=== PATIENT | male | born 1935 | race Caucasian/White ===

== ENCOUNTER 2019-01-10 08:32 | Inpatient (IN) ==
--- NOTE | 2019-01-10 08:51 | Emergency Department Note ---
Disposition Clinical Impression: Chest pain due to CAD, Elevated troponin I level Disposition: Admitted As Inpatient Condition: Fair [facility]errals: [facility] [Primary Care Provider[facility] - Forms: ED Satisfaction Letter General Adult HPI - General Chief complaint: ED Shortness of Breath/Dyspnea Stated complaint: cp, sob Time Seen by Provider: 01/10/19 08:38 Source: patient Limitations: no limitations Nursing Notes Reviewed: Yes Vital Signs Reviewed: Yes - History of Present Illness HPI Narrative: 83-year-old male with history of VA with stents, congestive heart failure, chronic renal failure presents with shortness breath and chest pain. Patient stated he has shortness of breath for a week. He started chest pain 2 hours ago. He visited [facility]. He was given aspirin, nitroglycerin, and Lasix. Patient reported pain-free when arriving at ER. Patient is on 4 L oxygen. Patient had heart attack in 2015. Onset (ago): hour(s) (2) Location: chest Pain Scale: 0 - Related Data Home Medications Medication Instructions Recorded Confirmed Acetaminophen [Tylenol] 325 mg PO QID PRN 11/24/18 01/10/19 Allopurinol [Zyloprim 100 MG] 200 mg PO DAILY 11/24/18 01/10/19 Aspirin [Lo-Dose Aspirin EC] 81 mg PO DAILY 11/24/18 01/10/19 Cholecalciferol (D-3) [Vitamin D] 4,000 unit PO DAILY 11/24/18 01/10/19 Clobetasol Propionate 0.05% 1 appl TP BID PRN 11/24/18 01/10/19 [Temovate] Clopidogrel [Plavix] 75 mg PO DAILY 11/24/18 01/10/19 Docusate Sodium [Dulcolax Stool 100 mg PO BID 11/24/18 01/10/19 Softener] Furosemide [Lasix] 10 mg PO DAILY 11/24/18 01/10/19 Insulin Glargine,Hum.rec.anlog 42 unit SQ HS 11/24/18 01/10/19 [Lantus Solostar] Isosorbide MONOnitrate (24 HR) 30 mg PO DAILY 11/24/18 01/10/19 [Imdur] Loratadine [Allergy Relief] 10 mg PO DAILY PRN 11/24/18 01/10/19 Nitroglycerin [Nitrostat] 0.4 mg SL Q5MIN PRN 11/24/18 01/10/19 Omeprazole [PriLOSEC] 20 mg PO DAILY 11/24/18 01/10/19 Pregabalin [Lyrica] 75 mg PO BID 11/24/18 01/10/19 Wheat Dextrin [Benefiber] 1 each PO DAILY PRN 11/24/18 01/10/19 amLODIPine [Norvasc] 10 mg PO DAILY 11/24/18 01/10/19 Imatinib Mesylate [Gleevec] 200 mg PO DAILY 01/10/19 01/10/19 Topiramate [Topamax] 25 mg PO DAILY 01/10/19 01/10/19 Previous Rx's Medication Instructions Recorded Metoprolol [Lopressor] 12.5 mg PO BID #28 tablet 11/28/18 Allergies Allergy/AdvReac Type Severity Reaction Status Date / Time pollen extracts Allergy Mild Congested Verified 11/24/18 14:10 tramadol Allergy See Verified 11/25/18 15:23 Comments alirocumab AdvReac See Verified 11/25/18 15:23 Comments ezetimibe [From Zetia] AdvReac See Verified 11/25/18 15:23 Comments fluvastatin AdvReac See Verified 11/25/18 15:23 Comments hydrochlorothiazide AdvReac See Verified 11/25/18 15:23 Comments isosorbide AdvReac See Verified 11/25/18 15:23 Comments lisinopril AdvReac See Verified 11/25/18 15:23 Comments pravastatin AdvReac See Verified 11/25/18 15:23 Comments propranolol AdvReac See Verified 11/25/18 15:23 Comments simvastatin AdvReac See Verified 11/25/18 15:23 Comments Constitutional: Denies: fever, chills Eyes: Denies: eye pain ENT ED: Denies: ear pain Cardiovascular: Reports: chest pain Respiratory: Reports: dyspnea. Denies: cough Gastrointestinal: Denies: abdominal pain Genitourinary: Denies: urgency Musculoskeletal: Denies: back pain Integumentary: Denies: rash Neurological: Denies: headache Psychiatric: Denies: anxiety Endocrine: Denies: fatigue Hematological/Lymphatic: Denies: easy bleeding Allergic/Immunologic: Denies: facial swelling Past Medical History - Past Medical History Medical history: Reports: cancer, CHF, COPD, diabetes, hyperlipidemia, hypertension Psychiatric history: Reports: no psych history - Social History Smoking Status: Former smoker Smokeless Tobacco Status: No Alcohol use: Reports: none Drug use: Reports: none Physical Exam - General Limitations: no limitations General appearance: alert - Head Head exam: atraumatic - Eye Eye exam: Present: normal appearance - ENT ENT exam: normal exam - Neck Neck exam: Present: normal inspection - Chest Chest inspection: Present: normal inspection, symmetric chest wall rise. Absent: tenderness - Respiratory Respiratory exam: Present: normal lung sounds bilaterally. Absent: respiratory distress, wheezes - Cardiovascular Cardiovascular exam: Present: tachycardia - Abdominal Exam Abdominal exam: Present: soft, Non-Tender - Extremities Exam Extremities exam: Present: normal inspection, full ROM. Absent: tenderness - Expanded Lower Extremity Exam Lower leg exam: Present: swelling (bilateral ankles edema) - Back Exam Back exam: Present: normal inspection, full ROM. Absent: tenderness - Neurological Exam Neurological exam: Present: alert, oriented X3 - Psychiatric Psychiatric exam: Present: normal affect, normal mood - Skin Skin exam: Present: warm, intact Course Vital Signs Temperature 97.7 F 01/10/19 08:37 Pulse Rate 105 01/10/19 08:37 Respiratory Rate 24 01/10/19 08:37 Blood Pressure 155/85 01/10/19 08:37 O2 Sat by Pulse Oximetry 97 01/10/19 08:37 Temperature 97.7 F 01/10/19 08:37 Pulse Rate 94 01/10/19 12:14 Respiratory Rate 18 01/10/19 12:14 Blood Pressure 133/61 01/10/19 12:14 O2 Sat by Pulse Oximetry 96 01/10/19 12:14 Oxygen Delivery Oxygen Delivery Nasal Cannula Medical Decision Making - [facility] Narrative Medical decision making narrative: 83 year old male with history of VA, congestive heart failure, kidney failure presents with shortness of breath and chest pain. Pt reported shortness of breath for a week. Started chest pressure this morning. [facility] and [facility] one dose of ASA, nitroglycerin and Lasix 40 mg IV. Patient reported resolved pain in ED. Physical exam: Patient is on 4 L oxygen, no breath distress, bilateral lungs are clear, mild edema in bilateral ankles. EKG: no ST elevation. Chest xray indicated pleural effusion Labs: troponin 0.25 elevated, cr. 2.05 elevated at his baseline. Spoke with oncall resource development director Dr. Segovia. He suggested to start Heparin drip. He will see the patient in floor. Impression: chest pain, elevated troponin. Pt will be admitted to hospital for Heparin drip. Dr. John has seen the patient and agrees the above plan. Dr. John: I discussed the case with the ABC and reviewed the care and agree with her findings assessment plan. The patient presented with chest pain, has a known history of CAD, troponin notably elevated, cardiology and hospitalist consult. Heparin initiated. The patient has already taken aspirin. He appears to be stable and will be admitted for further evaluation. - Lab Data Lab results reviewed: Yes I reviewed the patient's lab results. Result diagrams: 01/10/19 09:42 01/10/19 09:42 Lab Results 01/10/19 01/10/19 01/10/19 Range/Units 09:42 09:42 09:42 WBC 4.0 L (4.3-11.1) K/mcL RBC 2.98 L (4.19-5.50) M/mcL Hgb 9.4 L (12.9-16.9) g/dL Hct 29.5 L (37.5-50.1) % MCV 99.0 (83.0-100.0) fL MCH 31.5 (28.0-33.3) pg MCHC 31.9 (31.6-35.5) g/dL RDW 18.1 H (11.5-14.5) % Plt Count 118 L (140-400) K/mcL MPV 11.5 (9.4-12.4) fL Immature Gran % 0.5 (0-4) % Seg Neutrophils % 93.2 % Lymphocytes % 4.8 % Monocytes % 1.5 % Eosinophils % 0.0 % Basophils % 0.0 % Neutrophils # 3.7 (1.6-8.9) K/mcL Lymphocytes # 0.2 L (0.6-4.6) K/mcL Monocytes # 0.1 (0.0-1.3) K/mcL Eosinophils # 0.0 (0.0-0.6) K/mcL Basophils # 0.0 (0.0-0.2) K/mcL Platelet Estimate Slight Decrease L (Normal) PT 12.9 H (9.4-12.1) Seconds INR 1.1 Heparin Anti-Xa, Unfract (0.30-0.70) IU/mL Sodium 138 (136-145) mEq/L Potassium 4.1 (3.5-5.1) mEq/L Chloride 110 H (98-107) mEq/L Carbon Dioxide 19 L (23-29) mEq/L BUN 33 H (8-23) mg/dL Creatinine 2.05 H (0.70-1.30) mg/dL Est GFR ( Amer) 38 L (> 60) Est GFR (Non-Af Amer) 31 L (> 60) BUN/Creatinine Ratio 16 (6-26) Glucose 217 H (70-105) mg/dL POC Glucose (70-99) mg/dL Est Mean Plasma Glucose mg/dl Hemoglobin A1c ( - 5.6) % Calculated Osmolality 300 (280-300) Lactic Acid (0.5-2.2) mmol/L Calcium 8.1 L (8.6-10.3) mg/dL Total Bilirubin 0.3 (0.3-1.0) mg/dL AST 17 (13-39) Units/L ALT 14 (7-52) Units/L Alkaline Phosphatase 119 H (34-104) Units/L Troponin I 0.25 H* (< 0.04) ng/mL C-Reactive Protein (Less than 10) mg/L Serum Total Protein 6.8 (6.4-8.9) g/dL Albumin 3.8 (3.5-5.7) g/dL Globulin 3.0 (2.4-3.5) g/dL Albumin/Globulin Ratio 1.3 (1.1-2.2) 01/10/19 01/10/19 01/10/19 Range/Units 09:42 09:42 09:42 WBC (4.3-11.1) K/mcL RBC (4.19-5.50) M/mcL Hgb (12.9-16.9) g/dL Hct (37.5-50.1) % MCV (83.0-100.0) fL MCH (28.0-33.3) pg MCHC (31.6-35.5) g/dL RDW (11.5-14.5) % Plt Count (140-400) K/mcL MPV (9.4-12.4) fL Immature Gran % (0-4) % Seg Neutrophils % % Lymphocytes % % Monocytes % % Eosinophils % % Basophils % % Neutrophils # (1.6-8.9) K/mcL Lymphocytes # (0.6-4.6) K/mcL Monocytes # (0.0-1.3) K/mcL Eosinophils # (0.0-0.6) K/mcL Basophils # (0.0-0.2) K/mcL Platelet Estimate (Normal) PT (9.4-12.1) Seconds INR Heparin Anti-Xa, Unfract (0.30-0.70) IU/mL Sodium (136-145) mEq/L Potassium (3.5-5.1) mEq/L Chloride (98-107) mEq/L Carbon Dioxide (23-29) mEq/L BUN (8-23) mg/dL Creatinine (0.70-1.30) mg/dL Est GFR ( Amer) (> 60) Est GFR (Non-Af Amer) (> 60) BUN/Creatinine Ratio (6-26) Glucose (70-105) mg/dL POC Glucose (70-99) mg/dL Est Mean Plasma Glucose 148 mg/dl Hemoglobin A1c 6.8 H ( - 5.6) % Calculated Osmolality (280-300) Lactic Acid 1.3 (0.5-2.2) mmol/L Calcium (8.6-10.3) mg/dL Total Bilirubin (0.3-1.0) mg/dL AST (13-39) Units/L ALT (7-52) Units/L Alkaline Phosphatase (34-104) Units/L Troponin I (< 0.04) ng/mL C-Reactive Protein 16 H (Less than 10) mg/L Serum Total Protein (6.4-8.9) g/dL Albumin (3.5-5.7) g/dL Globulin (2.4-3.5) g/dL Albumin/Globulin Ratio (1.1-2.2) 01/10/19 01/10/19 01/10/19 Range/Units 12:14 12:14 14:05 WBC (4.3-11.1) K/mcL RBC (4.19-5.50) M/mcL Hgb (12.9-16.9) g/dL Hct (37.5-50.1) % MCV (83.0-100.0) fL MCH (28.0-33.3) pg MCHC (31.6-35.5) g/dL RDW (11.5-14.5) % Plt Count (140-400) K/mcL MPV (9.4-12.4) fL Immature Gran % (0-4) % Seg Neutrophils % % Lymphocytes % % Monocytes % % Eosinophils % % Basophils % % Neutrophils # (1.6-8.9) K/mcL Lymphocytes # (0.6-4.6) K/mcL Monocytes # (0.0-1.3) K/mcL Eosinophils # (0.0-0.6) K/mcL Basophils # (0.0-0.2) K/mcL Platelet Estimate (Normal) PT 13.0 H (9.4-12.1) Seconds INR 1.2 Heparin Anti-Xa, Unfract 0.04 L (0.30-0.70) IU/mL Sodium (136-145) mEq/L Potassium (3.5-5.1) mEq/L Chloride (98-107) mEq/L Carbon Dioxide (23-29) mEq/L BUN (8-23) mg/dL Creatinine (0.70-1.30) mg/dL Est GFR ( Amer) (> 60) Est GFR (Non-Af Amer) (> 60) BUN/Creatinine Ratio (6-26) Glucose (70-105) mg/dL POC Glucose 287 H (70-99) mg/dL Est Mean Plasma Glucose mg/dl Hemoglobin A1c ( - 5.6) % Calculated Osmolality (280-300) Lactic Acid (0.5-2.2) mmol/L Calcium (8.6-10.3) mg/dL Total Bilirubin (0.3-1.0) mg/dL AST (13-39) Units/L ALT (7-52) Units/L Alkaline Phosphatase (34-104) Units/L Troponin I 0.24 H* (< 0.04) ng/mL C-Reactive Protein (Less than 10) mg/L Serum Total Protein (6.4-8.9) g/dL Albumin (3.5-5.7) g/dL Globulin (2.4-3.5) g/dL Albumin/Globulin Ratio (1.1-2.2) - Radiology Data Radiology results reviewed: Yes I reviewed the patient's radiology results. EXAMINATION: TWO XRAY VIEWS OF THE CHEST 01/10/2019 8:57 am COMPARISON: 11/24/2018. HISTORY: Chest pain with shortness of breath. FINDINGS: The heart size is enlarged. The pulmonary vasculature is mildly congested. There is increased density involving the right lower chest. There has been removal of the right central venous line. No pneumothorax is seen. There is also increased density involving the left lower lung zone. XR/XR chest 2V IMPRESSION: 1. Cardiomegaly with vascular congestion. 2. Right pleural effusion with associated atelectasis and/or infiltrate. 3. Left lower lobe atelectasis. D/ / Ricki Damon MD / Ricki Damon MD Interpreting Provider: Ricki Damon MD
[2019-01-10 10:09] LABS: Hematocrit 29.5 % (37.5-50.1); Hemoglobin 9.4 g/dL (12.9-16.9); Immature Granulocytes % 0.5 % (0-4); Lymphocytes # 0.2 K/mcL (0.6-4.6); Lymphocytes % 4.8 %; Mean Corpuscular HGB Conc 31.9 g/dL (31.6-35.5); Mean Corpuscular Hemoglobin 31.5 pg (28.0-33.3); Mean Platelet Volume 11.5 fL (9.4-12.4); Monocytes # 0.1 K/mcL (0.0-1.3); Monocytes % 1.5 %; Neutrophils # 3.7 K/mcL (1.6-8.9); Platelet Count 118 K/mcL (140-400); Red Blood Count 2.98 M/mcL (4.19-5.50); Red Cell Distribution Width 18.1 % (11.5-14.5); Segmented Neutrophils % 93.2 %
[2019-01-10 10:12] LABS: Platelet Estimate Slight Decrease (Normal)
[2019-01-10 10:17] LABS: INR 1.1; Prothrombin Time 12.9 Seconds (9.4-12.1)
[2019-01-10 10:35] LABS: Albumin 3.8 g/dL (3.5-5.7); Albumin/Globulin Ratio 1.3 (1.1-2.2); Bilirubin,Total 0.3 mg/dL (0.3-1.0); Calcium 8.1 mg/dL (8.6-10.3); Potassium 4.1 mEq/L (3.5-5.1); Total Protein 6.8 g/dL (6.4-8.9); Troponin I 0.25 ng/mL (< 0.04)
[2019-01-10] MEDS ORDERED: *HR* Heparin 5,000 UNIT/ML VIAL IVP ONE (11:08)
[2019-01-10] MEDS ORDERED: *HR* Heparin 5,000 UNIT/ML VIAL IVP PRN ×2 (11:08)
[2019-01-10] MEDS ORDERED: Naloxone 0.4 MG/ML INJ IVP PRN (12:04)
[2019-01-10] MEDS ORDERED: Ondansetron 4 MG/2 ML VIAL IVP PRN (12:04)
[2019-01-10] MEDS ORDERED: Nitroglycerin 0.4 MG TAB.SUBL SL PRN (12:07)
--- NOTE | 2019-01-10 12:11 | Internal Med History&Physical ---
Date of Encounter: 01/10/19 Time of Encounter: 12:09 Internal Medicine - H&P: HPI Chief complaint: CHEST PAIN Admitted From: Emergency Dept Plans for Post Hospital Care: Home History of present illness: Mr. Aguilar is a 83 year old male with history of CAD status post 3 stent and last 1 2015 CHF, CK D, diabetes mellitus, CML following oncologists at [facility] and currently on treatment, COPD, hyperlipidemia, hypertension was transferred to [facility] from the [facility] with sudden onset of chest pain while resting this morning nonradiating 5 x 6/10,. Patient got admitted for shortness of breath yesterday at [facility]. Patient was recently started 2 L oxygen by nasal cannula 2 weeks ago by home health nurse. Patient was recently discharged from this hospital for renal failure and required 2 times hemodialysis and patient recovered and sent back to the home with home health. Patient denies fever chills nausea vomiting abdominal pain urinary bowel complaint diarrhea. Patient complained of yellowish productive a sputum, fatigue, generalized weakness and tiredness. Denies any recent antibiotic Past Med Surg Social Fam HX - Past Medical History Medical history: cancer, CHF, COPD, diabetes, hyperlipidemia, hypertension Psychiatric history: no psych history - Past Surgical History Additional surgical history: 3 stents placed - Social History Smoking Status: Former smoker Smokeless Tobacco Status: No Alcohol use: none Drug use: none Internal Medicine - H&P: Meds Acetaminophen [Tylenol] 325 mg PO QID PRN 11/24/18 [History] Allopurinol [Zyloprim 100 MG] 200 mg PO DAILY 11/24/18 [History] Aspirin [Lo-Dose Aspirin EC] 81 mg PO DAILY 11/24/18 [History] Cholecalciferol (D-3) [Vitamin D] 4,000 unit PO DAILY 11/24/18 [History] Clobetasol Propionate 0.05% [Temovate] 1 appl TP BID PRN 11/24/18 [History] Clopidogrel [Plavix] 75 mg PO DAILY 11/24/18 [History] Docusate Sodium [Dulcolax Stool Softener] 100 mg PO BID 11/24/18 [History] Furosemide [Lasix] 10 mg PO DAILY 11/24/18 [History] Insulin Glargine,Hum.rec.anlog [Lantus Solostar] 42 unit SQ HS 11/24/18 [History] Isosorbide MONOnitrate (24 HR) [Imdur] 30 mg PO DAILY 11/24/18 [History] Loratadine [Allergy Relief] 10 mg PO DAILY PRN 11/24/18 [History] Nitroglycerin [Nitrostat] 0.4 mg SL Q5MIN PRN 11/24/18 [History] Omeprazole [PriLOSEC] 20 mg PO DAILY 11/24/18 [History] Pregabalin [Lyrica] 75 mg PO BID 11/24/18 [History] Wheat Dextrin [Benefiber] 1 each PO DAILY PRN 11/24/18 [History] amLODIPine [Norvasc] 10 mg PO DAILY 11/24/18 [History] Metoprolol [Lopressor] 12.5 mg PO BID #28 tablet 11/28/18 [Rx] Imatinib Mesylate [Gleevec] 200 mg PO DAILY 01/10/19 [History] Topiramate [Topamax] 25 mg PO DAILY 01/10/19 [History] Allergy/AdvReac Type Severity Reaction Status Date / Time pollen extracts Allergy Mild Congested Verified 11/24/18 14:10 tramadol Allergy See Verified 11/25/18 15:23 Comments alirocumab AdvReac See Verified 11/25/18 15:23 Comments ezetimibe [From Zetia] AdvReac See Verified 11/25/18 15:23 Comments fluvastatin AdvReac See Verified 11/25/18 15:23 Comments hydrochlorothiazide AdvReac See Verified 11/25/18 15:23 Comments isosorbide AdvReac See Verified 11/25/18 15:23 Comments lisinopril AdvReac See Verified 11/25/18 15:23 Comments pravastatin AdvReac See Verified 11/25/18 15:23 Comments propranolol AdvReac See Verified 11/25/18 15:23 Comments simvastatin AdvReac See Verified 11/25/18 15:23 Comments All Systems PM: A 10-system review of systems was performed and is negative for pertinent findings except as documented above in the HPI. - Constitutional Vitals: Temp Pulse Resp BP Pulse Ox 97.7 F 105 24 155/85 97 01/10/19 08:37 01/10/19 08:37 01/10/19 08:37 01/10/19 08:37 01/10/19 08:37 Exam: General appearance: Mild respiratory distress. Get slight out of breath when completing the sentence, A&O X 3 Head exam: Atraumatic Eye exam: EOMI, PERRLA ENT exam: Moist oral mucosa Neck nontender, supple Respiratory exam: Bibasilar crackles Cardiovascular exam: Regular rate and rhythm, no systolic murmur Abdominal exam: Soft, nontender, nondistended, positive bowel sounds Extremities exam: No calf tenderness, +2 pedal edema Present: Skin-no rash, warm, dry, intact Neurological exam: Alert, awake, oriented 3, CN II-XII intact, no focal deficits. No facial droop. Normal speech. Internal Med - H&P Results - Labs CBC & Chem 7: 01/10/19 09:42 01/10/19 09:42 Labs: Short CBC 01/10/19 Range/Units 09:42 WBC 4.0 L (4.3-11.1) K/mcL Hgb 9.4 L (12.9-16.9) g/dL Hct 29.5 L (37.5-50.1) % Plt Count 118 L (140-400) K/mcL Neutrophils # 3.7 (1.6-8.9) K/mcL BMP 01/10/19 09:42 Sodium 138 Potassium 4.1 Chloride 110 H Carbon Dioxide 19 L BUN 33 H Creatinine 2.05 H Glucose 217 H Calcium 8.1 L Cardiac Enzymes 01/10/19 Range/Units 09:42 Troponin I 0.25 H* (< 0.04) ng/mL Liver Function 01/10/19 Range/Units 09:42 Total Bilirubin 0.3 (0.3-1.0) mg/dL AST 17 (13-39) Units/L ALT 14 (7-52) Units/L Alkaline Phosphatase 119 H (34-104) Units/L Albumin 3.8 (3.5-5.7) g/dL - Impressions ITS Impressions Chest X-Ray 01/10/19 08:42 IMPRESSION: 1. Cardiomegaly with vascular congestion. 2. Right pleural effusion with associated atelectasis and/or infiltrate. 3. Left lower lobe atelectasis. D/ / Ricki Damon MD / Ricki Damon MD Interpreting Provider: Ricki Damon MD - Assessment and Plan (1) NSTEMI (non-ST elevated myocardial infarction) Current Visit: Yes Status: Acute Assessment and plan: History of CAD status post stent. Had active chest pain in the morning but chest pain-free now. Raised troponin. ER physician talked to cardiology and he advise to start cardiac heparin drip. Telemetry, serial troponin, aspirin and Plavix statin beta katey nitrate. Echocardiogram recently done. He may need limited echocardiogram if cardiology advice so. Increased troponin can also be due to demand ischemia secondary to infection pneumonia and also volume overloaded due to CHF exacerbation. Echo done on 11/24/18 impressions: LVEF 60-65%. Mild left ventricular diastolic dysfunction. Normal right ventricular structure and function. No significant valvular dysfunction. No pulmonary hypertension. Left Ventricular Wall Motion: Rest Echo Findings All wall segments showed normal motion. (2) Pneumonia Current Visit: Yes Status: Acute Assessment and plan: Possibility of hospital-acquired pneumonia as patient had recent hospitalization last month. Patient had productive shortness of breath, cough, chest x-ray abnormal. Patient also has low white count that could be early sepsis but normal lactic acid-blood culture 2 ordered. Zosyn is started. Continue oxygen supplementation, DuoNeb spirometry (3) CHF (congestive heart failure) Current Visit: No Status: Suspected Assessment and plan: Patient appear in CHF exacerbation and volume overloaded. Will give Lasix 40 mg IV daily with a strict I&O's and daily weight. Further titration of Lasix based on the response. IMPRESSION: 1. Cardiomegaly with vascular congestion. 2. Right pleural effusion with associated atelectasis and/or infiltrate. 3. Left lower lobe atelectasis. Qualifiers: Heart failure type: diastolic Heart failure chronicity: acute Qualified Code(s): I50.31 - Acute diastolic (congestive) heart failure (4) CKD (chronic kidney disease) stage 3, GFR 30-59 ml/min Current Visit: Yes Status: Acute Assessment and plan: Baseline creatinine 2.25. Avoid nephrotoxic drug. BMP monitoring. Will con sult autism motor specialist if needed. Patient required urgent hemo- dialysis twice and last admission (5) Coronary artery disease Current Visit: No Status: Chronic Assessment and plan: Status post stent. Continue above medicine Qualifiers: Coronary Disease-Associated Artery/Lesion type: [place] artery [place] vs. transplanted heart: [place] heart Associated angina: without angina Qualified Code(s): I25.10 - Atherosclerotic heart disease of [place] coronary artery without angina pectoris (6) Hypertension Current Visit: No Status: Chronic Assessment and plan: close monitoring. Home medicine Qualifiers: Hypertension type: essential hypertension Qualified Code(s): I10 - Essential (primary) hypertension (7) CML (chronic myelocytic leukemia) Current Visit: Yes Status: Acute Assessment and plan: Patient is on active treatment. Consulted oncology for further recommendation if needed. Patient follow MANUEL see outpatient at cancer clinic. (8) Diabetes mellitus Current Visit: Yes Status: Acute Assessment and plan: Hemoglobin A1c ordered. Accu-Chek, SSI medium. Diabetic diet. Qualifiers: Diabetes mellitus type: type 2 Diabetes mellitus computer terminal operator insulin use: with computer terminal operator use Diabetes mellitus complication detail: with chronic kidney disease Chronic kidney disease stage: stage 3 (moderate) Qualified Code(s): E11.22 - Type 2 diabetes mellitus with diabetic chronic kidney disease; N18.3 - Chronic kidney disease, stage 3 (moderate); Z79.4 - manager terminal (current) use of insulin (9) Leucopenia Current Visit: Yes Status: Acute Assessment and plan: Could be due to early sepsis as mentioned above or related with underlying cancer. Continue to monitor. (10) DVT prophylaxis Current Visit: No Status: Acute Assessment and plan: Heparin drip at present - Time Spent With Patient Total time spent is greater than 50% in coordination of care (as documented) at patient's floor/unit and/or counseling patient: Greater than 35 minutes
[2019-01-10] MEDS: Heparin 25,000 UNIT/250 ML D5W 25,000 UNIT/250 ML IV.SOLN IVC SCH (12:12)
[2019-01-10] MEDS ORDERED: Ipratropium/Albuterol Neb 3 ML IH PRN (12:17)
[2019-01-10 12:44] LABS: Heparin anti-factor XA UFH 0.04 IU/mL (0.30-0.70); INR 1.2
[2019-01-10] MEDS ORDERED: Dextrose Gel 15 GM/37.5 ML TUBE PO PRN ×2 (12:51)
[2019-01-10] MEDS ORDERED: D5% in Water 1,000 ML IVC PRN (12:51)
[2019-01-10] MEDS ORDERED: *HR* Dextrose 50 % in Water (Syg) 50 ML SYRINGE IVP PRN (12:51)
[2019-01-10] MEDS ORDERED: Acetaminophen 325 MG TABLET PO PRN (12:54)
[2019-01-10] MEDS ORDERED: Loratadine 10 MG TABLET PO PRN (12:54)
[2019-01-10 13:31] LABS: Estimated Average Glucose 148 mg/dl; Hemoglobin A1C 6.8 %
[2019-01-10] MEDS: Insulin LISPRO 300 UNITS/3 ML VIAL SQ SCH ×3 (14:47→21:28)
[2019-01-10] MEDS: Piperacillin/Tazobactam 3.375 GM in 0.9 % Sodium Chloride Mini Bag 100 ML IVPB SCH ×2 (14:48→21:29)
--- NOTE | 2019-01-10 16:27 | Oncology Inp Consult Note ---
<Eben Nava S - Last Filed: 01/10/19 18:59> Date of Encounter: 01/10/19 - Data of Consult Requesting Physician: Jill Loera Primary [facility] Provider: [facility] Medications and Allergies Acetaminophen [Tylenol] 325 mg PO QID PRN 11/24/18 [History] Allopurinol [Zyloprim 100 MG] 200 mg PO DAILY 11/24/18 [History] Aspirin [Lo-Dose Aspirin EC] 81 mg PO DAILY 11/24/18 [History] Cholecalciferol (D-3) [Vitamin D] 4,000 unit PO DAILY 11/24/18 [History] Clobetasol Propionate 0.05% [Temovate] 1 appl TP BID PRN 11/24/18 [History] Clopidogrel [Plavix] 75 mg PO DAILY 11/24/18 [History] Docusate Sodium [Dulcolax Stool Softener] 100 mg PO BID 11/24/18 [History] Furosemide [Lasix] 10 mg PO DAILY 11/24/18 [History] Insulin Glargine,Hum.rec.anlog [Lantus Solostar] 42 unit SQ HS 11/24/18 [History] Isosorbide MONOnitrate (24 HR) [Imdur] 30 mg PO DAILY 11/24/18 [History] Loratadine [Allergy Relief] 10 mg PO DAILY PRN 11/24/18 [History] Nitroglycerin [Nitrostat] 0.4 mg SL Q5MIN PRN 11/24/18 [History] Omeprazole [PriLOSEC] 20 mg PO DAILY 11/24/18 [History] Pregabalin [Lyrica] 75 mg PO BID 11/24/18 [History] Wheat Dextrin [Benefiber] 1 each PO DAILY PRN 11/24/18 [History] amLODIPine [Norvasc] 10 mg PO DAILY 11/24/18 [History] Metoprolol [Lopressor] 12.5 mg PO BID #28 tablet 11/28/18 [Rx] Imatinib Mesylate [Gleevec] 200 mg PO DAILY 01/10/19 [History] Topiramate [Topamax] 25 mg PO DAILY 01/10/19 [History] 3 Allergy/AdvReac Type Severity Reaction Status Date / Time pollen extracts Allergy Mild Congested Verified 11/24/18 14:10 tramadol Allergy See Verified 11/25/18 15:23 Comments alirocumab AdvReac See Verified 11/25/18 15:23 Comments ezetimibe [From Zetia] AdvReac See Verified 11/25/18 15:23 Comments fluvastatin AdvReac See Verified 11/25/18 15:23 Comments hydrochlorothiazide AdvReac See Verified 11/25/18 15:23 Comments isosorbide AdvReac See Verified 11/25/18 15:23 Comments lisinopril AdvReac See Verified 11/25/18 15:23 Comments pravastatin AdvReac See Verified 11/25/18 15:23 Comments propranolol AdvReac See Verified 11/25/18 15:23 Comments simvastatin AdvReac See Verified 11/25/18 15:23 Comments Consult Discharge Plan - Plan Referrals: [facility] [Primary Care Provider] - Inpatient Charges Provider: Dr. Reena Nava Consult - Inpatient: [id number] - Attending Attestation I examined this patient and my medical decision-making was reviewed with the Advanced Practice Nurse. I agree with the documented findings, disposition and treatment plan as described except to the extent set forth below. 1. CML diagnosed in outside hospital at [facility]. Started on imatinib October 2018 and standard dose 400 mg daily. Apparently he was hospitalized with a tumor lysis syndrome. His neutrophils at that time or only 11,000 Since then it has dose reduced 200 mg by mouth twice a day 2. Currently admitted with Sepsis pneumonia treated with IV antibiotics 3. Mildly elevated troponin of 0.24 with CHF symptoms. Imatinib can cause fluid retention as well. Currently CBC Currently neutrophils between [id number]. Platelets have actually improved from before currently 118 and mild anemia hemoglobin between 9-10. We will try to obtain records from [facility] Had a long discussion with the patient. He does have 1+ lower extremity edema. I am not sure if it secondary to imatinib. It should be okay to hold imatinib during the hospitalization and resume on discharge. <Jennifer Haynes - Last Filed: 01/10/19 19:13> Date of Encounter: 01/10/19 Time of Encounter: 17:30 Assessment and Plan (1) CML (chronic myelocytic leukemia) Status: Acute Assessment and plan: Newly diagnosed CML by [facility], started on Imatinib September, He was hospitalized shortly after initiation with tumor lysis syndrome. His neutrophils at that time were around 11,000 Since then it was dose reduced 100 mg by mouth twice a day according to patient We will request records from [facility] Discussed with Dr. Nava-given his good control and presence of BLE edema with CHF exacerbation, he may hold imatinib during his acute admission Imatinib can contribute to fluid retention - Data of Consult Requesting Physician: Jill Loera Primary Care Provider: PCP [place] - Consult Narrative Reason for consult: CML History of present illness: Mr. Aguilar is an 82 year old male with past medical history significant for CML, diabetes on insulin, CKD stage IV, CAD, hypertension He was recently diagnosed with CML around September 2018 and started on imatinib, he sees Dr. Nichols at [facility]. Shortly after imatinib was initiated he was admitted with TLS that was treated and had required urgent hemodialysis. He was transferred to [facility] from the [facility] with sudden onset of chest pain while resting this morning nonradiating 5 x 6/10,. Patient got admitted for shortness of breath yesterday at [facility]. Patient was recently started 2 L oxygen by nasal cannula 2 weeks ago by home health nurse. He has been admitted with pneumonia, chest pain with elevated troponin on heparin gtt and CHF exacerbation. Past Med Surg Social Fam HX - Past Medical History Medical history: cancer, CHF, COPD, diabetes, hyperlipidemia, hypertension Psychiatric history: no psych history - Past Surgical History Additional surgical history: 3 stents placed - Social History Smoking Status: Former smoker Smokeless Tobacco Status: No Alcohol use: none Drug use: none Constitutional: Present: anorexia, fatigue. Absent: chills, fever(s), weight loss Eyes: Absent: change in vision Nose, mouth and throat: Absent: dysphagia, odynophagia Cardiovascular: Present: as per HPI, chest pain, edema Respiratory: Present: cough, dyspnea Gastrointestinal: Absent: abdominal pain, constipation, diarrhea, nausea, vomiting Genitourinary: Absent: dysuria Musculoskeletal: Present: muscle weakness Integumentary: Absent: rash, wounds Neurological: Absent: confusion, dizziness, focal weakness Psychiatric: Present: as per HPI Hematologic/Lymphatic: Present: as per HPI Oncology - Exam - Constitutional General appearance: cooperative, no acute distress, obese, no febrile Exam: appears uncomfortable and short of breath - Head Head exam: Present: atraumatic - ENT ENT exam: Present: mucous membranes moist, normal oropharynx - Respiratory Respiratory exam: Present: decreased breath sounds, CTAB. Absent: respiratory distress - Cardiovascular Cardiovascular exam: Present: RRR - GI/Abdominal GI/Abdominal exam: Present: normal bowel sounds, soft. Absent: tenderness - Additional comments: wright catheter with clear yellow urine - Extremities Exam Extremities exam: Present: pedal edema. Absent: calf tenderness Additional comments: BLE edema - Neurological Exam Neurological exam: Present: alert, oriented X3, no focal deficits, strengths equal and symetr throughout - Psychiatric Psychiatric exam: Present: normal affect, normal mood - Skin Skin exam: Present: dry, intact, normal color, warm
--- NOTE | 2019-01-10 17:34 | Electrocardiograph Report ---
[place] [id number] Test Date: 2019-01-10 Pat Name: Gonzalez Aguilar Department: [id number] Room: 2A22 Gender: M Shuttle Truck Driver: : [id number] Requested By: Samm Olivo Order Number: [id number] Reading MD: Jolly Puga Measurements Intervals [place] Rate: 99 P: -25 GA: 182 QRS: 86 QRSD: 150 T: -8 QT: 366 QTc: 470 Interpretive Statements Sinus rhythm Right bundle branch block Inferior infarct, age indeterminate Electronically Signed On 01-10-2019 17:32:59 EDT by Jolly Puga
--- NOTE | 2019-01-10 17:47 | Electrocardiograph Report ---
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
[2019-01-10] MEDS: Furosemide 40 MG/4 ML VIAL IVP SCH (18:01)
[2019-01-10] MEDS ORDERED: Menthol 9.1 MG LOZENGE PO PRN (21:47)
[2019-01-11 00:50] LABS: Hematocrit 31.7 % (37.5-50.1); Hemoglobin 9.9 g/dL (12.9-16.9); Immature Granulocytes % 0.6 % (0-4); Lymphocytes # 0.3 K/mcL (0.6-4.6); Lymphocytes % 4.6 %; Mean Corpuscular HGB Conc 31.2 g/dL (31.6-35.5); Mean Corpuscular Hemoglobin 31.3 pg (28.0-33.3); Mean Corpuscular Volume 100.3 fL (83.0-100.0); Mean Platelet Volume 11.5 fL (9.4-12.4); Monocytes # 0.4 K/mcL (0.0-1.3); Monocytes % 6.1 %; Platelet Count 143 K/mcL (140-400); Red Blood Count 3.16 M/mcL (4.19-5.50); Red Cell Distribution Width 18.5 % (11.5-14.5); Segmented Neutrophils % 88.7 %
[2019-01-11 00:52] LABS: Neutrophils # 5.9 K/mcL (1.6-8.9)
[2019-01-11 01:10] LABS: Calcium 8.2 mg/dL (8.6-10.3); Chol/HDL Ratio 2.9 (0-4.9); Potassium 4.6 mEq/L (3.5-5.1)
[2019-01-11] MEDS: Piperacillin/Tazobactam 3.375 GM in 0.9 % Sodium Chloride Mini Bag 100 ML IVPB SCH ×3 (06:28→21:03)
[2019-01-11] MEDS: Aspirin Enteric Coated 81 MG Tablet PO SCH (08:33)
[2019-01-11] MEDS: Isosorbide MONOnitrate (24 HR) 30 MG TAB.ER.24H PO SCH (08:34)
[2019-01-11] MEDS: Cholecalciferol (D-3) 1,000 UNIT TABLET PO SCH (08:34)
[2019-01-11] MEDS: Furosemide 40 MG/4 ML VIAL IVP SCH (08:34)
[2019-01-11] MEDS: Insulin LISPRO 300 UNITS/3 ML VIAL SQ SCH ×4 (08:35→21:05)
[2019-01-11] MEDS: IMATINIB MESYLATE 200 MG PO SCH (08:35)
--- NOTE | 2019-01-11 10:59 | Cardiology Consult Note ---
Date of Encounter: 01/11/19 Time of Encounter: 09:00 Assessment and Plan (1) Pneumonia Current Visit: Yes Status: Acute Per cardiology: -Admitted with PNA. -Management per primary service. Qualifiers: Pneumonia type: due to unspecified organism Laterality: unspecified laterality Lung location: unspecified part of lung Qualified Code(s): J18.9 - Pneumonia, unspecified organism (2) CHF (congestive heart failure) Current Visit: No Status: Chronic Per cardiology: -Known diastolic CHF, on diuretics at home. -Chest x-ray with cardiomegaly with vascular congestion and right pleural effusion. -BNP 268. -ON IV lasix, currently net negative 1100ml. -Reports symptom improvement, however still requiring higher O2 than baseline. -TTE 10/2018 with LVEF preserved, no wall motion abnormalities. -Agree with diuresis. Monitor renal function closely. Consider nephrology consult. -Strict i/os, fluid restriction, daily weights. Qualifiers: Heart failure type: diastolic Heart failure chronicity: acute on chronic Qualified Code(s): I50.33 - Acute on chronic diastolic (congestive) heart failure (3) Elevated troponin I level Current Visit: Yes Status: Acute Per cardiology: -Troponins 0.25, 0.24, 0.26 in the setting of PNA, CHF, CKD. -Reports atypical, pleuritic chest pain. -No acute ischemic ECG changes. -TTE 10/2018 with LVEF preserved, no wall motion abnormalities. -On heparin drip, asa, BB. Not on statin due to intolerance. -Do not suspect NSTEMI, suspect demand ischemia. Will repeat limited TTE. No cardiac rehab consult warranted. Discussion w patient/family: The assessment and plan as outlined above was discussed with the patient and/or family members who expressed understanding and agreement. All questions were answered. Thank you for involving us in the care of your patient. Please call with any questions. Discussed and reviewed with History of Present Illness Consult date: 01/10/19 Requesting physician: Emile Olivo Consult reason: elevated troponin Chief complaint: shortness of breath History of present illness: Mr. Aguilar is a 83 year old male with a relevant past medical history of CAD, DM, CKD, CHF, CML, follows at [facility], who presented to [facility] with complaints of shortness of breath. Patient states he had ongoing shortness of breath for 5 days. Patient was noted to have pneumonia and elevated troponin and patient was transferred to [facility]. Cardiology has been consulted for elevated tro ponin. Patient reports yesterday, he had one episode of chest pain while laying in bed coughing. Reports lasted a few minutes and was relieved by one nitro. Denies recurrence of chest pain. Denies exertional symptoms. Reports respiratory status has improved, however still requiring increased doses of O2. Past Med Surg Social Fam HX - Past Medical History Attestation: Yes The following information was validated with the patient. Source: patient, old records reviewed Medical history: cancer, CHF, COPD, diabetes, hyperlipidemia, hypertension Psychiatric history: no psych history - Past Surgical History Additional surgical history: 3 stents placed - Social History Smoking Status: Former smoker Smokeless Tobacco Status: No Alcohol use: none Drug use: none Medications and Allergies Acetaminophen [Tylenol] 325 mg PO QID PRN 11/24/18 [History] Allopurinol [Zyloprim 100 MG] 200 mg PO DAILY 11/24/18 [History] Aspirin [Lo-Dose Aspirin EC] 81 mg PO DAILY 11/24/18 [History] Cholecalciferol (D-3) [Vitamin D] 4,000 unit PO DAILY 11/24/18 [History] Clobetasol Propionate 0.05% [Temovate] 1 appl TP BID PRN 11/24/18 [History] Clopidogrel [Plavix] 75 mg PO DAILY 11/24/18 [History] Docusate Sodium [Dulcolax Stool Softener] 100 mg PO BID 11/24/18 [History] Furosemide [Lasix] 10 mg PO DAILY 11/24/18 [History] Insulin Glargine,Hum.rec.anlog [Lantus Solostar] 42 unit SQ HS 11/24/18 [History] Isosorbide MONOnitrate (24 HR) [Imdur] 30 mg PO DAILY 11/24/18 [History] Loratadine [Allergy Relief] 10 mg PO DAILY PRN 11/24/18 [History] Nitroglycerin [Nitrostat] 0.4 mg SL Q5MIN PRN 11/24/18 [History] Omeprazole [PriLOSEC] 20 mg PO DAILY 11/24/18 [History] Pregabalin [Lyrica] 75 mg PO BID 11/24/18 [History] Wheat Dextrin [Benefiber] 1 each PO DAILY PRN 11/24/18 [History] amLODIPine [Norvasc] 10 mg PO DAILY 11/24/18 [History] Metoprolol [Lopressor] 12.5 mg PO BID #28 tablet 11/28/18 [Rx] Imatinib Mesylate [Gleevec] 200 mg PO DAILY 01/10/19 [History] Topiramate [Topamax] 25 mg PO DAILY 01/10/19 [History] Allergy/AdvReac Type Severity Reaction Status Date / Time pollen extracts Allergy Mild Congested Verified 11/24/18 14:10 tramadol Allergy See Verified 11/25/18 15:23 Comments alirocumab AdvReac See Verified 11/25/18 15:23 Comments ezetimibe [From Zetia] AdvReac See Verified 11/25/18 15:23 Comments fluvastatin AdvReac See Verified 11/25/18 15:23 Comments hydrochlorothiazide AdvReac See Verified 11/25/18 15:23 Comments isosorbide AdvReac See Verified 11/25/18 15:23 Comments lisinopril AdvReac See Verified 11/25/18 15:23 Comments pravastatin AdvReac See Verified 11/25/18 15:23 Comments propranolol AdvReac See Verified 11/25/18 15:23 Comments simvastatin AdvReac See Verified 11/25/18 15:23 Comments All Systems Review: The remainder of the systems were reviewed and are negative - Cardiovascular Cardiovascular: as per HPI, chest pain at rest, dyspnea at rest, dyspnea on exertion Physical Examination Vital Signs, Last 4 Hours Temp Pulse Resp BP Pulse Ox 01/11/19 10:10 17 98 01/11/19 08:25 96 01/11/19 07:08 97.8 F 83 20 144/57 96 General: Conversant, Other (Mild conversational dyspnea noted. ) HEENT: Atraumatic, Normocephaly, Mucus Membranes Moist Neck: No JVD, Normal carotid pulses Cardiac: Reg Rate and Rhythm, Normal S1 and S2, No Murmur Lungs: Other (Inspiratory wheezes noted throughout. ) Neuro: Alert and responsive, No focal deficits noted Abdomen: Soft, Non-Tender Skin: No rashes noted on visualized skin Musculoskeletal: No Chest Wall Tenderness Extremities: No Clubbing, No Cyanosis, No Edema, Normal Pulses Results 01/11/19 00:15 01/11/19 00:15 Lab Results Active Medications Acetaminophen (Tylenol) 325 mg PO QID PRN PRN Reason: Pain Stop: 07/12/19 12:55 Albuterol/Ipratropium (Duoneb) 3 ml IH [id number] PRN PRN Reason: Shortness Of Breath Stop: 07/12/19 12:18 Last Admin: 01/11/19 10:10 Dose: 3 ml Documented by: Allopurinol (Zyloprim) 200 mg PO DAILY [facility] Stop: 07/13/19 09:01 Last Admin: 01/11/19 08:33 Dose: 200 mg Documented by: Aspirin (Aspirin Ec) 81 mg PO DAILY [facility] Stop: 07/13/19 09:01 Last Admin: 01/11/19 08:33 Dose: 81 mg Documented by: Clopidogrel Bisulfate (Plavix) 75 mg PO DAILY [facility] Stop: 07/13/19 09:01 Last Admin: 01/11/19 08:33 Dose: 75 mg Documented by: Dextrose/Water (Dextrose 50% (Syg)) 25 ml IVP AD PRN PRN Reason: Hypoglycemia Stop: 07/12/19 12:52 Docusate Sodium (Colace) 100 mg PO BID [facility]; Protocol Stop: 07/12/19 21:01 Last Admin: 01/11/19 08:33 Dose: 100 mg Documented by: Furosemide (Lasix) 40 mg IVP DAILY [facility] Stop: 07/12/19 13:01 Last Admin: 01/11/19 08:34 Dose: 40 mg Documented by: Glucagon (Glucagen) 1 mg IM ONCE PRN PRN Reason: Hypoglycemia Stop: 07/12/19 12:52 Glucose (Gluctose) 15 gm PO ONCE PRN PRN Reason: Hypoglycemia Stop: 07/12/19 12:52 Glucose (Gluctose) 30 gm PO ONCE PRN PRN Reason: Hypoglycemia Stop: 07/12/19 12:52 Heparin Sodium (Porcine) (Heparin) 4,000 unit IVP Q6HR PRN PRN Reason: SEE COMMENTS Stop: 07/12/19 11:09 Heparin Sodium (Porcine) (Heparin) 2,000 unit IVP Q6H PRN PRN Reason: SEE COMMENTS Stop: 07/12/19 11:09 Last Admin: 01/11/19 02:44 Dose: 2,000 unit Documented by: Heparin Sodium/Dextrose (Heparin 25,000 Unit/250 Ml D5w) 25,000 unit in 250 mls @ 9.968 mls/hr IVC .Q24H [facility]; Protocol Stop: 07/12/19 11:16 Last Titration: 01/11/19 10:24 Dose: 10.7 unit/kg/hr, 12.3 mls/hr Documented by: Dextrose (Dextrose 5%) 1,000 mls @ 100 mls/hr IVC .Q10H PRN PRN Reason: HYPOGLYCEMIA Stop: 07/12/19 12:52 Piperacillin Sod/Tazobactam (Sod 3.375 gm/ Sodium Chloride) 100 mls @ 25 mls/hr IVPB Q8H [facility] Stop: 07/12/19 14:01 Last Admin: 01/11/19 06:28 Dose: 25 mls/hr Documented by: Doxycycline Hyclate 100 mg/ (Sodium Chloride) 100 mls @ 100 mls/hr IVPB Q12HR [facility] Stop: 07/13/19 18:01 Insulin Human Lispro (Humalog) 0 units SQ TIDAC [facility]; Protocol Stop: 07/12/19 14:21 Last Admin: 01/11/19 08:35 Dose: 4 units Documented by: Insulin Human Lispro (Humalog) 0 units SQ [facility]; Protocol Stop: 07/12/19 21:01 Last Admin: 01/10/19 21:28 Dose: 3 units Documented by: Isosorbide Mononitrate (Imdur) 30 mg PO DAILY [facility] Stop: 07/13/19 09:01 Last Admin: 01/11/19 08:34 Dose: 30 mg Documented by: Loratadine (Claritin) 10 mg PO DAILY PRN; Protocol PRN Reason: ALLERGIES Stop: 07/12/19 12:55 Menthol (Cough Drops) 9.1 mg PO Q2H PRN PRN Reason: Cough Stop: 07/12/19 21:48 Last Admin: 01/11/19 09:11 Dose: 9.1 mg Documented by: Metoprolol Tartrate (Lopressor) 12.5 mg PO BID [facility] Stop: 07/12/19 21:01 Last Admin: 01/11/19 08:33 Dose: 12.5 mg Documented by: Naloxone HCl (Narcan) 0.4 mg IVP Q2MPRN PRN PRN Reason: SEE COMMENTS Stop: 07/12/19 12:05 Nitroglycerin (Nitroglycerin) 0.4 mg SL Q5MIN PRN PRN Reason: Chest Pain Stop: 07/12/19 12:08 Omeprazole (Prilosec) 20 mg PO DAILY [facility]; Protocol Stop: 07/13/19 09:01 Last Admin: 01/11/19 08:34 Dose: 20 mg Documented by: Ondansetron HCl (Zofran) 4 mg IVP Q8HR PRN PRN Reason: Nausea And Vomiting Stop: 07/12/19 12:05 Pharmacy Profile Note (Patient Taking Own Medication) 1 each PO DAILY [facility] Stop: 07/13/19 09:01 Last Admin: 01/11/19 08:35 Dose: Not Given Documented by: Pregabalin (Lyrica) 75 mg PO BID [facility] Stop: 07/13/19 21:01 Topiramate (Topamax) 25 mg PO DAILY [facility] Stop: 07/14/19 09:01 Vitamin D (Vitamin D) 4,000 unit PO DAILY [facility] Stop: 07/13/19 09:01 Last Admin: 01/11/19 08:34 Dose: 4,000 unit Documented by: Laboratory Tests 01/10/19 01/10/19 01/10/19 09:42 09:42 12:14 Hgb Creatinine Troponin I 0.25 H* 0.24 H* B-Natriuretic Peptide 268 H 01/10/19 01/11/19 01/11/19 18:19 00:15 00:15 Hgb 9.9 L Creatinine 2.52 H Troponin I 0.26 H* B-Natriuretic Peptide - Imaging and Cardiology Chest Xray: report reviewed Echo: pending, report reviewed - EKG Interpretation EKG results cardiology: personally reviewed (ECG with SR, HR 93. RBBB noted.), other (Telemetry reviewed with average HR previous 12 hours noted to be 88, SR. PVCs, PACs noted.) Consult Discharge Plan - Plan Referrals: [facility],PCP [Primary Care Provider] -
--- NOTE | 2019-01-11 11:50 | Internal Med Progress Note ---
Hospitalist Progress Note - Encounter Date of Encounter: 01/11/19 Time of Encounter: 09:00 - Subjective Interval History: hbarti was seen and examined at bedside. denies hest pain, fever, chills. does report that he is more Out of breath than usual. Reports respiratory status has improved, however still requiring increased doses of O2 tolerating PO diet. all questions answered. - Exam Vitals: Temp Pulse Resp BP Pulse Ox 97.8 F 71 20 139/57 93 01/11/19 11:30 01/11/19 11:30 01/11/19 11:30 01/11/19 11:30 01/11/19 11:30 Exam: General appearance: Mild respiratory distress. speaks in 5 word sentences, does become SOB while completing sentences. A&O X 3, obese Head exam: Atraumatic Eye exam: EOMI, PERRLA ENT exam: Moist oral mucosa Neck nontender, supple Respiratory exam: Bibasilar crackles Cardiovascular exam: Regular rate and rhythm, could not appreciate murmur Abdominal exam: Soft, nontender, nondistended, positive bowel sounds Extremities exam: No calf tenderness, +2 pedal edema Present Skin-no rash, warm, dry, intact Neurological exam: Alert, awake, oriented 3, nofocal deficit - Assessment and Plan (1) CHF (congestive heart failure) Current Visit: No Status: Chronic Assessment and Plan: acute on chronic HFpEF TTE 10/2018 with LVEF preserved, no wall motion abnormalities. started on lasix IV BID Strict I/O watch renal functions closely has required dialysis in the past - will consult nephrology fluid restriction, daily weights IMPRESSION: 1. Cardiomegaly with vascular congestion. 2. Right pleural effusion with associated atelectasis and/or infiltrate. 3. Left lower lobe atelectasis. (2) NSTEMI (non-ST elevated myocardial infarction) Current Visit: Yes Status: Acute Assessment and Plan: elevated troponin secondary to supply vs demand vs NSTEMI History of CAD status post stent. Telemetry serial troponin aspirin and Plavix statin beta katey nitrate. not on statins due to intolerance. was started on heparin drip on 01/10 cardiology on board - management as per cardiology TTE ordered will follow Echo 11/24/18 impressions: LVEF 60-65%. Mild left ventricular diastolic dysfunction. Normal right ventricular structure and function. No significant valvular dysfunction. No pulmonary hypertension. Left Ventricular Wall Motion: Rest Echo Findings All wall segments showed normal motion. (3) Pneumonia Current Visit: Yes Status: Acute Assessment and Plan: Possibility of hospital-acquired pneumonia as patient had recent hospitalization last month. Patient had productive shortness of breath, cough, chest x-ray abnormal. lactic acid negative continue with zosyn and doxycycline urine antigens sputum cx Duo-nebs oxygen via nasal cannula MRSA nasal swab Bipap if he develops respiratory distress. (4) Coronary artery disease Current Visit: No Status: Chronic Assessment and Plan: Status post stent. Troponins 0.25, 0.24, 0.26 in the setting of PNA, CHF, CKD. Reports atypical, pleuritic chest pain. No acute ischemic ECG changes. TTE 10/2018 with LVEF preserved, no wall motion abnormalities. On heparin drip, asa, BB. not on statins due to intolerance. will follow TTE. (5) CKD (chronic kidney disease) stage 3, GFR 30-59 ml/min Current Visit: Yes Status: Acute Assessment and Plan: Baseline creatinine 2.25. Avoid nephrotoxic drug. BMP monitoring while he is being diuresed nephrology consulted as he needed dialysis (6) CML (chronic myelocytic leukemia) Current Visit: Yes Status: Acute Assessment and Plan: Patient is on active treatment. Consulted oncology for further recommendation if needed. Patient follow [facility] see outpatient at cancer clinic. (7) Leucopenia Current Visit: Yes Status: Acute Assessment and Plan: Could be due to early sepsis as mentioned above or related with underlying cancer. currently resolved WBC count now 6.7 oncology recs appreciated continue with IV Abx as above (8) Diabetes mellitus Current Visit: Yes Status: Acute Assessment and Plan: Hemoglobin A1c 6.8 Accu-Chek, SSI medium. Diabetic diet. (9) Hypertension Current Visit: No Status: Chronic Assessment and Plan: continue home medications if not CI (10) DVT prophylaxis Current Visit: No Status: Acute Assessment and Plan: Heparin drip at present - Time Spent with Patient Total time spent is greater than 50% in coordination of care (as documented) at patient's floor/unit and/or counseling patient: Internal Medicine: Result - Labs CBC & Chem 7: 01/11/19 00:15 01/11/19 00:15 Labs: Short CBC 01/11/19 Range/Units 00:15 WBC 6.7 D (4.3-11.1) K/mcL Hgb 9.9 L (12.9-16.9) g/dL Hct 31.7 L (37.5-50.1) % Plt Count 143 (140-400) K/mcL Neutrophils # 5.9 (1.6-8.9) K/mcL BMP 01/11/19 00:15 Sodium 138 Potassium 4.6 Chloride 108 H Carbon Dioxide 19 L BUN 45 H Creatinine 2.52 H Glucose 220 H Calcium 8.2 L Cardiac Enzymes 01/10/19 01/10/19 Range/Units 12:14 18:19 Troponin I 0.24 H* 0.26 H* (< 0.04) ng/mL - ABG Interpretation ABG results: PT/INR, D-dimer PT 13.0 Seconds (9.4-12.1) H 01/10/19 12:14 Consult Discharge Plan - Plan [facility]errals: [facility] [Primary Care Provider] - (1) CHF (congestive heart failure) Qualifiers: Heart failure type: diastolic Heart failure chronicity: acute on chronic Qualified Code(s): I50.33 - Acute on chronic diastolic (congestive) heart failure (4) Coronary artery disease Qualifiers: Coronary Disease-Associated Artery/Lesion type: [place] artery [place] vs. transplanted heart: [place] heart Associated angina: without angina Qualified Code(s): I25.10 - Atherosclerotic heart disease of [place] coronary artery without angina pectoris (7) Leucopenia Qualifiers: Leukopenia type: neutropenia Neutropenia type: unspecified Qualified Code(s): D70.9 - Neutropenia, unspecified (8) Diabetes mellitus Qualifiers: Diabetes mellitus type: type 2 Diabetes mellitus senior living insulin use: with tank terminal gauger use Diabetes mellitus complication detail: with chronic kidney disease Chronic kidney disease stage: stage 3 (moderate) Qualified Code(s): E11.22 - Type 2 diabetes mellitus with diabetic chronic kidney disease; N18.3 - Chronic kidney disease, stage 3 (moderate); Z79.4 - watermaster (current) use of insulin (9) Hypertension Qualifiers: Hypertension type: essential hypertension Qualified Code(s): I10 - Essential (primary) hypertension
[2019-01-11] MEDS: Heparin 25,000 UNIT/250 ML D5W 25,000 UNIT/250 ML IV.SOLN IVC SCH (12:21)
[2019-01-11] MEDS ORDERED: Perflutren Lipid Microsphere 1.3 ML in 0.9 % Sodium Chloride 8.7 ML IVP ONE (18:07)
[2019-01-11] MEDS: Doxycycline 100 MG in 0.9 % Sodium Chloride Mini Bag 100 ML IVPB SCH (18:33)
[2019-01-11] MEDS: Pregabalin 75 MG CAPSULE PO SCH (19:51)
[2019-01-12] MEDS ORDERED: Piperacillin/Tazobactam 3.375 GM VIAL ONE (05:15)
[2019-01-12] MEDS ORDERED: 0.9 % Sodium Chloride Mini Bag 100 ML ONE (05:19)
[2019-01-12] MEDS: Doxycycline 100 MG in 0.9 % Sodium Chloride Mini Bag 100 ML IVPB SCH (05:29)
[2019-01-12] MEDS: Piperacillin/Tazobactam 3.375 GM in 0.9 % Sodium Chloride Mini Bag 100 ML IVPB SCH ×3 (05:33→21:10)
[2019-01-12 06:28] LABS: Hematocrit 29.7 % (37.5-50.1); Hemoglobin 9.5 g/dL (12.9-16.9); Mean Corpuscular Hemoglobin 31.7 pg (28.0-33.3); Mean Platelet Volume 11.8 fL (9.4-12.4); Platelet Count 115 K/mcL (140-400); Red Cell Distribution Width 18.4 % (11.5-14.5)
[2019-01-12 06:52] LABS: Calcium 7.9 mg/dL (8.6-10.3); Potassium 4.3 mEq/L (3.5-5.1)
[2019-01-12] MEDS: IMATINIB MESYLATE 200 MG PO SCH (08:33)
[2019-01-12] MEDS: Insulin LISPRO 300 UNITS/3 ML VIAL SQ SCH ×4 (08:40→21:20)
[2019-01-12] MEDS: Furosemide 40 MG/4 ML VIAL IVP SCH (08:46)
[2019-01-12] MEDS: Pregabalin 75 MG CAPSULE PO SCH ×2 (08:46→21:09)
[2019-01-12] MEDS: Cholecalciferol (D-3) 1,000 UNIT TABLET PO SCH (08:46)
[2019-01-12] MEDS: Aspirin Enteric Coated 81 MG Tablet PO SCH (08:47)
[2019-01-12] MEDS: Isosorbide MONOnitrate (24 HR) 30 MG TAB.ER.24H PO SCH (08:47)
[2019-01-12] MEDS: Topiramate 25 MG TABLET PO SCH (08:47)
[2019-01-12] MEDS: Heparin 25,000 UNIT/250 ML D5W 25,000 UNIT/250 ML IV.SOLN IVC SCH (08:48)
--- NOTE | 2019-01-12 09:35 | Nephrology Consult Note ---
Date of Encounter: 01/12/19 Time of Encounter: 09:33 Assessment and Plan (1) CKD (chronic kidney disease) stage 3, GFR 30-59 ml/min Current Visit: Yes Status: Acute Limited labs available-CKD stage 3-4 Difficult to determine if at/close to baseline due to limited labs available Good UOP 1775ml Continue Lasix with close monitoring of kidney function Avoid nephrotoxins if possible Strict I/Os (2) CML (chronic myelocytic leukemia) Current Visit: Yes Status: Acute per oncology team (3) NSTEMI (non-ST elevated myocardial infarction) Current Visit: Yes Status: Acute per cardiology team History of Present Illness - Reason for Consult Consult date: 01/12/19 - Chief Complaint CKD stage3-4, NSTEMI - History of Present Illness Mr. Aguilar is a 83 year old male with history of CAD status post 3 stent and last 1 2015 CHF, CKD, diabetes mellitus, CML following oncologists at [facility] and currently on treatment, COPD, hyperlipidemia, hypertension admitted from the [facility] with sudden onset of chest pain while resting. Patient was recently discharged from this hospital for renal failure and required 2 hemodialysis treatments and patient recovered. Past Med Surg Social Fam HX - Past Medical History Medical history: cancer, CHF, COPD, diabetes, hyperlipidemia, hypertension Psychiatric history: no psych history - Past Surgical History Additional surgical history: 3 stents placed - Social History Smoking Status: Former smoker Smokeless Tobacco Status: No Alcohol use: none Drug use: none Medications and Allergies Acetaminophen [Tylenol] 325 mg PO QID PRN 11/24/18 [History] Allopurinol [Zyloprim 100 MG] 200 mg PO DAILY 11/24/18 [History] Aspirin [Lo-Dose Aspirin EC] 81 mg PO DAILY 11/24/18 [History] Cholecalciferol (D-3) [Vitamin D] 4,000 unit PO DAILY 11/24/18 [History] Clobetasol Propionate 0.05% [Temovate] 1 appl TP BID PRN 11/24/18 [History] Clopidogrel [Plavix] 75 mg PO DAILY 11/24/18 [History] Docusate Sodium [Dulcolax Stool Softener] 100 mg PO BID 11/24/18 [History] Furosemide [Lasix] 10 mg PO DAILY 11/24/18 [History] Insulin Glargine,Hum.rec.anlog [Lantus Solostar] 42 unit SQ HS 11/24/18 [History] Isosorbide MONOnitrate (24 HR) [Imdur] 30 mg PO DAILY 11/24/18 [History] Loratadine [Allergy Relief] 10 mg PO DAILY PRN 11/24/18 [History] Nitroglycerin [Nitrostat] 0.4 mg SL Q5MIN PRN 11/24/18 [History] Omeprazole [PriLOSEC] 20 mg PO DAILY 11/24/18 [History] Pregabalin [Lyrica] 75 mg PO BID 11/24/18 [History] Wheat Dextrin [Benefiber] 1 each PO DAILY PRN 11/24/18 [History] amLODIPine [Norvasc] 10 mg PO DAILY 11/24/18 [History] Metoprolol [Lopressor] 12.5 mg PO BID #28 tablet 11/28/18 [Rx] Imatinib Mesylate [Gleevec] 200 mg PO DAILY 01/10/19 [History] Topiramate [Topamax] 25 mg PO DAILY 01/10/19 [History] Allergy/AdvReac Type Severity Reaction Status Date / Time pollen extracts Allergy Mild Congested Verified 11/24/18 14:10 tramadol Allergy See Verified 11/25/18 15:23 Comments alirocumab AdvReac See Verified 11/25/18 15:23 Comments ezetimibe [From Zetia] AdvReac See Verified 11/25/18 15:23 Comments fluvastatin AdvReac See Verified 11/25/18 15:23 Comments hydrochlorothiazide AdvReac See Verified 11/25/18 15:23 Comments isosorbide AdvReac See Verified 11/25/18 15:23 Comments lisinopril AdvReac See Verified 11/25/18 15:23 Comments pravastatin AdvReac See Verified 11/25/18 15:23 Comments propranolol AdvReac See Verified 11/25/18 15:23 Comments simvastatin AdvReac See Verified 11/25/18 15:23 Comments Review of Systems All Systems: reviewed and no additional remarkable complaints except as stated Constitutional: no fever(s) Cardiovascular: chest pain, chest pain at rest, dyspnea Respiratory: dyspnea on exertion Gastrointestinal: no vomiting Exam - Vital Signs Vital signs: Initial Vital Signs Temp Pulse Resp BP Pulse Ox 97.7 F 105 24 155/85 97 01/10/19 08:37 01/10/19 08:37 01/10/19 08:37 01/10/19 08:37 01/10/19 08:37 Vital Signs - Last 8 Hours Temp Pulse Resp BP Pulse Ox 01/12/19 07:28 97.6 F 81 24 159/73 95 01/12/19 04:06 97.6 F 79 18 158/68 95 Intake and Output 01/11/19 01/12/19 01/12/19 23:59 07:59 15:59 Intake Total 370 / 1670 100 / 340 240 / 340 Output Total 1175 / 1775 975 / 975 Balance -805 / -105 -875 / -635 240 / -635 Intake: IV Fluids 210 / 660 100 / 340 240 / 340 Heparin 25,000 UNIT/250 ML D5W 10 / 260 240 / 240 25,000 unit In 250 ml @ 8.7 UNIT/KG/HR 9.968 mls/hr IVC . Q24H MARII Rx#:[id number] Doxycycline 100 MG In 0.9 % 100 / 100 Sodium Chloride (Mini-Bag +) 100 ML @ 100 mls/hr IVPB Q12HR MARII Rx#:[id number] Zosyn 3.375 GM In 0.9 % Sodium 100 / 300 100 / 100 Chloride (Mini-Bag +) 100 ML @ 25 mls/hr IVPB Q8H MARII Rx#: [id number] Oral 160 / 1010 Output: Catheter 1175 / 1775 975 / 975 Other: Meal Dinner Percent of Meal Consumed 100% Weight 112.2 kg Blood Glucose* 147 103 Patient Weight 01/12/19 23:59 Weight 112.2 kg - General Appearance General appearance: well-developed, well-nourished EENT: ATNC, mucous membranes moist, hearing intact, vision intact Neck: supple Respiratory: clear Cardiology: no edema, normal S1, normal S2 Gastrointestinal: no tenderness, no guarding Integumentary: warm and dry Neurologic: alert and oriented x3 Psychiatric: mood/affect appropriate Results - Lab Results 01/12/19 06:05 01/12/19 06:05 Most recent lab results 01/12/19 06:05 Calcium 7.9 L Consult Discharge Plan - Plan [facility]errals: [facility] [Primary Care Provider] -
--- NOTE | 2019-01-12 12:38 | Event Note ---
Date of Encounter: 01/12/19 Time of Encounter: 12:36 - Cardiology Event Note Cardiology consulted for elevated troponins. Troponins mildly elevated, flat in the setting of pneumonia. Reported atypical, pleuritic chest pain. TTE with LVEF preserved, no wall motion abnormalities. Was being diuresed also. Currently net negative ~2L. Nephrology consulted for CKD IV. Appreciate nephrology recs regarding volume status. Cardiology will sign off. Will arrange outpatient follow up.
--- NOTE | 2019-01-12 13:53 | Internal Med Progress Note ---
Hospitalist Progress Note - Encounter Date of Encounter: 01/12/19 Time of Encounter: 09:00 - Subjective Interval History: patient was seen and examined at bedside. reports improvement in his SOB, denies fever or chills. has had no chest pain or cough. plan of care discussed with him and he is in agreement. tolerating PO diet - Exam Vitals: Temp Pulse Resp BP Pulse Ox 97.4 F L 74 22 151/67 96 01/12/19 11:03 01/12/19 11:03 01/12/19 11:03 01/12/19 11:03 01/12/19 11:03 Exam: General appearance: Mild respiratory distress. speaks in 5 word sentences, does become SOB while completing sentences. A&O X 3, obese Head exam: Atraumatic Eye exam: EOMI, PERRLA ENT exam: Moist oral mucosa Neck nontender, supple Respiratory exam: Bibasilar crackles, no wheezing Cardiovascular exam: Regular rate and rhythm, could not appreciate murmur Abdominal exam: Soft, nontender, nondistended, positive bowel sounds Extremities exam: No calf tenderness, +2 pedal edema Present Skin-no rash, warm, dry, intact Neurological exam: Alert, awake, oriented 3, nofocal deficit - Assessment and Plan (1) CHF (congestive heart failure) Current Visit: No Status: Chronic Assessment and Plan: acute on chronic HFpEF TTE 10/2018 with LVEF preserved, no wall motion abnormalities. started on lasix IV BID- currently negative 2L - will consider switching him to Po lasix in AM Strict I/O watch renal functions closely has required dialysis in the past - nephrology recs appreciated fluid restriction, daily weights IMPRESSION: 1. Cardiomegaly with vascular congestion. 2. Right pleural effusion with associated atelectasis and/or infiltrate. 3. Left lower lobe atelectasis. (2) Pneumonia Current Visit: Yes Status: Acute Assessment and Plan: Possibility of hospital-acquired pneumonia as patient had recent hospitalization last month. Patient had productive shortness of breath, cough, chest x-ray abnormal. lactic acid negative continue with zosyn urine antigens negative sputum cx pending- nursing staff aware. Duo-nebs oxygen via nasal cannula MRSA nasal swab - negative Bipap if he develops respiratory distress. willl obtain CT chest (3) NSTEMI (non-ST elevated myocardial infarction) Current Visit: Yes Status: Acute Assessment and Plan: elevated troponin secondary to supply vs demand vs NSTEMI History of CAD status post stent. Telemetry serial troponin aspirin and Plavix statin beta katey nitrate. not on statins due to intolerance. was started on heparin drip on 01/10- and was treated for 48hrs- cardiology on board and recommended medical management TTE with LVEF preserved, no wall motion abnormalities Echo 11/24/18 impressions: LVEF 60-65%. Mild left ventricular diastolic dysfunction. Normal right ventricular structure and function. No significant valvular dysfunction. No pulmonary hypertension. Left Ventricular Wall Motion: Rest Echo Findings All wall segments showed normal motion. (4) Coronary artery disease Current Visit: No Status: Chronic Assessment and Plan: Status post stent. Troponins 0.25, 0.24, 0.26 in the setting of PNA, CHF, CKD. Reports atypical, pleuritic chest pain. No acute ischemic ECG changes. TTE 10/2018 with LVEF preserved, no wall motion abnormalities. asa, plavix, BB, IMDUR not on statins due to intolerance. TTE with LVEF preserved, no wall motion abnormalities (5) CKD (chronic kidney disease) stage 3, GFR 30-59 ml/min Current Visit: Yes Status: Acute Assessment and Plan: Baseline creatinine 2.25. Limited labs available-CKD stage 3-4 Difficult to determine if at/close to baseline due to limited labs available Good UOP 1775ml Continue Lasix with close monitoring of kidney function Avoid nephrotoxic drug. BMP monitoring while he is being diuresed nephrology recs appreciated (6) CML (chronic myelocytic leukemia) Current Visit: Yes Status: Acute Assessment and Plan: Patient is on active treatment. oncology recs appreciated Patient follow [facility] outpatient at cancer clinic. (7) Leucopenia Current Visit: Yes Status: Resolved Assessment and Plan: Could be due to early sepsis as mentioned above or related with underlying cancer. currently resolved WBC count now 6.7 oncology recs appreciated "It should be okay to hold imatinib during the hospitalization and resume on discharge." continue with IV Abx as above . (8) Diabetes mellitus Current Visit: Yes Status: Acute Assessment and Plan: Hemoglobin A1c 6.8 Accu-Chek, SSI medium. Diabetic diet. (9) Hypertension Current Visit: No Status: Chronic Assessment and Plan: continue home medications if not CI (10) DVT prophylaxis Current Visit: No Status: Acute Assessment and Plan: Heparin sc - Time Spent with Patient Total time spent is greater than 50% in coordination of care (as documented) at patient's floor/unit and/or counseling patient: Internal Medicine: Result - Labs CBC & Chem 7: 01/12/19 06:05 01/12/19 06:05 Labs: Short CBC 01/12/19 Range/Units 06:05 WBC 5.2 (4.3-11.1) K/mcL Hgb 9.5 L (12.9-16.9) g/dL Hct 29.7 L (37.5-50.1) % Plt Count 115 L (140-400) K/mcL BMP 01/12/19 06:05 Sodium 140 Potassium 4.3 Chloride 109 H Carbon Dioxide 19 L BUN 58 H Creatinine 2.56 H Glucose 121 H Calcium 7.9 L - ABG Interpretation ABG results: PT/INR, D-dimer PT 13.0 Seconds (9.4-12.1) H 01/10/19 12:14 - Impressions Impressions Echocardiogram Limited Views 01/11/19 10:49 Impressions: LVEF 60%. Atypical septal motion consistent with bundle branch block. Normal LV chamber size, wall thickness and systolic function. Left Ventricular Wall Motion: Rest Echo Findings The mid inferior lateral wall was not visualized. All other wall segments showed normal motion. Findings: Study Quality * Technically sub-optimal due to poor echocardiographic windows. Left Ventricle * LVEF 60%. * Atypical septal motion consistent with bundle branch block. * Definity echo contrast was used. * Normal LV chamber size, wall thickness and systolic function. ECG Findings * Sinus rhythm with BBB. Consult Discharge Plan - Plan [facility]errals: [facility] [Primary Care Provider] - (1) CHF (congestive heart failure) Qualifiers: Heart failure type: diastolic Heart failure chronicity: acute on chronic Qualified Code(s): I50.33 - Acute on chronic diastolic (congestive) heart failure (4) Coronary artery disease Qualifiers: Coronary Disease-Associated Artery/Lesion type: [place] artery [place] vs. transplanted heart: [place] heart Associated angina: without angina Qualified Code(s): I25.10 - Atherosclerotic heart disease of [place] coronary artery without angina pectoris (7) Leucopenia Qualifiers: Leukopenia type: neutropenia Neutropenia type: unspecified Qualified Code(s): D70.9 - Neutropenia, unspecified (8) Diabetes mellitus Qualifiers: Diabetes mellitus type: type 2 Diabetes mellitus intermediate insulin use: with intermediate use Diabetes mellitus complication detail: with chronic kidney disease Chronic kidney disease stage: stage 3 (moderate) Qualified Code(s): E11.22 - Type 2 diabetes mellitus with diabetic chronic kidney disease; N18.3 - Chronic kidney disease, stage 3 (moderate); Z79.4 - nursing home (current) use of insulin (9) Hypertension Qualifiers: Hypertension type: essential hypertension Qualified Code(s): I10 - Essential (primary) hypertension
[2019-01-12] MEDS: *HR* Heparin 5,000 UNIT/ML VIAL SQ SCH ×2 (14:17→21:11)
--- NOTE | 2019-01-12 17:42 | Oncology Office Progress Note ---
Date of Service: 01/12/19 [facility] Provider[facility]: CML chronic phase. Reviewed records from [facility]. CBC on 10/13/2018 showed WBC count of 87,000 with hemoglobin 10.1 platelet count 1 77,000. 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 Apparently he is started on imatinib 4 mg daily. 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 Current CBC showed normal neutrophil counts 5900. Hemoglobin mildly reduced at 9 platelets 115 on 01/12/2090 2. Chronic kidney disease stage III to stage IV. Current creatinine 2.5 GFR 30. Reviewed the guidelines. For creatinine clearance 20-30 recommended dose is 50% of normal which he is on 3. Echocardiogram 01/11/2019 showed ejection fraction 60%. CT chest 01/12/2019 showed nodular opacity left lung ground glass opacities. Possible reactive mediastinal adenopathy. Review Of Systems Provider Comments:: 12 point review of systems performed with patient. All other systems are negative. - Medications and Allergies Home Medications: Acetaminophen [Tylenol] 325 mg PO QID PRN 11/24/18 [History] Allopurinol [Zyloprim 100 MG] 200 mg PO DAILY 11/24/18 [History] Aspirin [Lo-Dose Aspirin EC] 81 mg PO DAILY 11/24/18 [History] Cholecalciferol (D-3) [Vitamin D] 4,000 unit PO DAILY 11/24/18 [History] Clobetasol Propionate 0.05% [Temovate] 1 appl TP BID PRN 11/24/18 [History] Clopidogrel [Plavix] 75 mg PO DAILY 11/24/18 [History] Docusate Sodium [Dulcolax Stool Softener] 100 mg PO BID 11/24/18 [History] Furosemide [Lasix] 10 mg PO DAILY 11/24/18 [History] Insulin Glargine,Hum.rec.anlog [Lantus Solostar] 42 unit SQ HS 11/24/18 [History] Isosorbide MONOnitrate (24 HR) [Imdur] 30 mg PO DAILY 11/24/18 [History] Loratadine [Allergy Relief] 10 mg PO DAILY PRN 11/24/18 [History] Nitroglycerin [Nitrostat] 0.4 mg SL Q5MIN PRN 11/24/18 [History] Omeprazole [PriLOSEC] 20 mg PO DAILY 11/24/18 [History] Pregabalin [Lyrica] 75 mg PO BID 11/24/18 [History] Wheat Dextrin [Benefiber] 1 each PO DAILY PRN 11/24/18 [History] amLODIPine [Norvasc] 10 mg PO DAILY 11/24/18 [History] Metoprolol [Lopressor] 12.5 mg PO BID #28 tablet 11/28/18 [Rx] Imatinib Mesylate [Gleevec] 200 mg PO DAILY 01/10/19 [History] Topiramate [Topamax] 25 mg PO DAILY 01/10/19 [History] Allergies/Adverse Reactions: Allergy/AdvReac Type Severity Reaction Status Date / Time pollen extracts Allergy Mild Congested Verified 11/24/18 14:10 tramadol Allergy See Verified 11/25/18 15:23 Comments alirocumab AdvReac See Verified 11/25/18 15:23 Comments ezetimibe [From Zetia] AdvReac See Verified 11/25/18 15:23 Comments fluvastatin AdvReac See Verified 11/25/18 15:23 Comments hydrochlorothiazide AdvReac See Verified 11/25/18 15:23 Comments isosorbide AdvReac See Verified 11/25/18 15:23 Comments lisinopril AdvReac See Verified 11/25/18 15:23 Comments pravastatin AdvReac See Verified 11/25/18 15:23 Comments propranolol AdvReac See Verified 11/25/18 15:23 Comments simvastatin AdvReac See Verified 11/25/18 15:23 Comments Smoking Status: Former smoker Smokeless Tobacco Status: No Alcohol use: none Drug use: none Vital Signs Temperature 97.9 F 01/12/19 15:56 Temperature Source Oral 01/12/19 15:56 Pulse Rate 63 01/12/19 15:56 Pulse Rhythm Regular 01/12/19 07:51 Pulse Strength Normal 01/10/19 12:14 Respiratory Rate 22 01/12/19 15:56 Respiratory Effort Spontaneous 01/12/19 07:51 Respiratory Depth Normal 01/12/19 07:51 Respiratory Pattern 01/12/19 07:51 Blood Pressure 149/67 01/12/19 15:56 Blood Pressure Position HOB Elevated 01/12/19 15:56 Oxygen Delivery Method Nasal Cannula 01/12/19 15:56 Oxygen Flow Rate (LPM) 5 01/12/19 15:56 O2 Sat by Pulse Oximetry 94 01/12/19 15:56 Weight 112.2 kg Physical Exam: General: Alert and oriented, well appearing. Mental Status: Affect appropriate for circumstances HEENT: Sclerae anicteric. No mucositis or thrush. No other oral lesions or erythema. Skin: No rashes or petechiae. Lymph nodes: No cervical, supraclavicular, axillary, or inguinal adenopathy. Lungs: Clear to auscultation and percussion bilaterally. Cardiovascular: Regular rate and rhythm. No gallops, murmurs, or rubs. Abdomen: Soft, nontender; no organomegaly or masses palpable. Extremities: No edema. No calf swelling or tenderness. No joint deformity. Neurologic: Alert, cranial nerves II-XII intact; no focal weakness or sensory abnormalities. Labs: 01/12/19 01/12/19 01/11/19 06:05 06:05 18:00 WBC 5.2 RBC 3.00 L Hgb 9.5 L Hct 29.7 L MCV 99.0 MCH 31.7 MCHC 32.0 RDW 18.4 H Plt Count 115 L MPV 11.8 Immature Gran % Seg Neutrophils % Lymphocytes % Monocytes % Eosinophils % Basophils % Neutrophils # Lymphocytes # Monocytes # Eosinophils # Basophils # Platelet Estimate Smear Path Review PT INR Heparin Anti-Xa, Unfract Sodium 140 Potassium 4.3 Chloride 109 H Carbon Dioxide 19 L BUN 58 H Creatinine 2.56 H Est GFR ( Amer) 29 L Est GFR (Non-Af Amer) 24 L BUN/Creatinine Ratio 23 Glucose 121 H POC Glucose Est Mean Plasma Glucose Hemoglobin A1c Calculated Osmolality 307 H Lactic Acid Calcium 7.9 L Total Bilirubin AST ALT Alkaline Phosphatase Troponin I C-Reactive Protein B-Natriuretic Peptide Serum Total Protein Albumin Globulin Albumin/Globulin Ratio Triglycerides Cholesterol LDL Cholesterol, Calc VLDL Cholesterol, Calc HDL Cholesterol Cholesterol/HDL Ratio Nasal Screen MRSA (PCR) Negative 01/11/19 01/11/19 01/11/19 16:42 15:45 11:31 WBC RBC Hgb Hct MCV MCH MCHC RDW Plt Count MPV Immature Gran % Seg Neutrophils % Lymphocytes % Monocytes % Eosinophils % Basophils % Neutrophils # Lymphocytes # Monocytes # Eosinophils # Basophils # Platelet Estimate Smear Path Review PT INR Heparin Anti-Xa, Unfract 0.32 Sodium Potassium Chloride Carbon Dioxide BUN Creatinine Est GFR ( Amer) Est GFR (Non-Af Amer) BUN/Creatinine Ratio Glucose POC Glucose 199 H 212 H Est Mean Plasma Glucose Hemoglobin A1c Calculated Osmolality Lactic Acid Calcium Total Bilirubin AST ALT Alkaline Phosphatase Troponin I C-Reactive Protein B-Natriuretic Peptide Serum Total Protein Albumin Globulin Albumin/Globulin Ratio Triglycerides Cholesterol LDL Cholesterol, Calc VLDL Cholesterol, Calc HDL Cholesterol Cholesterol/HDL Ratio Nasal Screen MRSA (PCR) 01/11/19 01/11/19 01/11/19 08:45 07:10 00:15 WBC RBC Hgb Hct MCV MCH MCHC RDW Plt Count MPV Immature Gran % Seg Neutrophils % Lymphocytes % Monocytes % Eosinophils % Basophils % Neutrophils # Lymphocytes # Monocytes # Eosinophils # Basophils # Platelet Estimate Smear Path Review PT INR Heparin Anti-Xa, Unfract 0.36 0.27 L Sodium Potassium Chloride Carbon Dioxide BUN Creatinine Est GFR ( Amer) Est GFR (Non-Af Amer) BUN/Creatinine Ratio Glucose POC Glucose 167 H Est Mean Plasma Glucose Hemoglobin A1c Calculated Osmolality Lactic Acid Calcium Total Bilirubin AST ALT Alkaline Phosphatase Troponin I C-Reactive Protein B-Natriuretic Peptide Serum Total Protein Albumin Globulin Albumin/Globulin Ratio Triglycerides Cholesterol LDL Cholesterol, Calc VLDL Cholesterol, Calc HDL Cholesterol Cholesterol/HDL Ratio Nasal Screen MRSA (PCR) 01/11/19 01/11/19 01/11/19 00:15 00:15 00:15 WBC 6.7 D RBC 3.16 L Hgb 9.9 L Hct 31.7 L MCV 100.3 H MCH 31.3 MCHC 31.2 L RDW 18.5 H Plt Count 143 MPV 11.5 Immature Gran % 0.6 Seg Neutrophils % 88.7 Lymphocytes % 4.6 Monocytes % 6.1 Eosinophils % 0.0 Basophils % 0.0 Neutrophils # 5.9 Lymphocytes # 0.3 L Monocytes # 0.4 Eosinophils # 0.0 Basophils # 0.0 Platelet Estimate Smear Path Review See Below PT INR Heparin Anti-Xa, Unfract Sodium 138 Potassium 4.6 Chloride 108 H Carbon Dioxide 19 L BUN 45 H Creatinine 2.52 H Est GFR ( Amer) 30 L Est GFR (Non-Af Amer) 24 L BUN/Creatinine Ratio 18 Glucose 220 H POC Glucose Est Mean Plasma Glucose Hemoglobin A1c Calculated Osmolality 304 H Lactic Acid Calcium 8.2 L Total Bilirubin AST ALT Alkaline Phosphatase Troponin I C-Reactive Protein B-Natriuretic Peptide Serum Total Protein Albumin Globulin Albumin/Globulin Ratio Triglycerides 91 Cholesterol 154 LDL Cholesterol, Calc 83 VLDL Cholesterol, Calc 18 HDL Cholesterol 53 Cholesterol/HDL Ratio 2.9 Nasal Screen MRSA (PCR) 01/10/19 01/10/19 01/10/19 19:56 18:19 18:19 WBC RBC Hgb Hct MCV MCH MCHC RDW Plt Count MPV Immature Gran % Seg Neutrophils % Lymphocytes % Monocytes % Eosinophils % Basophils % Neutrophils # Lymphocytes # Monocytes # Eosinophils # Basophils # Platelet Estimate Smear Path Review PT INR Heparin Anti-Xa, Unfract 0.37 Sodium Potassium Chloride Carbon Dioxide BUN Creatinine Est GFR ( Amer) Est GFR (Non-Af Amer) BUN/Creatinine Ratio Glucose POC Glucose 209 H Est Mean Plasma Glucose Hemoglobin A1c Calculated Osmolality Lactic Acid Calcium Total Bilirubin AST ALT Alkaline Phosphatase Troponin I 0.26 H* C-Reactive Protein B-Natriuretic Peptide Serum Total Protein Albumin Globulin Albumin/Globulin Ratio Triglycerides Cholesterol LDL Cholesterol, Calc VLDL Cholesterol, Calc HDL Cholesterol Cholesterol/HDL Ratio Nasal Screen MRSA (PCR) 01/10/19 01/10/19 01/10/19 16:38 14:05 12:14 WBC RBC Hgb Hct MCV MCH MCHC RDW Plt Count MPV Immature Gran % Seg Neutrophils % Lymphocytes % Monocytes % Eosinophils % Basophils % Neutrophils # Lymphocytes # Monocytes # Eosinophils # Basophils # Platelet Estimate Smear Path Review PT INR Heparin Anti-Xa, Unfract Sodium Potassium Chloride Carbon Dioxide BUN Creatinine Est GFR ( Amer) Est GFR (Non-Af Amer) BUN/Creatinine Ratio Glucose POC Glucose 243 H 287 H Est Mean Plasma Glucose Hemoglobin A1c Calculated Osmolality Lactic Acid Calcium Total Bilirubin AST ALT Alkaline Phosphatase Troponin I 0.24 H* C-Reactive Protein B-Natriuretic Peptide Serum Total Protein Albumin Globulin Albumin/Globulin Ratio Triglycerides Cholesterol LDL Cholesterol, Calc VLDL Cholesterol, Calc HDL Cholesterol Cholesterol/HDL Ratio Nasal Screen MRSA (PCR) 01/10/19 01/10/19 01/10/19 12:14 09:42 09:42 WBC RBC Hgb Hct MCV MCH MCHC RDW Plt Count MPV Immature Gran % Seg Neutrophils % Lymphocytes % Monocytes % Eosinophils % Basophils % Neutrophils # Lymphocytes # Monocytes # Eosinophils # Basophils # Platelet Estimate Smear Path Review PT 13.0 H INR 1.2 Heparin Anti-Xa, Unfract 0.04 L Sodium Potassium Chloride Carbon Dioxide BUN Creatinine Est GFR ( Amer) Est GFR (Non-Af Amer) BUN/Creatinine Ratio Glucose POC Glucose Est Mean Plasma Glucose 148 Hemoglobin A1c 6.8 H Calculated Osmolality Lactic Acid Calcium Total Bilirubin AST ALT Alkaline Phosphatase Troponin I C-Reactive Protein 16 H B-Natriuretic Peptide Serum Total Protein Albumin Globulin Albumin/Globulin Ratio Triglycerides Cholesterol LDL Cholesterol, Calc VLDL Cholesterol, Calc HDL Cholesterol Cholesterol/HDL Ratio Nasal Screen MRSA (PCR) 01/10/19 01/10/19 01/10/19 09:42 09:42 09:42 WBC RBC Hgb Hct MCV MCH MCHC RDW Plt Count MPV Immature Gran % Seg Neutrophils % Lymphocytes % Monocytes % Eosinophils % Basophils % Neutrophils # Lymphocytes # Monocytes # Eosinophils # Basophils # Platelet Estimate Smear Path Review PT 12.9 H INR 1.1 Heparin Anti-Xa, Unfract Sodium Potassium Chloride Carbon Dioxide BUN Creatinine Est GFR ( Amer) Est GFR (Non-Af Amer) BUN/Creatinine Ratio Glucose POC Glucose Est Mean Plasma Glucose Hemoglobin A1c Calculated Osmolality Lactic Acid 1.3 Calcium Total Bilirubin AST ALT Alkaline Phosphatase Troponin I C-Reactive Protein B-Natriuretic Peptide 268 H Serum Total Protein Albumin Globulin Albumin/Globulin Ratio Triglycerides Cholesterol LDL Cholesterol, Calc VLDL Cholesterol, Calc HDL Cholesterol Cholesterol/HDL Ratio Nasal Screen MRSA (PCR) 01/10/19 01/10/19 09:42 09:42 WBC 4.0 L RBC 2.98 L Hgb 9.4 L Hct 29.5 L MCV 99.0 MCH 31.5 MCHC 31.9 RDW 18.1 H Plt Count 118 L MPV 11.5 Immature Gran % 0.5 Seg Neutrophils % 93.2 Lymphocytes % 4.8 Monocytes % 1.5 Eosinophils % 0.0 Basophils % 0.0 Neutrophils # 3.7 Lymphocytes # 0.2 L Monocytes # 0.1 Eosinophils # 0.0 Basophils # 0.0 Platelet Estimate Slight Decrease L Smear Path Review PT INR Heparin Anti-Xa, Unfract Sodium 138 Potassium 4.1 Chloride 110 H Carbon Dioxide 19 L BUN 33 H Creatinine 2.05 H Est GFR ( Amer) 38 L Est GFR (Non-Af Amer) 31 L BUN/Creatinine Ratio 16 Glucose 217 H POC Glucose Est Mean Plasma Glucose Hemoglobin A1c Calculated Osmolality 300 Lactic Acid Calcium 8.1 L Total Bilirubin 0.3 AST 17 ALT 14 Alkaline Phosphatase 119 H Troponin I 0.25 H* C-Reactive Protein B-Natriuretic Peptide Serum Total Protein 6.8 Albumin 3.8 Globulin 3.0 Albumin/Globulin Ratio 1.3 Triglycerides Cholesterol LDL Cholesterol, Calc VLDL Cholesterol, Calc HDL Cholesterol Cholesterol/HDL Ratio Nasal Screen MRSA (PCR)
--- NOTE | 2019-01-12 17:46 | Oncology Inp Progress Note ---
Date of Encounter: 01/12/19 Time of Encounter: 17:44 (1) CML (chronic myelocytic leukemia) Current Visit: Yes Status: Acute Assessment and plan: 1. CML chronic phase. Diagnosis September 2018 with elevated WBC count of 87,000. He had excellent response to imatinib. Currently on 100 mg twice a day which is the right dosing for chronic kidney disease GFR 30 2. Bilateral lower extremity edema 1-2+. Ejection fraction 60%. Some of the swelling could be from imatinib. His imatinib is on hold. Recommend imatinib on discharge at 100 mg twice a day. Further dose adjustment for his oncology Dr. Simone WOODARD at [facility] 3. Pneumonia getting antibiotics Oncology: Subj Interval history: CML chronic phase. Reviewed records from [facility]. CBC on 10/13/2018 showed WBC count of 87,000 with hemoglobin 10.1 platelet count 1 77,000. 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 Apparently he is started on imatinib 4 mg daily. 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 Current CBC showed normal neutrophil counts 5900. Hemoglobin mildly reduced at 9 platelets 115 on 01/12/2090 2. Chronic kidney disease stage III to stage IV. Current creatinine 2.5 GFR 30. Reviewed the guidelines. For creatinine clearance 20-30 recommended dose is 50% of normal which he is on 3. Echocardiogram 01/11/2019 showed ejection fraction 60%. CT chest 01/12/2019 showed nodular opacity left lung ground glass opacities. Possible reactive mediastinal adenopathy. - Constitutional Exam: GENERAL: I. Deconditioning s more alert than admission Mental Status: Affect appropriate for circumstances HEENT: Sclerae anicteric. No mucositis or thrush. No other oral or pharyngeal lesions or erythema. Skin: No rashes or petechiae. No evidence of skin malignancy Lymph nodes: No cervical, supraclavicular, axillary, or inguinal adenopathy. Lungs: Air entry decreased at bases Cardiovascular: Regular rate and rhythm. No skipped beats Abdomen: Soft, nontender; no organomegaly or masses palpable. Extremities: No edema. No calf swelling or tenderness. No joint deformity. Neurologic: Alert, cranial nerves II-XII intact; normal gait; no focal weakness or sensory abnormalities Oncology: Obj Data - Labs CBC & Chem 7: 01/13/19 05:54 01/13/19 05:54 Consult Discharge Plan - Plan [facility]errals: [facility] [Primary Care Provider[facility] - Inpatient Charges Provider: Dr. Reena Nava Follow up - Inpatient: [id number]
[2019-01-12] MEDS ORDERED: Doxycycline 100 MG CAPSULE PO SCH (21:00)
[2019-01-13] MEDS: Piperacillin/Tazobactam 3.375 GM in 0.9 % Sodium Chloride Mini Bag 100 ML IVPB SCH ×3 (05:42→22:05)
[2019-01-13] MEDS: *HR* Heparin 5,000 UNIT/ML VIAL SQ SCH ×3 (05:42→22:04)
[2019-01-13 07:01] LABS: Hematocrit 33.8 % (37.5-50.1); Hemoglobin 10.7 g/dL (12.9-16.9); Mean Corpuscular HGB Conc 31.7 g/dL (31.6-35.5); Mean Corpuscular Hemoglobin 31.2 pg (28.0-33.3); Mean Corpuscular Volume 98.5 fL (83.0-100.0); Mean Platelet Volume 12.2 fL (9.4-12.4); Platelet Count 119 K/mcL (140-400); Red Blood Count 3.43 M/mcL (4.19-5.50); Red Cell Distribution Width 18.1 % (11.5-14.5)
[2019-01-13 07:19] LABS: Calcium 8.4 mg/dL (8.6-10.3); Potassium 4.6 mEq/L (3.5-5.1)
[2019-01-13] MEDS ORDERED: Furosemide 40 MG/4 ML VIAL IVP SCH (08:00)
[2019-01-13] MEDS: Insulin LISPRO 300 UNITS/3 ML VIAL SQ SCH ×4 (09:15→22:04)
[2019-01-13] MEDS: Pregabalin 75 MG CAPSULE PO SCH ×2 (09:24→22:04)
[2019-01-13] MEDS: Aspirin Enteric Coated 81 MG Tablet PO SCH (09:24)
[2019-01-13] MEDS: Topiramate 25 MG TABLET PO SCH (09:24)
[2019-01-13] MEDS: Isosorbide MONOnitrate (24 HR) 30 MG TAB.ER.24H PO SCH (09:24)
[2019-01-13] MEDS: Cholecalciferol (D-3) 1,000 UNIT TABLET PO SCH (09:24)
--- NOTE | 2019-01-13 11:29 | Nephrology Progress Note ---
Date of Encounter: 01/13/19 Time of Encounter: 09:50 - Assessment and Plan (1) CKD (chronic kidney disease) stage 3, GFR 30-59 ml/min Current Visit: Yes Status: Acute Stable renal function. Continue to follow a renal protective strategy. 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 Eng in [place], [place], on 02/05/2019. Continue Lasix with close monitoring of kidney function Avoid nephrotoxins if possible Strict I/Os With stable renal function, I will sign off at this point. No indications for dialysis. Please feel free to call or page me with any nephrology questions. (2) NSTEMI (non-ST elevated myocardial infarction) Current Visit: Yes Status: Acute per cardiology team (3) CML (chronic myelocytic leukemia) Current Visit: Yes Status: Acute per oncology team Subjective Principal diagnosis: CKD Interval history: The patient was seen and examined, and he did not affirm nausea, vomiting, diarrhea. Objective - Vital Signs Vital signs: Vital Signs Temp Pulse Resp BP Pulse Ox 01/13/19 08:07 97.9 F 75 19 168/65 96 01/13/19 04:05 97.9 F 67 17 145/58 95 01/12/19 23:48 98 F 76 17 152/63 90 01/12/19 19:38 97.9 F 76 17 147/58 95 01/12/19 15:56 97.9 F 63 22 149/67 94 Intake and Output 01/12/19 01/13/19 01/13/19 23:59 07:59 15:59 Intake Total 100 / 1310 100 / 580 480 / 580 Output Total 2200 / 3175 700 / 1475 775 / 1475 Balance -2100 / -1865 -600 / -895 -295 / -895 Intake: IV Fluids 100 / 830 100 / 100 Zosyn 3.375 GM In 0.9 % Sodium 100 / 300 100 / 100 Chloride (Mini-Bag +) 100 ML @ 25 mls/hr IVPB Q8H [facility] Rx#: [id number] Oral 480 / 480 Output: Catheter 2200 / 3175 700 / 1475 775 / 1475 Urethral (Holguin) 775 / 775 Other: Meal Breakfast Percent of Meal Consumed 100% Stool Size Large Stool Consistency liquid # Bowel Movements 2 Weight 112.3 kg Blood Glucose* 164 131 - General Appearance General appearance: Present: well-developed, well-nourished, appears started age, obese EENT: Present: ATNC, PERRL, mucous membranes moist Neck: Present: supple Respiratory: Present: clear Cardiology: Present: edema (trace pretibial pitting edema bilaterally), regular rate, regular rhythm, normal S1, normal S2 Gastrointestinal: Present: normoactive bowel sounds, no tenderness, no guarding Integumentary: Present: warm and dry Neurologic: Present: no focal deficit, no asterixis, alert and oriented x3 Musculoskeletal: Present: no deformities, no erythema Psychiatric: Present: mood/affect appropriate, cooperative - Lab 01/14/19 04:44 01/14/19 04:44 Most recent lab results 01/13/19 05:54 Calcium 8.4 L Consult Discharge Plan - Plan [facility]errals: [facility] [Primary Care Provider] -
--- NOTE | 2019-01-13 13:40 | Internal Med History&Physical ---
Date of Encounter: 01/13/19 Time of Encounter: 09:00 Internal Medicine - H&P: HPI History of present illness: Mr. Aguilar is a 83 year old male Past Med Surg Social Fam HX - Past Medical History Medical history: cancer, CHF, COPD, diabetes, hyperlipidemia, hypertension Psychiatric history: no psych history - Past Surgical History Additional surgical history: 3 stents placed - Social History Smoking Status: Former smoker Smokeless Tobacco Status: No Alcohol use: none Drug use: none Internal Medicine - H&P: Meds Acetaminophen [Tylenol] 325 mg PO QID PRN 11/24/18 [History] Allopurinol [Zyloprim 100 MG] 200 mg PO DAILY 11/24/18 [History] Aspirin [Lo-Dose Aspirin EC] 81 mg PO DAILY 11/24/18 [History] Cholecalciferol (D-3) [Vitamin D] 4,000 unit PO DAILY 11/24/18 [History] Clobetasol Propionate 0.05% [Temovate] 1 appl TP BID PRN 11/24/18 [History] Clopidogrel [Plavix] 75 mg PO DAILY 11/24/18 [History] Docusate Sodium [Dulcolax Stool Softener] 100 mg PO BID 11/24/18 [History] Furosemide [Lasix] 10 mg PO DAILY 11/24/18 [History] Insulin Glargine,Hum.rec.anlog [Lantus Solostar] 42 unit SQ HS 11/24/18 [ History] Isosorbide MONOnitrate (24 HR) [Imdur] 30 mg PO DAILY 11/24/18 [History] Loratadine [Allergy Relief] 10 mg PO DAILY PRN 11/24/18 [History] Nitroglycerin [Nitrostat] 0.4 mg SL Q5MIN PRN 11/24/18 [History] Omeprazole [PriLOSEC] 20 mg PO DAILY 11/24/18 [History] Pregabalin [Lyrica] 75 mg PO BID 11/24/18 [History] Wheat Dextrin [Benefiber] 1 each PO DAILY PRN 11/24/18 [History] amLODIPine [Norvasc] 10 mg PO DAILY 11/24/18 [History] Metoprolol [Lopressor] 12.5 mg PO BID #28 tablet 11/28/18 [Rx] Imatinib Mesylate [Gleevec] 200 mg PO DAILY 01/10/19 [History] Topiramate [Topamax] 25 mg PO DAILY 01/10/19 [History] Allergy/AdvReac Type Severity Reaction Status Date / Time pollen extracts Allergy Mild Congested Verified 11/24/18 14:10 tramadol Allergy See Verified 11/25/18 15:23 Comments alirocumab AdvReac See Verified 11/25/18 15:23 Comments ezetimibe [From Zetia] AdvReac See Verified 11/25/18 15:23 Comments fluvastatin AdvReac See Verified 11/25/18 15:23 Comments hydrochlorothiazide AdvReac See Verified 11/25/18 15:23 Comments isosorbide AdvReac See Verified 11/25/18 15:23 Comments lisinopril AdvReac See Verified 11/25/18 15:23 Comments pravastatin AdvReac See Verified 11/25/18 15:23 Comments propranolol AdvReac See Verified 11/25/18 15:23 Comments simvastatin AdvReac See Verified 11/25/18 15:23 Comments All Systems PM: A 10-system review of systems was performed and is negative for pertinent findings except as documented above in the HPI. - Constitutional Vitals: Temp Pulse Resp BP Pulse Ox 97.8 F 74 20 160/72 97 01/13/19 11:39 01/13/19 11:39 01/13/19 11:39 01/13/19 11:39 01/13/19 11:39 Internal Med - H&P Results - Labs CBC & Chem 7: 01/13/19 05:54 01/13/19 05:54 Labs: Short CBC 01/13/19 Range/Units 05:54 WBC 4.6 (4.3-11.1) K/mcL Hgb 10.7 L (12.9-16.9) g/dL Hct 33.8 L (37.5-50.1) % Plt Count 119 L (140-400) K/mcL BMP 01/13/19 05:54 Sodium 143 Potassium 4.6 Chloride 110 H Carbon Dioxide 23 BUN 53 H Creatinine 2.47 H Glucose 146 H Calcium 8.4 L - Impressions ITS Impressions Chest X-Ray 01/10/19 08:42 IMPRESSION: 1. Cardiomegaly with vascular congestion. 2. Right pleural effusion with associated atelectasis and/or infiltrate. 3. Left lower lobe atelectasis. D/ / Ricki Damon MD / Ricki Damon MD Interpreting Provider: Ricki Damon MD Echocardiogram Limited Views 01/11/19 10:49 Impressions: LVEF 60%. Atypical septal motion consistent with bundle branch block. Normal LV chamber size, wall thickness and systolic function. Left Ventricular Wall Motion: Rest Echo Findings The mid inferior lateral wall was not visualized. All other wall segments showed normal motion. Findings: Study Quality * Technically sub-optimal due to poor echocardiographic windows. Left Ventricle * LVEF 60%. * Atypical septal motion consistent with bundle branch block. * Definity echo contrast was used. * Normal LV chamber size, wall thickness and systolic function. ECG Findings * Sinus rhythm with BBB. Chest CT 01/12/19 15:00 IMPRESSION: 1. Moderate bilateral pleural effusions with adjacent passive atelectasis of the lower lobes. Superimposed infection is not excluded. There is also high-density material within the atelectatic right lower lobe which may be related to prior aspiration of enteric contrast. 2. Few nodular opacities predominately within the left lower lobe the largest of which measures up to 9 mm. These may be infectious or inflammatory in etiology and recommend follow-up to exclude neoplasm. 3. Mild mediastinal adenopathy, likely reactive. 4. There are subtle areas of ground-glass attenuation as well as interlobular septal thickening suggestive of mild edema. Recommend correlation with any history of congestive heart failure. These also may be infectious or inflammatory in etiology given other findings. RECOMMENDATIONS: Multiple pulmonary nodules. Most severe: 9.0 mm ground glass pulmonary nodule. Recommend a non-contrast Chest CT at 3-6 months. Subsequent management based on the most suspicious nodule(s). These guidelines do not apply to patients younger than 35 years, immunocompromised patients, and patients with cancer. Follow up in patients with significant comorbidities as clinically warranted. For lung cancer screening, adhere to Lung-RADS guidelines. Reference: Radiology. 2017; 284(1):228-43. D/ / 01/12/2019 15:59:30 Courtney Hernandez MD / jose luis Interpreting Provider: Courtney Hernandez MD - Assessment and Plan (1) CHF (congestive heart failure) Current Visit: No Status: Chronic Assessment and plan: acute on chronic HFpEF CT chest with pulmonary TTE 10/2018 with LVEF preserved, no wall motion abnormalities. started on lasix IV BID- currently negative 4L since admission- will consider switching him o PO lasix in AM Strict I/O watch renal functions closely has required dialysis in the past - nephrology recs appreciated fluid restriction, daily weights CT chest: Moderate bilateral pleural effusions with adjacent passive atelectasis of the lower lobes. Superimposed infection is not excluded. There is also high-density material within the atelectatic right lower lobe which may be related to prior aspiration of enteric contrast. 2. Few nodular opacities predominately within the left lower lobe the largest of which measures up to 9 mm. These may be infectious or inflammatory in etiology and recommend follow-up to exclude neoplasm. 3. Mild mediastinal adenopathy, likely reactive. 4. There are subtle areas of ground-glass attenuation as well as interlobular septal thickening suggestive of mild edema. Recommend correlation with any history of congestive heart failure. These also may be infectious or inflammatory in etiology given other findings. IMPRESSION: 1. Cardiomegaly with vascular congestion. 2. Right pleural effusion with associated atelectasis and/or infiltrate. 3. Left lower lobe atelectasis. Qualifiers: Heart failure type: diastolic Heart failure chronicity: acute on chronic Qualified Code(s): I50.33 - Acute on chronic diastolic (congestive) heart failure (2) Pneumonia Current Visit: Yes Status: Acute Assessment and plan: Possibility of hospital-acquired pneumonia as patient had recent hospitalization last month. Patient had productive shortness of breath, cough, chest x-ray abnormal. lactic acid negative continue with zosyn urine antigens negative sputum cx pending- nursing staff aware. Duo-nebs oxygen via nasal cannula MRSA nasal swab - negative Bipap if he develops respiratory distress. Ct chest: 1. Moderate bilateral pleural effusions with adjacent passive atelectasis of the lower lobes. Superimposed infection is not excluded. There is also high-density material within the atelectatic right lower lobe which may be related to prior aspiration of enteric contrast. 2. Few nodular opacities predominately within the left lower lobe the largest of which measures up to 9 mm. These may be infectious or inflammatory in etiology and recommend follow-up to exclude neoplasm. 3. Mild mediastinal adenopathy, likely reactive. 4. There are subtle areas of ground-glass attenuation as well as interlobular septal thickening suggestive of mild edema. Recommend correlation with any history of congestive heart failure. These also may be infectious or inflammatory in etiology given other findings. (3) Sepsis Current Visit: Yes Status: Acute Assessment and plan: secondary to above leukopenia and tachycardia on admission Qualifiers: Sepsis type: sepsis due to unspecified organism Qualified Code(s): A41.9 - Sepsis, unspecified organism (4) Bilateral pleural effusion Current Visit: Yes Status: Acute Assessment and plan: CT with Moderate bilateral pleural effusions with adjacent passive atelectasis of the lower lobes. Superimposed infection is not excluded. There is also high-density material within the atelectatic right lower lobe which may be related to prior aspiration of enteric contrast. IR consulted despite diuretic therapy and negative 4 L out put he continues to have pleural effusion. will follow thoracocentesis studies. (5) NSTEMI (non-ST elevated myocardial infarction) Current Visit: Yes Status: Acute Assessment and plan: elevated troponin secondary to supply vs demand vs NSTEMI History of CAD status post stent. Telemetry serial troponin aspirin and Plavix statin beta katey nitrate. not on statins due to intolerance. was started on heparin drip on 01/10- and was treated for 48hrs- cardiology on board and recommended medical management TTE with LVEF preserved, no wall motion abnormalities Echo 11/24/18 impressions: LVEF 60-65%. Mild left ventricular diastolic dysfunction. Normal right ventricular structure and function. No significant valvular dysfunction. No pulmonary hypertension. Left Ventricular Wall Motion: Rest Echo Findings All wall segments showed normal motion. (6) Coronary artery disease Current Visit: No Status: Chronic Assessment and plan: Status post stent. Troponins 0.25, 0.24, 0.26 in the setting of PNA, CHF, CKD. Reports atypical, pleuritic chest pain. No acute ischemic ECG changes. TTE 10/2018 with LVEF preserved, no wall motion abnormalities. asa, plavix, BB, IMDUR not on statins due to intolerance. TTE with LVEF preserved, no wall motion abnormalities Qualifiers: Coronary Disease-Associated Artery/Lesion type: [place] artery [place] vs. transplanted heart: [place] heart Associated angina: without angina Qualified Code(s): I25.10 - Atherosclerotic heart disease of [place] coronary artery without angina pectoris (7) CKD (chronic kidney disease) stage 3, GFR 30-59 ml/min Current Visit: Yes Status: Acute Assessment and plan: Baseline creatinine 2.25. Limited labs available-CKD stage 3-4 Difficult to determine if at/close to baseline due to limited labs available Good UOP 1775ml Continue Lasix with close monitoring of kidney function Avoid nephrotoxic drug. BMP monitoring while he is being diuresed nephrology recs appreciated (8) CML (chronic myelocytic leukemia) Current Visit: Yes Status: Acute Assessment and plan: Patient is on active treatment. oncology recs appreciated Patient follow [facility] outpatient at cancer clinic. (9) Leucopenia Current Visit: Yes Status: Resolved Assessment and plan: Could be due to early sepsis as mentioned above or related with underlying cancer. currently resolved WBC count now 6.7 oncology recs appreciated "It should be okay to hold imatinib during the hospitalization and resume on discharge." continue with IV Abx as above Qualifiers: Leukopenia type: neutropenia Neutropenia type: unspecified Qualified Code(s): D70.9 - Neutropenia, unspecified (10) Diabetes mellitus Current Visit: Yes Status: Acute Assessment and plan: Hemoglobin A1c 6.8 Accu-Chek, SSI medium. Diabetic diet. Qualifiers: Diabetes mellitus type: type 2 Diabetes mellitus usp insulin use: with usp use Diabetes mellitus complication detail: with chronic kidney disease Chronic kidney disease stage: stage 3 (moderate) Qualified Code(s): E11.22 - Type 2 diabetes mellitus with diabetic chronic kidney disease; N18.3 - Chronic kidney disease, stage 3 (moderate); Z79.4 - correction (current) use of insulin (11) Hypertension Current Visit: No Status: Chronic Assessment and plan: continue home medications if not CI Qualifiers: Hypertension type: essential hypertension Qualified Code(s): I10 - Essential (primary) hypertension (12) Lung nodule Current Visit: Yes Status: Acute Assessment and plan: . Most severe: 9.0 mm ground glass pulmonary nodule. Recommend a non-contrast Chest CT at 3-6 months. (13) DVT prophylaxis Current Visit: No Status: Acute Assessment and plan: Heparin sc - Time Spent With Patient Total time spent is greater than 50% in coordination of care (as documented) at patient's floor/unit and/or counseling patient:
--- NOTE | 2019-01-13 13:49 | Internal Med Progress Note ---
Hospitalist Progress Note - Encounter Date of Encounter: 01/13/19 Time of Encounter: 09:00 - Subjective Interval History: patient was seen and eamiend at bedside continue to be SOB. i discussed Ct findings with the patient. he denies CP or palpitations. All questions answered. he reports that his LE edema has improved. tolerating PO diet. - Exam Vitals: Temp Pulse Resp BP Pulse Ox 97.8 F 74 20 160/72 97 01/13/19 11:39 01/13/19 11:39 01/13/19 11:39 01/13/19 11:39 01/13/19 11:39 Exam: General appearance: Mild respiratory distress. speaks in 5 word sentences, A&O X 3, obese Head exam: Atraumatic Eye exam: EOMI, PERRLA ENT exam: Moist oral mucosa Neck nontender, supple Respiratory exam: tachypnic, Bibasilar crackles, no wheezing Cardiovascular exam: Regular rate and rhythm, could not appreciate murmur Abdominal exam: Soft, nontender, nondistended, positive bowel sounds Extremities exam: No calf tenderness, trace edema Present Skin-no rash, warm, dry, intact Neurological exam: Alert, awake, oriented 3, nofocal deficit - Assessment and Plan (1) CHF (congestive heart failure) Current Visit: No Status: Chronic Assessment and Plan: acute on chronic HFpEF CT chest with pulmonary TTE 10/2018 with LVEF preserved, no wall motion abnormalities. started on lasix IV BID- currently negative 4L since admission- will consider switching him o PO lasix in AM Strict I/O watch renal functions closely has required dialysis in the past - nephrology recs appreciated fluid restriction, daily weights CT chest: Moderate bilateral pleural effusions with adjacent passive atelectasis of the lower lobes. Superimposed infection is not excluded. There is also high-density material within the atelectatic right lower lobe which may be related to prior aspiration of enteric contrast. 2. Few nodular opacities predominately within the left lower lobe the largest of which measures up to 9 mm. These may be infectious or inflammatory in etiology and recommend follow-up to exclude neoplasm. 3. Mild mediastinal adenopathy, likely reactive. 4. There are subtle areas of ground-glass attenuation as well as interlobular septal thickening suggestive of mild edema. Recommend correlation with any history of congestive heart failure. These also may be infectious or inflammatory in etiology given other findings. IMPRESSION: 1. Cardiomegaly with vascular congestion. 2. Right pleural effusion with associated atelectasis and/or infiltrate. 3. Left lower lobe atelectasis. (2) Pneumonia Current Visit: Yes Status: Acute Assessment and Plan: Possibility of hospital-acquired pneumonia as patient had recent hospitalization last month vs aspiration. Patient had productive shortness of breath, cough, chest x-ray abnormal. lactic acid negative continue with zosyn urine antigens negative sputum cx pending- nursing staff aware. Duo-nebs oxygen via nasal cannula MRSA nasal swab - negative Bipap if he develops respiratory distress. Ct chest: 1. Moderate bilateral pleural effusions with adjacent passive atelectasis of the lower lobes. Superimposed infection is not excluded. There is also high-density material within the atelectatic right lower lobe which may be related to prior aspiration of enteric contrast. 2. Few nodular opacities predominately within the left lower lobe the largest of which measures up to 9 mm. These may be infectious or inflammatory in etiology and recommend follow-up to exclude neoplasm. 3. Mild mediastinal adenopathy, likely reactive. 4. There are subtle areas of ground-glass attenuation as well as interlobular septal thickening suggestive of mild edema. Recommend correlation with any history of congestive heart failure. These also may be infectious or inflammatory in etiology given other findings. (3) Sepsis Current Visit: Yes Status: Acute Assessment and Plan: secondary to above leukopenia and tachycardia on admission (4) Bilateral pleural effusion Current Visit: Yes Status: Acute Assessment and Plan: CT with Moderate bilateral pleural effusions with adjacent passive atelectasis of the lower lobes. Superimposed infection is not excluded. There is also high-density material within the atelectatic right lower lobe which may be related to prior aspiration of enteric contrast. IR consulted despite diuretic therapy and negative 4 L out put he continues to have pleural effusion. will follow thoracocentesis studies. (5) NSTEMI (non-ST elevated myocardial infarction) Current Visit: Yes Status: Acute Assessment and Plan: elevated troponin secondary to supply vs demand vs NSTEMI History of CAD status post stent. Telemetry serial troponin aspirin and Plavix statin beta katey nitrate. not on statins due to intolerance. was started on heparin drip on 01/10- and was treated for 48hrs- cardiology on board and recommended medical management TTE with LVEF preserved, no wall motion abnormalities Echo 11/24/18 impressions: LVEF 60-65%. Mild left ventricular diastolic dysfunction. Normal right ventricular structure and function. No significant valvular dysfunction. No pulmonary hypertension. Left Ventricular Wall Motion: Rest Echo Findings All wall segments showed normal motion. (6) Coronary artery disease Current Visit: No Status: Chronic Assessment and Plan: Status post stent. Troponins 0.25, 0.24, 0.26 in the setting of PNA, CHF, CKD. Reports atypical, pleuritic chest pain. No acute ischemic ECG changes. TTE 10/2018 with LVEF preserved, no wall motion abnormalities. asa, plavix, BB, IMDUR not on statins due to intolerance. TTE with LVEF preserved, no wall motion abnormalities (7) CKD (chronic kidney disease) stage 3, GFR 30-59 ml/min Current Visit: Yes Status: Acute Assessment and Plan: Baseline creatinine 2.25. Limited labs available-CKD stage 3-4 Difficult to determine if at/close to baseline due to limited labs available Good UOP 1775ml Continue Lasix with close monitoring of kidney function Avoid nephrotoxic drug. BMP monitoring while he is being diuresed nephrology recs appreciated (8) CML (chronic myelocytic leukemia) Current Visit: Yes Status: Acute Assessment and Plan: Patient is on active treatment. oncology recs appreciated Patient follow [facility] outpatient at cancer clinic. (9) Leucopenia Current Visit: Yes Status: Resolved Assessment and Plan: Could be due to early sepsis as mentioned above or related with underlying cancer. currently resolved WBC count now 6.7 oncology recs appreciated "It should be okay to hold imatinib during the hospitalization and resume on discharge." continue with IV Abx as above (10) Diabetes mellitus Current Visit: Yes Status: Acute Assessment and Plan: Hemoglobin A1c 6.8 Accu-Chek, SSI medium. Diabetic diet. (11) Hypertension Current Visit: No Status: Chronic Assessment and Plan: continue home medications if not CI (12) Lung nodule Current Visit: Yes Status: Acute Assessment and Plan: . Most severe: 9.0 mm ground glass pulmonary nodule. Recommend a non-contrast Chest CT at 3-6 months. (13) DVT prophylaxis Current Visit: No Status: Acute Assessment and Plan: heparin sc - Time Spent with Patient Total time spent is greater than 50% in coordination of care (as documented) at patient's floor/unit and/or counseling patient: Internal Medicine: Result - Labs CBC & Chem 7: 01/13/19 05:54 01/13/19 05:54 Labs: Short CBC 01/13/19 Range/Units 05:54 WBC 4.6 (4.3-11.1) K/mcL Hgb 10.7 L (12.9-16.9) g/dL Hct 33.8 L (37.5-50.1) % Plt Count 119 L (140-400) K/mcL BMP 01/13/19 05:54 Sodium 143 Potassium 4.6 Chloride 110 H Carbon Dioxide 23 BUN 53 H Creatinine 2.47 H Glucose 146 H Calcium 8.4 L - ABG Interpretation ABG results: PT/INR, D-dimer PT 13.0 Seconds (9.4-12.1) H 01/10/19 12:14 - Impressions Impressions Chest CT 01/12/19 15:00 IMPRESSION: 1. Moderate bilateral pleural effusions with adjacent passive atelectasis of the lower lobes. Superimposed infection is not excluded. There is also high-density material within the atelectatic right lower lobe which may be related to prior aspiration of enteric contrast. 2. Few nodular opacities predominately within the left lower lobe the largest of which measures up to 9 mm. These may be infectious or inflammatory in etiology and recommend follow-up to exclude neoplasm. 3. Mild mediastinal adenopathy, likely reactive. 4. There are subtle areas of ground-glass attenuation as well as interlobular septal thickening suggestive of mild edema. Recommend correlation with any history of congestive heart failure. These also may be infectious or inflammatory in etiology given other findings. RECOMMENDATIONS: Multiple pulmonary nodules. Most severe: 9.0 mm ground glass pulmonary nodule. Recommend a non-contrast Chest CT at 3-6 months. Subsequent management based on the most suspicious nodule(s). These guidelines do not apply to patients younger than 35 years, immunocompromised patients, and patients with cancer. Follow up in patients with significant comorbidities as clinically warranted. For lung cancer screening, adhere to Lung-RADS guidelines. Reference: Radiology. 2017; 284(1):228-43. D/ / 01/12/2019 15:59:30 Courtney Hernandez MD / jose luis Interpreting Provider: Courtney Hernandez MD Consult Discharge Plan - Plan [facility]errals: [facility] [Primary Care Provider[facility] - (1) CHF (congestive heart failure) Qualifiers: Heart failure type: diastolic Heart failure chronicity: acute on chronic Qualified Code(s): I50.33 - Acute on chronic diastolic (congestive) heart failure (3) Sepsis Qualifiers: Sepsis type: sepsis due to unspecified organism Qualified Code(s): A41.9 - Sepsis, unspecified organism (6) Coronary artery disease Qualifiers: Coronary Disease-Associated Artery/Lesion type: [place] artery [place] vs. 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
--- NOTE | 2019-01-13 15:47 | IR Procedure Note ---
Date of procedure: 01/13/19 Consent Obtained: Written consent Timeout: Correct patient and procedure verified, Correct site verified, Time out performed, Skin prep completed Local anesthetic: Lidocaine 1% Indications: Bilateral pleural effusions Procedure Performed: Bilateral thoracentesis Was there an obstetric assistant present: Yes [employer] Person: Anshu Hamilton Site/Technique: Bilateral thoracetesis Results/Findings: 550ml out on Left, 975ml out on right Estimated blood loss (cc): 1 Complications: None; Tolerated procedure well Post Procedure Treatment Plan: Monitoring in VIR, pts room Specimen: to lab
--- NOTE | 2019-01-13 16:03 | Physician Discharge Referral ---
Home Health/Hosp Referral Info Transfer to: Home Health Provider in Charge Post Discharge: PCP - Diagnosis (1) CHF (congestive heart failure) Priority: Primary Status: Chronic (2) Pneumonia Priority: Secondary Status: Acute (3) Sepsis Priority: Secondary Status: Acute (4) Bilateral pleural effusion Priority: Secondary Status: Acute (5) NSTEMI (non-ST elevated myocardial infarction) Priority: Secondary Status: Acute (6) Coronary artery disease Priority: Secondary Status: Chronic (7) CKD (chronic kidney disease) stage 3, GFR 30-59 ml/min Priority: Secondary Status: Acute (8) CML (chronic myelocytic leukemia) Priority: Secondary Status: Acute (9) Leucopenia Priority: Secondary Status: Resolved (10) Diabetes mellitus Priority: Secondary Status: Acute (11) Hypertension Priority: Secondary Status: Chronic (12) Lung nodule Priority: Secondary Status: Acute (13) DVT prophylaxis Priority: Secondary Status: Acute - Respiratory Orders Oxygen / L per min Smoking Cessation: Smoking cessation has been advised. For more information, call the [employer] Quit Line at [phone]. - Diet/Nutrition Diet/Nutrition Orders: Cardiac (diabetic, fluid restriction <1500 ml) - Activity Activity Orders: Ambulate - Services Needed Following services are medically necessary services: Nursing (bharti has acute on chronic CHF excaerbation and has been treated in [facility] with iuretcs, he had pleural effusions which required bilateral thoracocentesis in addition to PNA and sepsis which he was treated for. he requires assistance at home and home PT and OT and nursing for his multiple comorbidities as he lives alone.), Home H ealth Aide, Physical Therapy - Transfer Medications Home Medications: Acetaminophen [Tylenol] 325 mg PO QID PRN 11/24/18 [History] Allopurinol [Zyloprim 100 MG] 200 mg PO DAILY 11/24/18 [History] Aspirin [Lo-Dose Aspirin EC] 81 mg PO DAILY 11/24/18 [History] Cholecalciferol (D-3) [Vitamin D] 4,000 unit PO DAILY 11/24/18 [History] Clobetasol Propionate 0.05% [Temovate] 1 appl TP BID PRN 11/24/18 [History] Clopidogrel [Plavix] 75 mg PO DAILY 11/24/18 [History] Docusate Sodium [Dulcolax Stool Softener] 100 mg PO BID 11/24/18 [History] Furosemide [Lasix] 10 mg PO DAILY 11/24/18 [History] Insulin Glargine,Hum.rec.anlog [Lantus Solostar] 42 unit SQ HS 11/24/18 [History] Isosorbide MONOnitrate (24 HR) [Imdur] 30 mg PO DAILY 11/24/18 [History] Loratadine [Allergy Relief] 10 mg PO DAILY PRN 11/24/18 [History] Nitroglycerin [Nitrostat] 0.4 mg SL Q5MIN PRN 11/24/18 [History] Omeprazole [PriLOSEC] 20 mg PO DAILY 11/24/18 [History] Pregabalin [Lyrica] 75 mg PO BID 11/24/18 [History] Wheat Dextrin [Benefiber] 1 each PO DAILY PRN 11/24/18 [History] amLODIPine [Norvasc] 10 mg PO DAILY 11/24/18 [History] Metoprolol [Lopressor] 12.5 mg PO BID #28 tablet 11/28/18 [Rx] Imatinib Mesylate [Gleevec] 200 mg PO DAILY 01/10/19 [History] Topiramate [Topamax] 25 mg PO DAILY 01/10/19 [History] Allergies/Adverse Reactions: Allergy/AdvReac Type Severity Reaction Status Date / Time pollen extracts Allergy Mild Congested Verified 11/24/18 14:10 tramadol Allergy See Verified 11/25/18 15:23 Comments alirocumab AdvReac See Verified 11/25/18 15:23 Comments ezetimibe [From Zetia] AdvReac See Verified 11/25/18 15:23 Comments fluvastatin AdvReac See Verified 11/25/18 15:23 Comments hydrochlorothiazide AdvReac See Verified 11/25/18 15:23 Comments isosorbide AdvReac See Verified 11/25/18 15:23 Comments lisinopril AdvReac See Verified 11/25/18 15:23 Comments pravastatin AdvReac See Verified 11/25/18 15:23 Comments propranolol AdvReac See Verified 11/25/18 15:23 Comments simvastatin AdvReac See Verified 11/25/18 15:23 Comments Certification: Further, I certify that my clinical findings support that this patient is homebound (i.e. absences from home require considerable and taxing effort and are for medical reasons or mosque services or infrequently or short duration when for other reasons) because: Homebound Reason: Patient requires assistance of a person or device to safely leave home Attestation: My signature below is to certify that this patient is under my care and that I, or nurse practitioner, or a physician's topographical field assistant working with me, has a [id number] encounter with this patient.
[2019-01-13 16:43] LABS: Glucose,Pleural Fluid 146 mg/dL (No Ref Range); LDH,Pleural Fluid 156 Units/L (No Ref Range); Total Protein,Pleural Fluid < 3.0 g/dL
[2019-01-13 22:38] LABS: Appearance of Pleural Fl Clear (Clear)
[2019-01-13 22:44] LABS: RBC,Pleural Fluid < 0.002 M/mcL
[2019-01-14 04:57] LABS: Hematocrit 31.2 % (37.5-50.1); Mean Corpuscular HGB Conc 32.1 g/dL (31.6-35.5); Mean Corpuscular Hemoglobin 32.1 pg (28.0-33.3); Mean Platelet Volume 11.8 fL (9.4-12.4); Platelet Count 101 K/mcL (140-400); Red Blood Count 3.12 M/mcL (4.19-5.50); Red Cell Distribution Width 17.8 % (11.5-14.5)
[2019-01-14 04:58] LABS: VBG Ionized Calcium 1.02 mmol/L (1.15-1.35)
[2019-01-14] MEDS: *HR* Heparin 5,000 UNIT/ML VIAL SQ SCH ×3 (05:05→21:37)
[2019-01-14] MEDS: Piperacillin/Tazobactam 3.375 GM in 0.9 % Sodium Chloride Mini Bag 100 ML IVPB SCH (05:05)
[2019-01-14 05:16] LABS: Calcium 8.1 mg/dL (8.6-10.3); Potassium 4.5 mEq/L (3.5-5.1)
[2019-01-14] MEDS: Insulin LISPRO 300 UNITS/3 ML VIAL SQ SCH ×4 (07:21→21:36)
[2019-01-14] MEDS ORDERED: Furosemide 40 MG/4 ML VIAL IVP SCH (09:00)
[2019-01-14] MEDS: Cholecalciferol (D-3) 1,000 UNIT TABLET PO SCH (09:33)
[2019-01-14] MEDS: Pregabalin 75 MG CAPSULE PO SCH ×2 (09:34→21:36)
[2019-01-14] MEDS: Isosorbide MONOnitrate (24 HR) 30 MG TAB.ER.24H PO SCH (09:34)
[2019-01-14] MEDS: Aspirin Enteric Coated 81 MG Tablet PO SCH (09:34)
[2019-01-14] MEDS: Topiramate 25 MG TABLET PO SCH (09:34)
--- NOTE | 2019-01-14 11:07 | Discharge Summary ---
- NOTES TO OUTPATIENT PROVIDER Notes to Outpatient Provider: follow up with cardiology as OP, follow up with pulmonology as OP. for PCP to follow up Chest CT at 3-6 months. follow up with pre-existing safety counselor Dr. Eng in [place], [place], on 02/05/2019. Orders not resulted at time of discharge: Pending orders 01/10/19 09:39 Culture,Blood [BC] Stat 01/11/19 11:57 Sputum Culture [Culture,Sputum with Gram Stain] [RM] Stat 01/13/19 15:21 Albumin,Body Fluid Routine 01/13/19 15:38 Cytology [PTH] Routine 01/13/19 15:39 Cytology [PTH] Routine 01/15/19 04:00 Basic Metabolic Panel AM 0400 CBC no Diff [Complete Blood Count w/o Diff] [HEME] AM 0400 01/16/19 04:00 Basic Metabolic Panel AM 0400 CBC no Diff [Complete Blood Count w/o Diff] [HEME] AM 0400 01/17/19 04:00 Basic Metabolic Panel AM 0400 CBC no Diff [Complete Blood Count w/o Diff] [HEME] AM 0400 01/18/19 04:00 Basic Metabolic Panel AM 0400 CBC no Diff [Complete Blood Count w/o Diff] [HEME] AM 0400 01/19/19 04:00 Basic Metabolic Panel AM 0400 CBC no Diff [Complete Blood Count w/o Diff] [HEME] AM 0400 01/20/19 04:00 Basic Metabolic Panel AM 0400 CBC no Diff [Complete Blood Count w/o Diff] [HEME] AM 0400 Date of Encounter: 01/14/19 Time of Encounter: 11:05 - Discharge Diagnosis (1) CHF (congestive heart failure) Priority: Primary Status: Chronic Qualifiers: Heart failure type: diastolic Heart failure chronicity: acute on chronic Qualified Code(s): I50.33 - Acute on chronic diastolic (congestive) heart failure (2) Pneumonia Priority: Secondary Status: Acute (3) Sepsis Priority: Secondary Status: Acute Qualifiers: Sepsis type: sepsis due to unspecified organism Qualified Code(s): A41.9 - Sepsis, unspecified organism (4) Bilateral pleural effusion Priority: Secondary Status: Acute (5) Coronary artery disease Priority: Secondary Status: Chronic Qualifiers: Coronary Disease-Associated Artery/Lesion type: [place] artery [place] vs. transplanted heart: [place] heart Associated angina: without angina Qualified Code(s): I25.10 - Atherosclerotic heart disease of [place] coronary artery without angina pectoris (6) CKD (chronic kidney disease) stage 3, GFR 30-59 ml/min Priority: Secondary Status: Acute (7) CML (chronic myelocytic leukemia) Priority: Secondary Status: Acute (8) Leucopenia Priority: Secondary Status: Resolved Qualifiers: Leukopenia type: neutropenia Neutropenia type: unspecified Qualified Code(s): D70.9 - Neutropenia, unspecified (9) Diabetes mellitus Priority: Secondary Status: Acute Qualifiers: Diabetes mellitus type: type 2 Diabetes mellitus intermediate designer insulin use: with prison use Diabetes mellitus complication detail: with chronic kidney disease Chronic kidney disease stage: stage 3 (moderate) Qualified Code(s): E11.22 - Type 2 diabetes mellitus with diabetic chronic kidney disease; N18.3 - Chronic kidney disease, stage 3 (moderate); Z79.4 - intermediate designer (current) use of insulin (10) Hypertension Priority: Secondary Status: Chronic Qualifiers: Hypertension type: essential hypertension Qualified Code(s): I10 - Essential (primary) hypertension (11) Lung nodule Priority: Secondary Status: Acute (12) DVT prophylaxis Priority: Secondary Status: Acute (13) Elevated troponin Priority: Secondary Status: Acute Hospital course: "Mr. Aguilar is a 83 year old male with history of CAD status post 3 stent and last 1 2016 CHF, CK D, diabetes mellitus, CML following oncologists at [facility] and currently on treatment, COPD, hyperlipidemia, hypertension was transferred to [facility] from the [facility] with sudden onset of chest pain while resting this morning nonradiating 5 x 6/10,. Patient got admitted for shortness of breath yesterday at [facility]. Patient was recently started 2 L oxygen by nasal cannula 2 weeks ago by home health nurse. Patient was recently discharged from this hospital for renal failure and required 2 times hemodialysis and patient recovered and sent back to the home with home health." patient was admitted and was started n IV Abx for sepsis ( leukopenia and tachycardia and tachypnia), oncology consulted and recs followed. he was started on IV diuretics with he had -7350L balance and improvement in his respiratory status. cardiology was consulted for elevated troponins and acute CHF and recommended diuresis and to continue home medications. elevated troponin was thought to be supply vs demand mismatch secondary to CHF as per cardiology team, he did not have any chest pain through out hospitalization, No acute ischemic ECG changes. to follow up as OP with cardiology. CT performed on 01/12 as he continued to be dyspnic despite diuresis, it should bilateral pleural effusions and he underwent thoracocentesis on 01/13 and A total of 550 mL from the left and 975 mL from the right was removed. i discussed the pleural fluid findings with Dr. saeed and he also agreed that the fluid is most likely exudative due to lasix that he had received as it only met 1 lights criteria. for PCP to followthe cytology results and cultures from the fluids. respiratory status improved greatly post thoracocentesis. he was staurating well on his Home O2 dose. he remained afebile, urine antigens negative, BCX NGTD, WBC count were 4.5. he recieved total of 5 days of IV Abx and was transitioned to PO Abx to complete the remainder of luis angel course. it was recommended that he continue imatinib as OP by oncology and Further dose adjustment for his oncology Dr. Simone WOODARD at [facility]. renal functions remained stable, nephrology was on board while he was diuresing - he is to follow up with his private safety counselor Dr. Eng in [place], [place], on 02/05/2019. to have CT chest repeated in 3-6 months for lung nodules. he was counseled on importance of fluid restriction, daily weights. he was at baseline and wished to be discharged home he was cleared for discharge by cardiology, oncology and nephrology. he wished to return home and declined being evaluated for SNF. nebulizer RX provided. social work and CM were on board- [facility] and services ( PT/OT) were to be reinstated prior to patient returning home. to have CBC and BMP repeated in one week by his PCP Echo 11/24/18 impressions: LVEF 60-65%. Mild left ventricular diastolic dysfunction. Normal right ventricular structure and function. No significant valvular dysfunction. No pulmonary hypertension. Left Ventricular Wall Motion: Rest Echo Findings All wall segments showed normal motion. Discharge discussed with: patient, family, nurse, social work, case management, residential solar consultant - Time Spent with Patient Total time spent providing and/or coordinating discharge services: Time spent: Greater than 30 minutes (40) - Discharge Medications Prescriptions: New Ipratropium/Albuterol Neb [Duoneb] 3 ml IH [id number] PRN #30 inhsol PRN Reason: Shortness Of Breath metroNIDAZOLE [Metronidazole] 500 mg PO Q8H 6 Days #18 tablet Cefdinir [Omnicef] 300 mg PO DAILY 6 Days #6 capsule Nebulizer and Compressor [Ombra Compressor System] 1 each MC QID PRN #1 each PRN Reason: Dyspnea Continued Pregabalin [Lyrica] 75 mg PO BID Omeprazole [PriLOSEC] 20 mg PO DAILY Nitroglycerin [Nitrostat] 0.4 mg SL Q5MIN PRN PRN Reason: Chest Pain Loratadine [Allergy Relief] 10 mg PO DAILY PRN PRN Reason: ALLERGIES Isosorbide MONOnitrate (24 HR) [Imdur] 30 mg PO DAILY Insulin Glargine,Hum.rec.anlog [Lantus Solostar] 42 unit SQ HS Docusate Sodium [Dulcolax Stool Softener] 100 mg PO BID Clopidogrel [Plavix] 75 mg PO DAILY Clobetasol Propionate 0.05% [Temovate] 1 appl TP BID PRN PRN Reason: RASH ON LEGS Cholecalciferol (D-3) [Vitamin D] 4,000 unit PO DAILY Aspirin [Lo-Dose Aspirin EC] 81 mg PO DAILY amLODIPine [Norvasc] 10 mg PO DAILY Allopurinol [Zyloprim 100 MG] 200 mg PO DAILY Acetaminophen [Tylenol] 325 mg PO QID PRN PRN Reason: Pain Wheat Dextrin [Benefiber] 1 each PO DAILY PRN PRN Reason: Constipation Metoprolol [Lopressor] 12.5 mg PO BID #28 tablet Imatinib Mesylate [Gleevec] 200 mg PO DAILY Topiramate [Topamax] 25 mg PO DAILY Changed Furosemide [Lasix] 20 mg PO DAILY #30 Home Medications: Acetaminophen [Tylenol] 325 mg PO QID PRN 11/24/18 [History] Allopurinol [Zyloprim 100 MG] 200 mg PO DAILY 11/24/18 [History] Aspirin [Lo-Dose Aspirin EC] 81 mg PO DAILY 11/24/18 [History] Cholecalciferol (D-3) [Vitamin D] 4,000 unit PO DAILY 11/24/18 [History] Clobetasol Propionate 0.05% [Temovate] 1 appl TP BID PRN 11/24/18 [History] Clopidogrel [Plavix] 75 mg PO DAILY 11/24/18 [History] Docusate Sodium [Dulcolax Stool Softener] 100 mg PO BID 11/24/18 [History] Insulin Glargine,Hum.rec.anlog [Lantus Solostar] 42 unit SQ HS 11/24/18 [History] Isosorbide MONOnitrate (24 HR) [Imdur] 30 mg PO DAILY 11/24/18 [History] Loratadine [Allergy Relief] 10 mg PO DAILY PRN 11/24/18 [History] Nitroglycerin [Nitrostat] 0.4 mg SL Q5MIN PRN 11/24/18 [History] Omeprazole [PriLOSEC] 20 mg PO DAILY 11/24/18 [History] Pregabalin [Lyrica] 75 mg PO BID 11/24/18 [History] Wheat Dextrin [Benefiber] 1 each PO DAILY PRN 11/24/18 [History] amLODIPine [Norvasc] 10 mg PO DAILY 11/24/18 [History] Metoprolol [Lopressor] 12.5 mg PO BID #28 tablet 11/28/18 [Rx] Imatinib Mesylate [Gleevec] 200 mg PO DAILY 01/10/19 [History] Topiramate [Topamax] 25 mg PO DAILY 01/10/19 [History] Cefdinir [Omnicef] 300 mg PO DAILY 6 Days #6 capsule 01/14/19 [Rx] Furosemide [Lasix] 20 mg PO DAILY #30 01/14/19 [Rx] Ipratropium/Albuterol Neb [Duoneb] 3 ml IH [id number] PRN #30 inhsol 01/14/19 [Rx] Nebulizer and Compressor [Ombra Compressor System] 1 each MC QID PRN #1 each 01/14/19 [Rx] metroNIDAZOLE [Metronidazole] 500 mg PO Q8H 6 Days #18 tablet 01/14/19 [Rx] Allergies/Adverse Reactions: Allergy/AdvReac Type Severity Reaction Status Date / Time pollen extracts Allergy Mild Congested Verified 11/24/18 14:10 tramadol Allergy See Verified 11/25/18 15:23 Comments alirocumab AdvReac See Verified 11/25/18 15:23 Comments ezetimibe [From Zetia] AdvReac See Verified 11/25/18 15:23 Comments fluvastatin AdvReac See Verified 11/25/18 15:23 Comments hydrochlorothiazide AdvReac See Verified 11/25/18 15:23 Comments isosorbide AdvReac See Verified 11/25/18 15:23 Comments lisinopril AdvReac See Verified 11/25/18 15:23 Comments pravastatin AdvReac See Verified 11/25/18 15:23 Comments propranolol AdvReac See Verified 11/25/18 15:23 Comments simvastatin AdvReac See Verified 11/25/18 15:23 Comments Date of admission: 01/10/19 14:58 Primary care physician: PCP [place] Consults: 01/10/19 11:10 Consult to Cardiology [CONS] Stat Comment: Consulting Provider: Cardiology Radha Reason for Consult: elevated troponin Call Completed: Yes 01/10/19 12:49 Consult to Cardiology [CONS] Routine Comment: Consulting Provider: Cardiology Radha Reason for Consult: NSTEMI Call Completed: Yes 01/10/19 13:07 Consult to Oncology Hematology [CONS] Routine Consulting Provider: Jennifer Haynes Reason for Consult: CML Call Completed: Yes 01/10/19 16:28 Consult to Cross Tie Tram Loader [CONS] Routine Reason for SW Consult: [facility]. He stated that hes wanting to possibly try to get aids [facility]. 01/11/19 11:48 Consult to Nephrology [CONS] Routine Consulting Provider: Kidney Radha/FRAN/MUNDO/ZANDRA Reason for Consult: CKD, here for fluid overload and is being diuresed on lasix. has required HD previously Call Completed: No 01/12/19 08:14 Consult to Nurse Navigator [CONS] Routine Comment: pn, chf - Constitutional Vitals: Temp Pulse Resp BP Pulse Ox 97.8 F 75 17 177/55 95 01/14/19 07:19 01/14/19 07:19 01/14/19 07:19 01/14/19 07:19 01/14/19 07:19 Exam: General appearance: Mild respiratory distress. speaks in full setences A&O X 3, obese Head exam: Atraumatic Eye exam: EOMI, PERRLA ENT exam: Moist oral mucosa Neck nontender, supple Respiratory exam: tachypnic, Bibasilar crackles, no wheezing Cardiovascular exam: Regular rate and rhythm, could not appreciate murmur Abdominal exam: Soft, nontender, nondistended, positive bowel sounds Extremities exam: No calf tenderness, trace edema Present Skin-no rash, warm, dry, intact Neurological exam: Alert, awake, oriented 3, nofocal deficit - Patient Status Disposition: Home Health Service Condition: Fair Functional capacity at discharge: uses cane/walker Overall status at discharge: patient is progressing back to baseline - Discharge Instructions [facility] - - Diet and Activity Activity: ambulate only with your walker Diet: low salt diet (fluid restricted )
[2019-01-14] MEDS: Cefdinir 300 MG CAPSULE PO SCH (12:58)
[2019-01-14] MEDS: metroNIDAZOLE 500 MG TABLET PO SCH ×3 (12:58→21:36)
--- NOTE | 2019-01-14 14:10 | Internal Med Progress Note ---
Hospitalist Progress Note - Encounter Date of Encounter: 01/14/19 Time of Encounter: 09:00 - Subjective Interval History: bharti was seen and examined at bedside. respiratory status has improved significantly since admission especially since he had thoracocentesis on 01/13. all questions answered. he understads that the cultures are pending. denies CP, cough, N/v/D, has had no fever or chills. is in agreement to work with Pt/OT . - Exam Vitals: Temp Pulse Resp BP Pulse Ox 97.6 F 69 16 148/61 97 01/14/19 11:10 01/14/19 11:10 01/14/19 11:10 01/14/19 11:10 01/14/19 11:10 Exam: General appearance: Mild respiratory distress. speaks in full setences A&O X 3, obese Head exam: Atraumatic Eye exam: EOMI, PERRLA ENT exam: Moist oral mucosa Neck nontender, supple Respiratory exam: tachypnic, Bibasilar crackles, no wheezing Cardiovascular exam: Regular rate and rhythm, could not appreciate murmur Abdominal exam: Soft, nontender, nondistended, positive bowel sounds Extremities exam: No calf tenderness, trace edema Present Skin-no rash, warm, dry, intact Neurological exam: Alert, awake, oriented 3, nofocal deficit - Assessment and Plan (1) CHF (congestive heart failure) Current Visit: No Status: Chronic Assessment and Plan: acute on chronic HFpEF CT chest with pleural effusuion s/p thoracocentesis BLT TTE 10/2018 with LVEF preserved, no wall motion abnormalities. transitioned to PO lasix 20 mg daily- currently negative 7L since admission- Strict I/O watch renal functions closely has required dialysis in the past - nephrology recs appreciated fluid restriction, daily weights CT chest: Moderate bilateral pleural effusions with adjacent passive atelectasis of the lower lobes. Superimposed infection is not excluded. There is also high-density material within the atelectatic right lower lobe which may be related to prior aspiration of enteric contrast. 2. Few nodular opacities predominately within the left lower lobe the largest of which measures up to 9 mm. These may be infectious or inflammatory in etiology and recommend follow-up to exclude neoplasm. 3. Mild mediastinal adenopathy, likely reactive. 4. There are subtle areas of ground-glass attenuation as well as interlobular septal thickening suggestive of mild edema. Recommend correlation with any history of congestive heart failure. These also may be infectious or inflammatory in etiology given other findings. IMPRESSION: 1. Cardiomegaly with vascular congestion. 2. Right pleural effusion with associated atelectasis and/or infiltrate. 3. Left lower lobe atelectasis. (2) Pneumonia Current Visit: Yes Status: Acute Assessment and Plan: Possibility of hospital-acquired pneumonia as patient had recent hospitalization last month vs aspiration. Patient had productive shortness of breath, cough, chest x-ray abnormal. afebrile, leukopenia has resolved lactic acid negative started on omnicef and metronidazole as we are anticipating discharge to complete a total 10 day course of ABx. urine antigens negative sputum cx pending- nursing staff aware. Duo-nebs oxygen via nasal cannula MRSA nasal swab - negative Bipap if he develops respiratory distress. Ct chest: 1. Moderate bilateral pleural effusions with adjacent passive atelectasis of the lower lobes. Superimposed infection is not excluded. There is also high-density material within the atelectatic right lower lobe which may be related to prior aspiration of enteric contrast. 2. Few nodular opacities predominately within the left lower lobe the largest of which measures up to 9 mm. These may be infectious or inflammatory in etiology and recommend follow-up to exclude neoplasm. 3. Mild mediastinal adenopathy, likely reactive. 4. There are subtle areas of ground-glass attenuation as well as interlobular septal thickening suggestive of mild edema. Recommend correlation with any history of congestive heart failure. These also may be infectious or inflammatory in etiology given other findings. (3) Sepsis Current Visit: Yes Status: Acute Assessment and Plan: secondary to above - resolved leukopenia and tachycardia on admission (4) Bilateral pleural effusion Current Visit: Yes Status: Acute Assessment and Plan: CT with Moderate bilateral pleural effusions with adjacent passive atelectasis of the lower lobes. Superimposed infection is not excluded. There is also high-density material within the atelectatic right lower lobe which may be related to prior aspiration of enteric contrast. IR consulted s/p thoracocentesis BLT on 01/14 pleural fluid analysis meets one lights criteria ( LDH), PH 7- patinet ahs been on IV lasix. i discussed case with accounting bookkeeper adon who also believes that its due to CHF however will continue with ABx as above pleural cx and cytology in process (5) Coronary artery disease Current Visit: No Status: Chronic (6) CKD (chronic kidney disease) stage 3, GFR 30-59 ml/min Current Visit: Yes Status: Acute Assessment and Plan: Baseline creatinine 2.25. Limited labs available-CKD stage 3-4 Difficult to determine if at/close to baseline due to limited labs available Continue Lasix with close monitoring of kidney function Avoid nephrotoxic drug. nephrology recs appreciated to follow up with his private steam box tender as OP. (7) CML (chronic myelocytic leukemia) Current Visit: Yes Status: Acute Assessment and Plan: Patient is on active treatment. oncology recs appreciated Patient follow [facility] outpatient at cancer clinic. (8) Leucopenia Current Visit: Yes Status: Resolved Assessment and Plan: Could be due to early sepsis as mentioned above or related with underlying cancer. currently resolved WBC count now 6.7 oncology recs appreciated "It should be okay to hold imatinib during the hospitalization and resume on discharge." Abx as above (9) Diabetes mellitus Current Visit: Yes Status: Acute Assessment and Plan: Hemoglobin A1c 6.8 Accu-Chek, SSI medium. Diabetic diet. (10) Hypertension Current Visit: No Status: Chronic Assessment and Plan: continue home medications if not CI (11) Lung nodule Current Visit: Yes Status: Acute Assessment and Plan: . Most severe: 9.0 mm ground glass pulmonary nodule. Recommend a non-contrast Chest CT at 3-6 months. (12) Elevated troponin Current Visit: Yes Status: Acute Assessment and Plan: secondary to supply vs demand mismatch cardiology did not feel as though it was due to NSTEMI. "o not suspect NSTEMI, suspect demand ischemia. Will repeat limited TTE. No cardiac rehab consult warranted. " repeated TTE withLVEF 60%. Atypical septal motion consistent with bundle branch block. Normal LV chamber size, wall thickness and systolic function. (13) DVT prophylaxis Current Visit: No Status: Acute Assessment and Plan: heparin sc - Time Spent with Patient Total time spent is greater than 50% in coordination of care (as documented) at patient's floor/unit and/or counseling patient: Internal Medicine: Result - Labs CBC & Chem 7: 01/14/19 04:44 01/14/19 04:44 Labs: Short CBC 01/14/19 Range/Units 04:44 WBC 4.5 (4.3-11.1) K/mcL Hgb 10.0 L (12.9-16.9) g/dL Hct 31.2 L (37.5-50.1) % Plt Count 101 L (140-400) K/mcL BMP 01/14/19 04:44 Sodium 141 Potassium 4.5 Chloride 111 H Carbon Dioxide 22 L BUN 48 H Creatinine 2.48 H Glucose 148 H Calcium 8.1 L - ABG Interpretation ABG results: PT/INR, D-dimer PT 13.0 Seconds (9.4-12.1) H 01/10/19 12:14 - Impressions Impressions Chest CT 01/12/19 15:00 IMPRESSION: 1. Moderate bilateral pleural effusions with adjacent passive atelectasis of the lower lobes. Superimposed infection is not excluded. There is also high-density material within the atelectatic right lower lobe which may be related to prior aspiration of enteric contrast. 2. Few nodular opacities predominately within the left lower lobe the largest of which measures up to 9 mm. These may be infectious or inflammatory in etiology and recommend follow-up to exclude neoplasm. 3. Mild mediastinal adenopathy, likely reactive. 4. There are subtle areas of ground-glass attenuation as well as interlobular septal thickening suggestive of mild edema. Recommend correlation with any history of congestive heart failure. These also may be infectious or inflammatory in etiology given other findings. RECOMMENDATIONS: Multiple pulmonary nodules. Most severe: 9.0 mm ground glass pulmonary nodule. Recommend a non-contrast Chest CT at 3-6 months. Subsequent management based on the most suspicious nodule(s). These guidelines do not apply to patients younger than 35 years, immunocompromised patients, and patients with cancer. Follow up in patients with significant comorbidities as clinically warranted. For lung cancer screening, adhere to Lung-RADS guidelines. Reference: Radiology. 2017; 284(1):228-43. D/ / 01/12/2019 15:59:30 Courtney Hernandez MD / jose luis Interpreting Provider: Courtney Hernandez MD Thoracentesis 01/13/19 13:42 IMPRESSION: Successful ultrasound guided thoracentesis. D/ / Dung Vora MD / Dung Vora MD Interpreting Provider: Dung Vora MD Thoracentesis 01/13/19 13:42 IMPRESSION: Successful ultrasound guided thoracentesis. D/ / Dung Vora MD / Dung Vora MD Interpreting Provider: Dung Vora MD Chest X-Ray 01/13/19 15:22 IMPRESSION: Status post bilateral thoracentesis. No evidence of complication. No pneumothorax. D/ / Morris Chavira MD / Morris Chavira MD Interpreting Provider: Morris Chavira MD Consult Discharge Plan - Plan [facility]errals: [facility] [Primary Care Provider] - Prescriptions: Ipratropium/Albuterol Neb [Duoneb] 3 ml IH [id number] PRN #30 inhsol PRN Reason: Shortness Of Breath metroNIDAZOLE [Metronidazole] 500 mg PO Q8H 6 Days #18 tablet Nebulizer and Compressor [Ombra Compressor System] 1 each MC QID PRN #1 each PRN Reason: Dyspnea Cefdinir [Omnicef] 300 mg PO DAILY 6 Days #6 capsule (1) CHF (congestive heart failure) Qualifiers: Heart failure type: diastolic Heart failure chronicity: acute on chronic Qualified Code(s): I50.33 - Acute on chronic diastolic (congestive) heart failure (3) Sepsis Qualifiers: Sepsis type: sepsis due to unspecified organism Qualified Code(s): A41.9 - Sepsis, unspecified organism (5) Coronary artery disease Qualifiers: Coronary Disease-Associated Artery/Lesion type: [place] artery [place] vs. transplanted heart: [place] heart Associated angina: without angina Qualified Code(s): I25.10 - Atherosclerotic heart disease of [place] coronary artery without angina pectoris (8) Leucopenia Qualifiers: Leukopenia type: neutropenia Neutropenia type: unspecified Qualified Code(s): D70.9 - Neutropenia, unspecified (9) Diabetes mellitus Qualifiers: Diabetes mellitus type: type 2 Diabetes mellitus rubber tile floor layer insulin use: with mcc use Diabetes mellitus complication detail: with chronic kidney disease Chronic kidney disease stage: stage 3 (moderate) Qualified Code(s): E11.22 - Type 2 diabetes mellitus with diabetic chronic kidney disease; N18.3 - Chronic kidney disease, stage 3 (moderate); 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
[2019-01-15] MEDS: *HR* Heparin 5,000 UNIT/ML VIAL SQ SCH ×3 (05:11→20:40)
[2019-01-15 06:29] LABS: Hematocrit 33.3 % (37.5-50.1); Hemoglobin 10.5 g/dL (12.9-16.9); Mean Corpuscular HGB Conc 31.5 g/dL (31.6-35.5); Mean Corpuscular Hemoglobin 31.3 pg (28.0-33.3); Mean Corpuscular Volume 99.1 fL (83.0-100.0); Mean Platelet Volume 11.6 fL (9.4-12.4); Platelet Count 110 K/mcL (140-400); Red Blood Count 3.36 M/mcL (4.19-5.50); Red Cell Distribution Width 17.3 % (11.5-14.5)
[2019-01-15 06:32] LABS: VBG Ionized Calcium 1.13 mmol/L (1.15-1.35)
[2019-01-15 06:52] LABS: Calcium 8.6 mg/dL (8.6-10.3); Potassium 4.3 mEq/L (3.5-5.1)
[2019-01-15] MEDS: Insulin LISPRO 300 UNITS/3 ML VIAL SQ SCH ×4 (07:24→20:33)
[2019-01-15] MEDS: metroNIDAZOLE 500 MG TABLET PO SCH ×3 (09:35→20:33)
[2019-01-15] MEDS: Pregabalin 75 MG CAPSULE PO SCH ×2 (09:36→20:33)
[2019-01-15] MEDS: Furosemide 20 MG/2 ML VIAL IVP SCH (09:36)
[2019-01-15] MEDS: Topiramate 25 MG TABLET PO SCH (09:36)
[2019-01-15] MEDS: Cefdinir 300 MG CAPSULE PO SCH (09:36)
[2019-01-15] MEDS: Cholecalciferol (D-3) 1,000 UNIT TABLET PO SCH (09:36)
[2019-01-15] MEDS: Isosorbide MONOnitrate (24 HR) 30 MG TAB.ER.24H PO SCH (09:36)
[2019-01-15] MEDS: Aspirin Enteric Coated 81 MG Tablet PO SCH (09:36)
--- NOTE | 2019-01-15 10:36 | Internal Med Progress Note ---
Hospitalist Progress Note - Encounter Date of Encounter: 01/15/19 Time of Encounter: 09:00 - Subjective Interval History: patient was seen and examined at bedside reports that his breathing continues to improve. i discussed plan of care with daughter at bedside yesterday. cultures from the pleural fluid are negative so far. i discussed that Abx were changed to PO yesterday and he reports no ADR. denies fever, chills, N/v/D. - Exam Vitals: Temp Pulse Resp BP Pulse Ox 97.7 F 90 18 176/71 95 01/15/19 07:01 01/15/19 07:01 01/15/19 07:01 01/15/19 07:01 01/15/19 07:01 Exam: General appearance: Mild respiratory distress. speaks in full sentences A&O X 3, obese Head exam: Atraumatic Eye exam: EOMI, PERRLA ENT exam: Moist oral mucosa Neck nontender, supple Respiratory exam: decreased breath sounds bilaterarily, crackle shave improved, no wheezing Cardiovascular exam: Regular rate and rhythm, could not appreciate murmur Abdominal exam: Soft, nontender, nondistended, positive bowel sounds Extremities exam: No calf tenderness, no edema Skin-no rash, warm, dry, intact Neurological exam: Alert, awake, oriented 3, nofocal deficit - Assessment and Plan (1) CHF (congestive heart failure) Current Visit: No Status: Chronic Assessment and Plan: acute on chronic HFpEF CT chest with pleural effusuion s/p thoracocentesis BLT TTE 10/2018 with LVEF preserved, no wall motion abnormalities. transitioned to PO lasix 20 mg daily- currently negative 8L since admission- Strict I/O watch renal functions closely has required dialysis in the past - nephrology recs appreciated fluid restriction, daily weights CT chest: Moderate bilateral pleural effusions with adjacent passive atelectasis of the lower lobes. Superimposed infection is not excluded. There is also high-density material within the atelectatic right lower lobe which may be related to prior aspiration of enteric contrast. 2. Few nodular opacities predominately within the left lower lobe the largest of which measures up to 9 mm. These may be infectious or inflammatory in etiology and recommend follow-up to exclude neoplasm. 3. Mild mediastinal adenopathy, likely reactive. 4. There are subtle areas of ground-glass attenuation as well as interlobular septal thickening suggestive of mild edema. Recommend correlation with any history of congestive heart failure. These also may be infectious or inflammatory in etiology given other findings. IMPRESSION: 1. Cardiomegaly with vascular congestion. 2. Right pleural effusion with associated atelectasis and/or infiltrate. 3. Left lower lobe atelectasis. (2) Pneumonia Current Visit: Yes Status: Acute Assessment and Plan: Possibility of hospital-acquired pneumonia as patient had recent hospitalization last month vs aspiration. Patient had productive shortness of breath, cough, chest x-ray abnormal. afebrile, leukopenia has resolved lactic acid negative started on omnicef and metronidazole as we are anticipating discharge to complete a total 10 day course of ABx. urine antigens negative cultures from thoracocentesis ( NGTD) Duo-nebs oxygen via nasal cannula MRSA nasal swab - negative Bipap if he develops respiratory distress. Ct chest: 1. Moderate bilateral pleural effusions with adjacent passive atelectasis of the lower lobes. Superimposed infection is not excluded. There is also high-density material within the atelectatic right lower lobe which may be related to prior aspiration of enteric contrast. 2. Few nodular opacities predominately within the left lower lobe the largest of which measures up to 9 mm. These may be infectious or inflammatory in etiology and recommend follow-up to exclude neoplasm. 3. Mild mediastinal adenopathy, likely reactive. 4. There are subtle areas of ground-glass attenuation as well as interlobular septal thickening suggestive of mild edema. Recommend correlation with any history of congestive heart failure. These also may be infectious or inflammatory in etiology given other findings. (3) Sepsis Current Visit: Yes Status: Acute Assessment and Plan: secondary to above - resolved leukopenia and tachycardia on admission (4) Bilateral pleural effusion Current Visit: Yes Status: Acute Assessment and Plan: CT with Moderate bilateral pleural effusions with adjacent passive atelectasis of the lower lobes. Superimposed infection is not excluded. There is also high-density material within the atelectatic right lower lobe which may be related to prior aspiration of enteric contrast. IR consulted s/p thoracocentesis BLT on 01/14 pleural fluid analysis meets one lights criteria ( LDH), PH 7- patient has been on IV lasix. i discussed case with cut off saw operator vmware consultant who also believes that its due to CHF however will continue with ABx as above pleural cx- NGTD cytology in process (5) Coronary artery disease Current Visit: No Status: Chronic Assessment and Plan: Status post stent. Troponins 0.25, 0.24, 0.26 in the setting of PNA, CHF, CKD. Reports atypical, pleuritic chest pain. No acute ischemic ECG changes. TTE 10/2018 with LVEF preserved, no wall motion abnormalities. asa, plavix, BB, IMDUR not on statins due to intolerance. TTE with LVEF preserved, no wall motion abnormalities (6) CKD (chronic kidney disease) stage 3, GFR 30-59 ml/min Current Visit: Yes Status: Acute Assessment and Plan: Baseline creatinine 2.25 currently 2.07 Limited labs available-CKD stage 3-4 Difficult to determine if at/close to baseline due to limited labs available Continue Lasix with close monitoring of kidney function Avoid nephrotoxic drug. nephrology recs appreciated to follow up with his private color separation photographer as OP. Dr. Eng in [place], [place], on 02/05/2019. (7) CML (chronic myelocytic leukemia) Current Visit: Yes Status: Acute Assessment and Plan: Patient is on active treatment. oncology recs appreciated Patient follow [facility] outpatient at cancer clinic. (8) Leucopenia Current Visit: Yes Status: Resolved Assessment and Plan: Could be due to early sepsis as mentioned above or related with underlying cancer. currently resolved WBC count now 6.7 oncology recs appreciated "It should be okay to hold imatinib during the hospitalization and resume on discharge." Abx as above (9) Diabetes mellitus Current Visit: Yes Status: Acute Assessment and Plan: Hemoglobin A1c 6.8 Accu-Chek, SSI medium. Diabetic diet. (10) Hypertension Current Visit: No Status: Chronic Assessment and Plan: continue home medications if not CI (11) Lung nodule Current Visit: Yes Status: Acute Assessment and Plan: . Most severe: 9.0 mm ground glass pulmonary nodule. Recommend a non-contrast Chest CT at 3-6 months. (12) Elevated troponin Current Visit: Yes Status: Acute Assessment and Plan: secondary to supply vs demand mismatch cardiology did not feel as though it was due to NSTEMI. "o not suspect NSTEMI, suspect demand ischemia. Will repeat limited TTE. No cardiac rehab consult warranted. " repeated TTE withLVEF 60%. Atypical septal motion consistent with bundle branch block. Normal LV chamber size, wall thickness and systolic function. (13) DVT prophylaxis Current Visit: No Status: Acute Assessment and Plan: heparin sc - Time Spent with Patient Total time spent is greater than 50% in coordination of care (as documented) at patient's floor/unit and/or counseling patient: Internal Medicine: Result - Labs CBC & Chem 7: 01/15/19 06:00 01/15/19 06:00 Labs: Short CBC 01/15/19 Range/Units 06:00 WBC 5.0 (4.3-11.1) K/mcL Hgb 10.5 L (12.9-16.9) g/dL Hct 33.3 L (37.5-50.1) % Plt Count 110 L (140-400) K/mcL BMP 01/15/19 06:00 Sodium 141 Potassium 4.3 Chloride 110 H Carbon Dioxide 21 L BUN 46 H Creatinine 2.07 H Glucose 138 H Calcium 8.6 - ABG Interpretation ABG results: PT/INR, D-dimer PT 13.0 Seconds (9.4-12.1) H 01/10/19 12:14 Consult Discharge Plan - Plan [facility]errals: [facility] [Primary Care Provider] - Prescriptions: Ipratropium/Albuterol Neb [Duoneb] 3 ml IH [id number] PRN #30 inhsol PRN Reason: Shortness Of Breath metroNIDAZOLE [Metronidazole] 500 mg PO Q8H 6 Days #18 tablet Nebulizer and Compressor [Ombra Compressor System] 1 each MC QID PRN #1 each PRN Reason: Dyspnea Cefdinir [Omnicef] 300 mg PO DAILY 6 Days #6 capsule (1) CHF (congestive heart failure) Qualifiers: Heart failure type: diastolic Heart failure chronicity: acute on chronic Qualified Code(s): I50.33 - Acute on chronic diastolic (congestive) heart failure (3) Sepsis Qualifiers: Sepsis type: sepsis due to unspecified organism Qualified Code(s): A41.9 - Sepsis, unspecified organism (5) Coronary artery disease Qualifiers: Coronary Disease-Associated Artery/Lesion type: [place] artery [place] vs. transplanted heart: [place] heart Associated angina: without angina Qualified Code(s): I25.10 - Atherosclerotic heart disease of [place] coronary artery without angina pectoris (8) Leucopenia Qualifiers: Leukopenia type: neutropenia Neutropenia type: unspecified Qualified Code(s): D70.9 - Neutropenia, unspecified (9) Diabetes mellitus Qualifiers: Diabetes mellitus type: type 2 Diabetes mellitus terminal make up operator insulin use: with terminal make up operator use Diabetes mellitus complication detail: with chronic kidney disease Chronic kidney disease stage: stage 3 (moderate) Qualified Code(s): E11.22 - Type 2 diabetes mellitus with diabetic chronic kidney disease; N18.3 - Chronic kidney disease, stage 3 (moderate); Z79.4 - manager long term care (current) use of insulin (10) Hypertension Qualifiers: Hypertension type: essential hypertension Qualified Code(s): I10 - Essential (primary) hypertension
[2019-01-15 15:58] LABS: Fluid Source for Albumin PLEURAL FLUID
[2019-01-16] MEDS: *HR* Heparin 5,000 UNIT/ML VIAL SQ SCH (04:15)
[2019-01-16 07:13] LABS: Hematocrit 32.6 % (37.5-50.1); Hemoglobin 10.4 g/dL (12.9-16.9); Mean Corpuscular HGB Conc 31.9 g/dL (31.6-35.5); Mean Corpuscular Hemoglobin 31.7 pg (28.0-33.3); Mean Corpuscular Volume 99.4 fL (83.0-100.0); Mean Platelet Volume 11.1 fL (9.4-12.4); Platelet Count 108 K/mcL (140-400); Red Blood Count 3.28 M/mcL (4.19-5.50); Red Cell Distribution Width 17.4 % (11.5-14.5)
[2019-01-16] MEDS: Insulin LISPRO 300 UNITS/3 ML VIAL SQ SCH ×2 (07:17→11:58)
[2019-01-16] MEDS: Cefdinir 300 MG CAPSULE PO SCH (07:36)
[2019-01-16 07:37] LABS: Calcium 8.7 mg/dL (8.6-10.3); Potassium 4.6 mEq/L (3.5-5.1)
[2019-01-16] MEDS: Isosorbide MONOnitrate (24 HR) 30 MG TAB.ER.24H PO SCH (07:37)
[2019-01-16] MEDS: metroNIDAZOLE 500 MG TABLET PO SCH (07:37)
[2019-01-16] MEDS: Aspirin Enteric Coated 81 MG Tablet PO SCH (07:37)
[2019-01-16] MEDS: Cholecalciferol (D-3) 1,000 UNIT TABLET PO SCH (07:37)
[2019-01-16] MEDS: Topiramate 25 MG TABLET PO SCH (07:37)
[2019-01-16] MEDS: Pregabalin 75 MG CAPSULE PO SCH (07:37)
[2019-01-16] MEDS: Furosemide 20 MG/2 ML VIAL IVP SCH (07:38)
--- NOTE | 2019-01-16 07:57 | Discharge Summary ---
- NOTES TO OUTPATIENT PROVIDER Notes to Outpatient Provider: follow up with cardiology as OP, follow up with pulmonology as OP. for PCP to follow up Chest CT at 3-6 months. follow up with pre-existing dynamics ax consultant Dr. Eng in [place], [place], on 02/05/2019. follo up BMP and CBC in one week Orders not resulted at time of discharge: Pending orders 01/11/19 11:57 Sputum Culture [Culture,Sputum with Gram Stain] [RM] Stat 01/13/19 15:21 Albumin,Body Fluid Routine 01/13/19 15:38 Cytology [PTH] Routine 01/13/19 15:39 Cytology [PTH] Routine 01/14/19 12:26 Culture,Body Fluid [RM] Routine 01/14/19 12:30 Culture,Body Fluid [RM] Routine 01/17/19 04:00 Basic Metabolic Panel AM 0400 CBC no Diff [Complete Blood Count w/o Diff] [HEME] AM 04001/18/19 04:00 Basic Metabolic Panel AM 0400 CBC no Diff [Complete Blood Count w/o Diff] [HEME] AM 0400 01/19/19 04:00 Basic Metabolic Panel AM 0400 CBC no Diff [Complete Blood Count w/o Diff] [HEME] AM 0400 01/20/19 04:00 Basic Metabolic Panel AM 0400 CBC no Diff [Complete Blood Count w/o Diff] [HEME] AM 0400 Date of Encounter: 01/16/19 Time of Encounter: 07:55 - Discharge Diagnosis (1) CHF (congestive heart failure) Priority: Primary Status: Chronic Qualifiers: Heart failure type: diastolic Heart failure chronicity: acute on chronic Qualified Code(s): I50.33 - Acute on chronic diastolic (congestive) heart failure (2) Pneumonia Priority: Secondary Status: Acute Qualifiers: Pneumonia type: due to unspecified organism Laterality: unspecified laterality Lung location: unspecified part of lung Qualified Code(s): J18.9 - Pneumonia, unspecified organism (3) Sepsis Priority: Secondary Status: Acute Qualifiers: Sepsis type: sepsis due to unspecified organism Qualified Code(s): A41.9 - Sepsis, unspecified organism (4) Bilateral pleural effusion Priority: Secondary Status: Acute (5) Coronary artery disease Priority: Secondary Status: Chronic Qualifiers: Coronary Disease-Associated Artery/Lesion type: habematolel artery [place] vs. transplanted heart: habematolel heart Associated angina: without angina Qualified Code(s): I25.10 - Atherosclerotic heart disease of habematolel coronary artery without angina pectoris (6) CKD (chronic kidney disease) stage 3, GFR 30-59 ml/min Priority: Secondary Status: Acute (7) CML (chronic myelocytic leukemia) Priority: Secondary Status: Acute (8) Leucopenia Priority: Secondary Status: Resolved (9) Diabetes mellitus Priority: Secondary Status: Acute Qualifiers: Diabetes mellitus type: type 2 Diabetes mellitus longterm insulin use: with longterm use Diabetes mellitus complication detail: with chronic kidney disease Chronic kidney disease stage: stage 3 (moderate) Qualified Code(s): E11.22 - Type 2 diabetes mellitus with diabetic chronic kidney disease; N18.3 - Chronic kidney disease, stage 3 (moderate); Z79.4 - intermodal truck driver (current) use of insulin (10) Hypertension Priority: Secondary Status: Chronic Qualifiers: Hypertension type: essential hypertension Qualified Code(s): I10 - Essential (primary) hypertension (11) Lung nodule Priority: Secondary Status: Acute (12) Elevated troponin Priority: Secondary Status: Acute (13) DVT prophylaxis Priority: Secondary Status: Acute Hospital course: "Mr. Aguilar is a 83 year old male with history of CAD status post 3 stent and last 1 2016 CHF, CK D, diabetes mellitus, CML following oncologists at [facility] and currently on treatment, COPD, hyperlipidemia, hypertension was transferred to [facility] from the [facility] with sudden onset of chest pain while resting this morning nonradiating 5 x 6/10,. Patient got admitted for shortness of breath yesterday at [facility]. Patient was recently started 2 L oxygen by nasal cannula 2 weeks ago by home health nurse. Patient was recently discharged from this hospital for renal failure and required 2 times hemodialysis and patient recovered and sent back to the home with home health." patient was admitted and was started n IV Abx for sepsis ( leukopenia and tachycardia and tachypnia), oncology consulted and recs followed. he was started on IV diuretics with he had -7350L balance and improvement in his respiratory status. cardiology was consulted for elevated troponins and acute CHF and recommended diuresis and to continue home medications. elevated troponin was thought to be supply vs demand mismatch secondary to CHF as per cardiology team, he did not have any chest pain through out hospitalization, No acute ischemic ECG changes. to follow up as OP with cardiology. CT performed on 01/12 as he continued to be dyspnic despite diuresis, it showed bilateral pleural effusions and he underwent thoracocentesis on 01/13 and A total of 550 mL from the left and 975 mL from the right was removed. i discussed the pleural fluid findings with Dr. saeed (quality auditor) and he also agreed that the fluid is most likely exudative due to lasix that he had received as it only met 1 lights criteria. i discussed with luis angel hay that he is to make sure PCP/oncolgist to follow the cytology results and cultures from the fluids ( cultures so far NGTD). -PTH peripheral smear from pleural fluid Negative for malignancy.Mesothelial cells, macrophages and lymphocytes.respiratory status improved greatly post thoracocentesis. he was saturating well on his Home O2 dose. he remained afebile, urine antigens negative, BCX NG, WBC count were 6. he recieved total of 5 days of IV Abx and was transitioned to PO Abx to complete the remainder of the course. it was recommended that he continue imatinib as OP by oncology and Further dose adjustment for his oncology Dr. Simone WOODARD at [facility]. renal functions remained stable, nephrology was on board while he was diuresing - he is to follow up with his private dynamics ax consultant Dr. Eng in [place], [place], on 02/05/2019. he understands that he is to have CT chest repeated in 3-6 months for lung nodules. he was counseled on importance of fluid restriction, daily weights. he was at baseline and wished to be discharged home he was cleared for discharge by cardiology, oncology and nephrology. he wished to return home and declined being evaluated for SNF. nebulizer RX provided. social work and CM were on board- [facility] and services ( PT/OT) were to be reinstated prior to patient returning home. to have CBC and BMP repeated in one week by his PCP Echo 11/24/18 impressions: LVEF 60-65%. Mild left ventricular diastolic dysfunction. Normal right ventricular structure and function. No significant valvular dysfunction. No pulmonary hypertension. Left Ventricular Wall Motion: Rest Echo Findings All wall segments showed normal motion. Discharge discussed with: patient, family, nurse, social work, case management, business process consultant - Time Spent with Patient Total time spent providing and/or coordinating discharge services: Time spent: Greater than 30 minutes (50) - Discharge Medications Prescriptions: New Ipratropium/Albuterol Neb [Duoneb] 3 ml IH [id number] PRN #30 inhsol PRN Reason: Shortness Of Breath Nebulizer and Compressor [Ombra Compressor System] 1 each MC QID PRN #1 each PRN Reason: Dyspnea metroNIDAZOLE [Flagyl] 500 mg PO TID 4 Days #12 tablet Cefdinir [Omnicef] 300 mg PO BID 4 Days #8 capsule Continued Pregabalin [Lyrica] 75 mg PO BID Omeprazole [PriLOSEC] 20 mg PO DAILY Nitroglycerin [Nitrostat] 0.4 mg SL Q5MIN PRN PRN Reason: Chest Pain Loratadine [Allergy Relief] 10 mg PO DAILY PRN PRN Reason: ALLERGIES Isosorbide MONOnitrate (24 HR) [Imdur] 30 mg PO DAILY Insulin Glargine,Hum.rec.anlog [Lantus Solostar] 42 unit SQ HS Docusate Sodium [Dulcolax Stool Softener] 100 mg PO BID Clopidogrel [Plavix] 75 mg PO DAILY Clobetasol Propionate 0.05% [Temovate] 1 appl TP BID PRN PRN Reason: RASH ON LEGS Cholecalciferol (D-3) [Vitamin D] 4,000 unit PO DAILY Aspirin [Lo-Dose Aspirin EC] 81 mg PO DAILY amLODIPine [Norvasc] 10 mg PO DAILY Allopurinol [Zyloprim 100 MG] 200 mg PO DAILY Acetaminophen [Tylenol] 325 mg PO QID PRN PRN Reason: Pain Wheat Dextrin [Benefiber] 1 each PO DAILY PRN PRN Reason: Constipation Metoprolol [Lopressor] 12.5 mg PO BID #28 tablet Imatinib Mesylate [Gleevec] 200 mg PO DAILY Topiramate [Topamax] 25 mg PO DAILY Changed Furosemide [Lasix] 20 mg PO DAILY #30 Home Medications: Acetaminophen [Tylenol] 325 mg PO QID PRN 11/24/18 [History] Allopurinol [Zyloprim 100 MG] 200 mg PO DAILY 11/24/18 [History] Aspirin [Lo-Dose Aspirin EC] 81 mg PO DAILY 11/24/18 [History] Cholecalciferol (D-3) [Vitamin D] 4,000 unit PO DAILY 11/24/18 [History] Clobetasol Propionate 0.05% [Temovate] 1 appl TP BID PRN 11/24/18 [History] Clopidogrel [Plavix] 75 mg PO DAILY 11/24/18 [History] Docusate Sodium [Dulcolax Stool Softener] 100 mg PO BID 11/24/18 [History] Insulin Glargine,Hum.rec.anlog [Lantus Solostar] 42 unit SQ HS 11/24/18 [History] Isosorbide MONOnitrate (24 HR) [Imdur] 30 mg PO DAILY 11/24/18 [History] Loratadine [Allergy Relief] 10 mg PO DAILY PRN 11/24/18 [History] Nitroglycerin [Nitrostat] 0.4 mg SL Q5MIN PRN 11/24/18 [History] Omeprazole [PriLOSEC] 20 mg PO DAILY 11/24/18 [History] Pregabalin [Lyrica] 75 mg PO BID 11/24/18 [History] Wheat Dextrin [Benefiber] 1 each PO DAILY PRN 11/24/18 [History] amLODIPine [Norvasc] 10 mg PO DAILY 11/24/18 [History] Metoprolol [Lopressor] 12.5 mg PO BID #28 tablet 11/28/18 [Rx] Imatinib Mesylate [Gleevec] 200 mg PO DAILY 01/10/19 [History] Topiramate [Topamax] 25 mg PO DAILY 01/10/19 [History] Furosemide [Lasix] 20 mg PO DAILY #30 01/14/19 [Rx] Ipratropium/Albuterol Neb [Duoneb] 3 ml IH Q5TETLE PRN #30 inhsol 01/14/19 [Rx] Nebulizer and Compressor [Ombra Compressor System] 1 each MC QID PRN #1 each 01/14/19 [Rx] Cefdinir [Omnicef] 300 mg PO BID 4 Days #8 capsule 01/16/19 [Rx] metroNIDAZOLE [Flagyl] 500 mg PO TID 4 Days #12 tablet 01/16/19 [Rx] Allergies/Adverse Reactions: 3 Allergy/AdvReac Type Severity Reaction Status Date / Time pollen extracts Allergy Mild Congested Verified 11/24/18 14:10 tramadol Allergy See Verified 11/25/18 15:23 Comments alirocumab AdvReac See Verified 11/25/18 15:23 Comments ezetimibe [From Zetia] AdvReac See Verified 11/25/18 15:23 Comments fluvastatin AdvReac See Verified 11/25/18 15:23 Comments hydrochlorothiazide AdvReac See Verified 11/25/18 15:23 Comments isosorbide AdvReac See Verified 11/25/18 15:23 Comments lisinopril AdvReac See Verified 11/25/18 15:23 Comments pravastatin AdvReac See Verified 11/25/18 15:23 Comments propranolol AdvReac See Verified 11/25/18 15:23 Comments simvastatin AdvReac See Verified 11/25/18 15:23 Comments Date of admission: 01/10/19 14:58 [facility] care physician[facility]ults: 01/10/19 11:10 Consult to Cardiology [CONS] Stat Comment: Consulting Provider: Cardiology Radha Reason for Consult: elevated troponin Call Completed: Yes 01/10/19 12:49 Consult to Cardiology [CONS] Routine Comment: Consulting Provider: Cardiology Radha Reason for Consult: NSTEMI Call Completed: Yes 01/10/19 13:07 Consult to Oncology Hematology [CONS] Routine Consulting Provider: Jennifer Haynes Reason for Consult: CML Call Completed: Yes 01/10/19 16:28 Consult to Concrete Mixer [CONS] Routine Reason for SW Consult: patient [facility] but [facility]. He stated that hes wanting to possibly try to get aids [facility] the [facility]. 01/11/19 11:48 Consult to Nephrology [CONS] Routine Consulting Provider: Kidney Radha/FRAN/MUNDO/ZANDRA Reason for Consult: CKD, here for fluid overload and is being diuresed on lasix. has required HD previously Call Completed: No 01/12/19 08:14 Consult to Nurse Navigator [CONS] Routine Comment: pn, chf 01/14/19 12:25 Consult to Physical Therapy [CONS] Routine Comment: Evaluate, develop and implement POC Reason for Consult: dispostion Does patient have active BEDREST order?: No Is patient medically & hemodynamically stable?: Yes Patient assessed for mobility or mobilized this visit?: Yes OT [Consult to Occupational Therapy] [CONS] Routine Comment: Evaluate, develop and implement POC Reason for Consult: disposition Does patient have active BEDREST order?: No Is patient medically & hemodynamically stable?: Yes Patient assessed for mobility or mobilized this visit?: Yes 01/14/19 14:12 Consult to Speech Therapy [CONS] Routine Comment: Evaluate, develop and implement POC Reason for Consult: ? aspiration Call Completed: No - Constitutional Vitals: Temp Pulse Resp BP Pulse Ox 97.9 F 68 18 156/64 96 01/16/19 06:32 01/16/19 06:32 01/16/19 06:32 01/16/19 06:32 01/16/19 06:32 Exam: General appearance: Mild respiratory distress. speaks in full sentences A&O X 3, obese Head exam: Atraumatic Eye exam: EOMI, PERRLA ENT exam: Moist oral mucosa Neck nontender, supple Respiratory exam: decreased breath sounds bilaterarily, crackles have improved and occasional, no wheezing Cardiovascular exam: Regular rate and rhythm, could not appreciate murmur Abdominal exam: Soft, nontender, nondistended, positive bowel sounds Extremities exam: No calf tenderness, no edema Skin-no rash, warm, dry, intact Neurological exam: Alert, awake, oriented 3, nofocal deficit - Patient Status Disposition: Home Health Service Condition: Fair Functional capacity at discharge: uses cane/walker Overall status at discharge: patient is progressing back to baseline - Discharge Instructions [facility] With: [facility] Care Provider[facility] - (called [facility] and left message with patient name and Birthday) Additional Instructions: ontinue imatinib as OP by oncology and Further dose adjustment for his oncology Dr. Simone WOODARD at [facility]. renal functions remained stable, nephrology was on board while he was diuresing - he is to follow up with his private dynamics ax consultant Dr. Eng in [place], [place], on 02/05/2019. he understands that he is to have CT chest repeated in 3-6 months for lung nodules. follow pleural fluid cytology - Diet and Activity Activity: increase activity as tolerated Diet: low salt diet (cardiac, fluid restricted <1500)
[2019-01-16 10:59] VITALS: BP 129/63
[2019-01-16] MEDS ORDERED: Cefdinir 300 MG CAPSULE PO SCH (21:00)
== END 2019-01-16 12:15 | disposition home health service (06) | DRG 871 ==
LOC: EMEROOARM 08:32 → SUATTDRO 14:58 → 2ANU 14:58
PROVIDERS: ADMIT Student in an Organized Health Care Education/Training Program; ATTEND Internal Medicine

== ENCOUNTER 2019-08-03 17:15 | Inpatient (IN) ==
[2019-08-03 18:09] LABS: Basophils # 0.1 K/mcL (0.0-0.2); Basophils % 0.9 %; Eosinophils % 7.2 %; Hematocrit 35.9 % (37.5-50.1); Hemoglobin 11.8 g/dL (12.9-16.9); Immature Granulocytes % 1.6 % (0-4); Lymphocytes # 1.3 K/mcL (0.6-4.6); Mean Corpuscular HGB Conc 32.9 g/dL (31.6-35.5); Mean Corpuscular Volume 91.3 fL (83.0-100.0); Mean Platelet Volume 10.9 fL (9.4-12.4); Monocytes # 1.2 K/mcL (0.0-1.3); Monocytes % 9.3 %; Neutrophils # 9.4 K/mcL (1.6-8.9); Platelet Count 210 K/mcL (140-400); Red Blood Count 3.93 M/mcL (4.19-5.50); Red Cell Distribution Width 14.9 % (11.5-14.5); White Blood Count 13.3 K/mcL (4.3-11.1)
[2019-08-03 18:57] LABS: Albumin 3.7 g/dL (3.5-5.7); Bilirubin,Total 0.3 mg/dL (0.3-1.0); Calcium 9.3 mg/dL (8.6-10.3); Globulin 3.7 g/dL (2.4-3.5); Potassium 3.5 mEq/L (3.5-5.1); Total Protein 7.4 g/dL (6.4-8.9)
[2019-08-03] MEDS ORDERED: Ipratropium/Albuterol Neb 3 ML IH PRN (20:23)
[2019-08-03] MEDS ORDERED: Nitroglycerin 0.4 MG TAB.SUBL SL PRN (20:23)
[2019-08-03] MEDS ORDERED: Acetaminophen 325 MG TABLET PO PRN (20:25)
[2019-08-03] MEDS ORDERED: Ondansetron 4 MG/2 ML VIAL IVP PRN (20:25)
[2019-08-03] MEDS ORDERED: Dextrose Gel 15 GM/37.5 ML TUBE PO PRN ×2 (20:30)
[2019-08-03] MEDS ORDERED: *HR* Dextrose 50 % in Water (Syg) 50 ML SYRINGE IVP PRN (20:30)
[2019-08-03] MEDS ORDERED: Ringers Solution, Lactated 1,000 ML IVC SCH ×2 (20:45→21:53)
[2019-08-03] MEDS ORDERED: Insulin DETEMIR 100 UNIT/ML X5UNITS SQ SCH (21:00)
[2019-08-03 21:31] LABS: INR 1.1; Prothrombin Time 12.5 Seconds (9.4-12.1)
[2019-08-03 21:33] LABS: Activated Partial Thrombo Time 27.7 Seconds (26.0-36.0)
[2019-08-03] MEDS: Pregabalin 75 MG CAPSULE PO SCH (22:24)
[2019-08-04] MEDS: Piperacillin/Tazobactam 3.375 GM in 0.9 % Sodium Chloride Mini Bag 100 ML IVPB SCH ×4 (00:53→23:36)
[2019-08-04] MEDS: Insulin LISPRO 300 UNITS/3 ML VIAL SQ SCH ×4 (01:00→17:52)
[2019-08-04] MEDS ORDERED: amLODIPine 5 MG TABLET PO SCH (09:00)
[2019-08-04] MEDS ORDERED: Isosorbide MONOnitrate (24 HR) 30 MG TAB.ER.24H PO SCH (09:00)
[2019-08-04] MEDS: Pregabalin 75 MG CAPSULE PO SCH ×2 (09:00→20:35)
[2019-08-04] MEDS ORDERED: Aspirin Enteric Coated 81 MG Tablet PO SCH (09:00)
[2019-08-04] MEDS ORDERED: Furosemide 20 MG TABLET PO SCH (09:00)
[2019-08-04 12:07] LABS: Estimated Average Glucose 220 mg/dl
[2019-08-04] MEDS ORDERED: Bupivacaine/EPI 1:200k 0.25%PF 30 ML VIAL ONE (16:45)
[2019-08-04] MEDS ORDERED: *HR* Propofol 200 MG/20 ML VIAL IVP ONE (16:58)
[2019-08-04] MEDS ORDERED: *HR* FentaNYL (PF) 100 MCG/2 ML VIAL ONE (16:58)
[2019-08-04] MEDS ORDERED: Vancomycin 1,000 MG VIAL ONE (17:02)
[2019-08-04] MEDS ORDERED: Ipratropium/Albuterol Neb 3 ML IH PRN (19:35)
[2019-08-04] MEDS ORDERED: *HR* Dextrose 50 % in Water (Syg) 50 ML SYRINGE IVP PRN (19:35)
[2019-08-04] MEDS ORDERED: Dextrose Gel 15 GM/37.5 ML TUBE PO PRN ×2 (19:35)
[2019-08-04] MEDS ORDERED: Ondansetron 4 MG/2 ML VIAL IVP PRN (19:35)
[2019-08-04] MEDS ORDERED: Nitroglycerin 0.4 MG TAB.SUBL SL PRN (19:35)
[2019-08-04] MEDS ORDERED: Acetaminophen 325 MG TABLET PO PRN (19:35)
[2019-08-04] MEDS: Insulin DETEMIR 100 UNIT/ML X5UNITS SQ SCH (23:35)
[2019-08-05] MEDS ORDERED: Insulin LISPRO 300 UNITS/3 ML VIAL SQ SCH
[2019-08-05] MEDS: amLODIPine 5 MG TABLET PO SCH (08:16)
[2019-08-05] MEDS: Pregabalin 75 MG CAPSULE PO SCH ×2 (08:17→20:32)
[2019-08-05] MEDS: Isosorbide MONOnitrate (24 HR) 30 MG TAB.ER.24H PO SCH (08:18)
[2019-08-05] MEDS: Aspirin Enteric Coated 81 MG Tablet PO SCH (08:19)
[2019-08-05] MEDS: Piperacillin/Tazobactam 3.375 GM in 0.9 % Sodium Chloride Mini Bag 100 ML IVPB SCH ×2 (08:20→16:50)
[2019-08-05] MEDS: Insulin LISPRO 300 UNITS/3 ML VIAL SQ SCH ×3 (08:21→17:09)
[2019-08-05 10:28] LABS: Basophils # 0.1 K/mcL (0.0-0.2); Basophils % 0.9 %; Eosinophils # 0.7 K/mcL (0.0-0.6); Eosinophils % 6.3 %; Hematocrit 33.1 % (37.5-50.1); Immature Granulocytes % 1.1 % (0-4); Lymphocytes # 0.9 K/mcL (0.6-4.6); Lymphocytes % 7.3 %; Mean Corpuscular HGB Conc 33.2 g/dL (31.6-35.5); Mean Corpuscular Hemoglobin 29.7 pg (28.0-33.3); Mean Corpuscular Volume 89.5 fL (83.0-100.0); Monocytes # 1.1 K/mcL (0.0-1.3); Neutrophils # 8.8 K/mcL (1.6-8.9); Platelet Count 214 K/mcL (140-400); Red Cell Distribution Width 14.8 % (11.5-14.5); Segmented Neutrophils % 75.4 %; White Blood Count 11.7 K/mcL (4.3-11.1)
[2019-08-05 10:47] LABS: Calcium 8.8 mg/dL (8.6-10.3); Potassium 3.8 mEq/L (3.5-5.1)
[2019-08-05] MEDS ORDERED: *HR* Heparin 5,000 UNIT/ML VIAL SQ SCH (18:00)
[2019-08-05] MEDS: *HR* Heparin 5,000 UNIT/ML VIAL SQ SCH (18:13)
[2019-08-05] MEDS: Insulin DETEMIR 100 UNIT/ML X5UNITS SQ SCH (22:12)
[2019-08-06] MEDS: Piperacillin/Tazobactam 3.375 GM in 0.9 % Sodium Chloride Mini Bag 100 ML IVPB SCH ×3 (00:21→16:44)
[2019-08-06 03:24] LABS: Basophils # 0.1 K/mcL (0.0-0.2); Basophils % 0.7 %; Eosinophils % 9.1 %; Hematocrit 31.8 % (37.5-50.1); Hemoglobin 10.2 g/dL (12.9-16.9); Lymphocytes # 1.3 K/mcL (0.6-4.6); Lymphocytes % 12.1 %; Mean Corpuscular HGB Conc 32.1 g/dL (31.6-35.5); Mean Corpuscular Hemoglobin 29.6 pg (28.0-33.3); Mean Corpuscular Volume 92.2 fL (83.0-100.0); Mean Platelet Volume 11.3 fL (9.4-12.4); Monocytes % 9.8 %; Neutrophils # 7.1 K/mcL (1.6-8.9); Platelet Count 201 K/mcL (140-400); Red Blood Count 3.45 M/mcL (4.19-5.50); Red Cell Distribution Width 14.9 % (11.5-14.5); Segmented Neutrophils % 67.3 %; White Blood Count 10.6 K/mcL (4.3-11.1)
[2019-08-06 03:38] LABS: Calcium 8.9 mg/dL (8.6-10.3); Potassium 3.7 mEq/L (3.5-5.1)
[2019-08-06] MEDS: *HR* Heparin 5,000 UNIT/ML VIAL SQ SCH ×2 (05:31→16:43)
[2019-08-06] MEDS: Isosorbide MONOnitrate (24 HR) 30 MG TAB.ER.24H PO SCH (08:30)
[2019-08-06] MEDS: Pregabalin 75 MG CAPSULE PO SCH ×2 (08:30→20:05)
[2019-08-06] MEDS: Aspirin Enteric Coated 81 MG Tablet PO SCH (08:32)
[2019-08-06] MEDS: amLODIPine 5 MG TABLET PO SCH (08:32)
[2019-08-06] MEDS: Insulin LISPRO 300 UNITS/3 ML VIAL SQ SCH ×3 (08:36→16:43)
[2019-08-06] MEDS: Insulin DETEMIR 100 UNIT/ML X5UNITS SQ SCH (20:05)
[2019-08-07] MEDS: Piperacillin/Tazobactam 3.375 GM in 0.9 % Sodium Chloride Mini Bag 100 ML IVPB SCH ×2 (00:55→11:03)
[2019-08-07 02:12] LABS: Basophils # 0.1 K/mcL (0.0-0.2); Basophils % 0.7 %; Eosinophils # 1.1 K/mcL (0.0-0.6); Eosinophils % 9.7 %; Hematocrit 32.5 % (37.5-50.1); Hemoglobin 10.8 g/dL (12.9-16.9); Immature Granulocytes % 1.6 % (0-4); Lymphocytes # 1.4 K/mcL (0.6-4.6); Mean Corpuscular HGB Conc 33.2 g/dL (31.6-35.5); Mean Corpuscular Hemoglobin 29.6 pg (28.0-33.3); Mean Platelet Volume 10.9 fL (9.4-12.4); Monocytes % 9.1 %; Neutrophils # 7.1 K/mcL (1.6-8.9); Platelet Count 220 K/mcL (140-400); Red Blood Count 3.65 M/mcL (4.19-5.50); Red Cell Distribution Width 14.8 % (11.5-14.5); Segmented Neutrophils % 65.9 %; White Blood Count 10.8 K/mcL (4.3-11.1)
[2019-08-07 02:31] LABS: Calcium 9.3 mg/dL (8.6-10.3); Potassium 4.1 mEq/L (3.5-5.1)
[2019-08-07] MEDS: *HR* Heparin 5,000 UNIT/ML VIAL SQ SCH ×2 (06:08→17:51)
[2019-08-07] MEDS: Insulin LISPRO 300 UNITS/3 ML VIAL SQ SCH ×3 (07:56→17:51)
[2019-08-07] MEDS ORDERED: Aminoglycoside Consult 1 EACH MC ONE (09:47)
[2019-08-07] MEDS: amLODIPine 5 MG TABLET PO SCH (10:33)
[2019-08-07] MEDS: Aspirin Enteric Coated 81 MG Tablet PO SCH (10:33)
[2019-08-07] MEDS: Pregabalin 75 MG CAPSULE PO SCH ×2 (10:34→20:34)
[2019-08-07] MEDS: Isosorbide MONOnitrate (24 HR) 30 MG TAB.ER.24H PO SCH (10:34)
[2019-08-07] MEDS: cefTRIAXone 2,000 MG in 0.9 % Sodium Chloride Mini Bag 100 ML IVPB SCH (15:53)
[2019-08-07] MEDS: metroNIDAZOLE 500 MG TABLET PO SCH ×2 (15:53→20:33)
[2019-08-07] MEDS: Insulin DETEMIR 100 UNIT/ML X5UNITS SQ SCH (20:34)
[2019-08-07] MEDS: Topiramate 25 MG TABLET PO SCH (20:34)
[2019-08-07] MEDS: Torsemide 20 MG TABLET PO SCH (20:37)
[2019-08-08 04:09] LABS: Hematocrit 32.7 % (37.5-50.1); Hemoglobin 10.8 g/dL (12.9-16.9); Mean Corpuscular Hemoglobin 29.2 pg (28.0-33.3); Mean Corpuscular Volume 88.4 fL (83.0-100.0); Mean Platelet Volume 10.4 fL (9.4-12.4); Platelet Count 243 K/mcL (140-400); Red Cell Distribution Width 14.8 % (11.5-14.5); White Blood Count 11.5 K/mcL (4.3-11.1)
[2019-08-08 04:29] LABS: Calcium 9.5 mg/dL (8.6-10.3); Potassium 3.9 mEq/L (3.5-5.1)
[2019-08-08] MEDS: *HR* Heparin 5,000 UNIT/ML VIAL SQ SCH ×2 (06:13→16:48)
[2019-08-08] MEDS: Pregabalin 75 MG CAPSULE PO SCH ×2 (07:40→21:13)
[2019-08-08] MEDS: metroNIDAZOLE 500 MG TABLET PO SCH ×3 (07:41→21:13)
[2019-08-08] MEDS: Insulin DETEMIR 100 UNIT/ML X5UNITS SQ SCH ×2 (07:41→21:15)
[2019-08-08] MEDS: Aspirin Enteric Coated 81 MG Tablet PO SCH (07:41)
[2019-08-08] MEDS: amLODIPine 5 MG TABLET PO SCH (07:41)
[2019-08-08] MEDS: Torsemide 20 MG TABLET PO SCH ×2 (07:41→15:09)
[2019-08-08] MEDS: Insulin LISPRO 300 UNITS/3 ML VIAL SQ SCH ×3 (07:42→16:48)
[2019-08-08] MEDS: Isosorbide MONOnitrate (24 HR) 30 MG TAB.ER.24H PO SCH (07:42)
[2019-08-08] MEDS: cefTRIAXone 2,000 MG in 0.9 % Sodium Chloride Mini Bag 100 ML IVPB SCH (15:08)
[2019-08-08] MEDS: Topiramate 25 MG TABLET PO SCH (21:14)
[2019-08-09 04:47] LABS: Hematocrit 34.3 % (37.5-50.1); Hemoglobin 11.3 g/dL (12.9-16.9); Mean Corpuscular HGB Conc 32.9 g/dL (31.6-35.5); Mean Platelet Volume 10.5 fL (9.4-12.4); Platelet Count 243 K/mcL (140-400); Red Blood Count 3.77 M/mcL (4.19-5.50); White Blood Count 11.7 K/mcL (4.3-11.1)
[2019-08-09 05:07] LABS: Calcium 9.5 mg/dL (8.6-10.3); Potassium 3.7 mEq/L (3.5-5.1)
[2019-08-09] MEDS: *HR* Heparin 5,000 UNIT/ML VIAL SQ SCH (05:56)
[2019-08-09] MEDS: Torsemide 20 MG TABLET PO SCH (07:27)
[2019-08-09] MEDS: metroNIDAZOLE 500 MG TABLET PO SCH (07:27)
[2019-08-09] MEDS: Insulin DETEMIR 100 UNIT/ML X5UNITS SQ SCH (07:27)
[2019-08-09] MEDS: Aspirin Enteric Coated 81 MG Tablet PO SCH (07:27)
[2019-08-09] MEDS: amLODIPine 5 MG TABLET PO SCH (07:27)
[2019-08-09] MEDS: Isosorbide MONOnitrate (24 HR) 30 MG TAB.ER.24H PO SCH (07:27)
[2019-08-09] MEDS: Pregabalin 75 MG CAPSULE PO SCH (07:27)
[2019-08-09] MEDS: Insulin LISPRO 300 UNITS/3 ML VIAL SQ SCH (07:32)
[2019-08-09 07:33] VITALS: BP 119/67
== END 2019-08-09 11:45 | DRG 617 ==
LOC: EMEROOARM 17:15 → 3NENU 17:15 → SUATTDRO 18:43 → 3NENU 19:41 → SUATTDRO 08-04 12:43
PROVIDERS: ADMIT Internal Medicine; ATTEND Internal Medicine

== ENCOUNTER 2019-08-25 16:03 | Observation (INO) ==
[2019-08-25] MEDS ORDERED: 0.9 % Sodium Chloride 1,000 ML IVC ONE (16:15)
[2019-08-25 16:48] LABS: Basophils # 0.2 K/mcL (0.0-0.2); Basophils % 1.1 %; Eosinophils # 0.9 K/mcL (0.0-0.6); Eosinophils % 5.5 %; Hematocrit 35.7 % (37.5-50.1); Hemoglobin 12.1 g/dL (12.9-16.9); Immature Granulocytes % 3.5 % (0-4); Lymphocytes # 1.8 K/mcL (0.6-4.6); Lymphocytes % 10.8 %; Mean Corpuscular HGB Conc 33.9 g/dL (31.6-35.5); Mean Corpuscular Hemoglobin 29.4 pg (28.0-33.3); Mean Corpuscular Volume 86.7 fL (83.0-100.0); Mean Platelet Volume 10.9 fL (9.4-12.4); Monocytes # 1.9 K/mcL (0.0-1.3); Monocytes % 11.2 %; Neutrophils # 11.6 K/mcL (1.6-8.9); Platelet Count 191 K/mcL (140-400); Red Blood Count 4.12 M/mcL (4.19-5.50); Red Cell Distribution Width 15.9 % (11.5-14.5); Segmented Neutrophils % 67.9 %
[2019-08-25 16:51] LABS: INR 1.1; Prothrombin Time 12.9 Seconds (9.4-12.1)
[2019-08-25 16:54] LABS: Activated Partial Thrombo Time 28.4 Seconds (26.0-36.0)
[2019-08-25 17:12] LABS: Albumin 3.7 g/dL (3.5-5.7); Bilirubin,Indirect 0.3 mg/dL (0.0-1.0); Bilirubin,Total 0.3 mg/dL (0.3-1.0); Calcium 9.6 mg/dL (8.6-10.3); Globulin 3.8 g/dL (2.4-3.5); Magnesium 1.8 mg/dL (1.6-2.6); Phosphorous 4.9 mg/dL (2.7-4.5); Potassium 4.1 mEq/L (3.5-5.1); Total Protein 7.5 g/dL (6.4-8.9)
[2019-08-25 17:13] LABS: Troponin I 0.04 ng/mL (< 0.04)
[2019-08-25 19:48] LABS: Bilirubin,Urine Negative (Negative); Blood,Urine Negative (Negative); Clarity,Urine Clear (Clear); Color,Urine Yellow (Yellow); Glucose,Urine (UA) Normal (Normal); Ketones,Urine Negative (Negative); Leukocyte Esterase,Urine Negative (Negative); Nitrite,Urine Negative (Negative); Protein,Urine 30 mg/dL (Neg-Trace); Specific Gravity,Urine 1.012 (1.010-1.025); Urobilinogen,Urine Normal (Normal)
[2019-08-25 19:51] LABS: Bacteria,Urine None Seen per hpf (None-Few); Hyaline Casts,Urine None Seen per lpf (None-Few); RBC,Urine 0-3 per hpf (0-3); Squamous Epithelial Cell,Urine Moderate per lpf (None-Few); WBC,Urine 0-3 per hpf (0-3)
[2019-08-25 19:53] LABS: ABG Base Excess -1 mEq/L (-2 to 3); ABG HCO3 24 mEq/L (21-27); ABG Oxygen Saturation 94 % (95-98); ABG PCO2 38 mmHg (35-45); ABG PH 7.41 pH Units (7.32-7.45); ABG PO2 72 mmHg (85-104); ABG TCO2 25 mEq/L (20-26)
[2019-08-26] MEDS ORDERED: Naloxone 0.4 MG/ML INJ IVP PRN (04:13)
[2019-08-26] MEDS: cefTRIAXone 2,000 MG in Water for inj. (sterile) 20 ML IVP SCH (05:08)
[2019-08-26] MEDS ORDERED: Acetaminophen IV 1,000 MG/100 ML INFUS..BTL IVPB ONE (05:12)
[2019-08-26] MEDS ORDERED: Dextrose Gel 15 GM/37.5 ML TUBE PO PRN ×2 (05:20)
[2019-08-26] MEDS ORDERED: D5% in Water 1,000 ML IVC PRN (05:20)
[2019-08-26] MEDS ORDERED: *HR* Dextrose 50 % in Water (Syg) 50 ML SYRINGE IVP PRN (05:20)
[2019-08-26 05:34] LABS: Hematocrit 37.7 % (37.5-50.1); Hemoglobin 12.6 g/dL (12.9-16.9); Mean Corpuscular HGB Conc 33.4 g/dL (31.6-35.5); Mean Corpuscular Volume 86.9 fL (83.0-100.0); Mean Platelet Volume 11.8 fL (9.4-12.4); Platelet Count 211 K/mcL (140-400); Red Blood Count 4.34 M/mcL (4.19-5.50); White Blood Count 16.7 K/mcL (4.3-11.1)
[2019-08-26 05:56] LABS: Calcium 9.6 mg/dL (8.6-10.3); Potassium 3.7 mEq/L (3.5-5.1)
[2019-08-26 06:00] LABS: Phosphorous 4.7 mg/dL (2.7-4.5); Troponin I 0.04 ng/mL (< 0.04)
[2019-08-26] MEDS: Insulin LISPRO 300 UNITS/3 ML VIAL SQ SCH ×3 (06:02→19:07)
[2019-08-26] MEDS: MetroNIDAZOLE 500 MG/100 ML 500 MG/100 ML BAG IVPB SCH ×2 (08:12→17:39)
[2019-08-26] MEDS ORDERED: Ipratropium/Albuterol Neb 3 ML IH PRN (08:38)
[2019-08-26] MEDS ORDERED: Nitroglycerin 0.4 MG TAB.SUBL SL PRN (08:38)
[2019-08-26] MEDS: Cholecalciferol (D-3) 1,000 UNIT (25MCG) TABLET PO SCH (11:34)
[2019-08-26] MEDS: Aspirin Enteric Coated 81 MG Tablet PO SCH (11:34)
[2019-08-26] MEDS: amLODIPine 5 MG TABLET PO SCH (11:35)
[2019-08-26] MEDS: Isosorbide MONOnitrate (24 HR) 30 MG TAB.ER.24H PO SCH (11:35)
[2019-08-26] MEDS: Torsemide 20 MG TABLET PO SCH ×2 (11:35→20:59)
[2019-08-26] MEDS: Pregabalin 75 MG CAPSULE PO SCH ×2 (11:35→20:59)
[2019-08-26] MEDS: Topiramate 25 MG TABLET PO SCH (20:59)
[2019-08-27] MEDS: MetroNIDAZOLE 500 MG/100 ML 500 MG/100 ML BAG IVPB SCH ×2 (00:07→08:16)
[2019-08-27] MEDS: Insulin LISPRO 300 UNITS/3 ML VIAL SQ SCH ×4 (00:07→17:25)
[2019-08-27] MEDS: cefTRIAXone 2,000 MG in Water for inj. (sterile) 20 ML IVP SCH (05:31)
[2019-08-27] MEDS: Cholecalciferol (D-3) 1,000 UNIT (25MCG) TABLET PO SCH (08:15)
[2019-08-27] MEDS: Aspirin Enteric Coated 81 MG Tablet PO SCH (08:15)
[2019-08-27] MEDS: amLODIPine 5 MG TABLET PO SCH (08:15)
[2019-08-27] MEDS: Isosorbide MONOnitrate (24 HR) 30 MG TAB.ER.24H PO SCH (08:15)
[2019-08-27] MEDS: Torsemide 20 MG TABLET PO SCH ×2 (08:15→20:26)
[2019-08-27] MEDS: Pregabalin 75 MG CAPSULE PO SCH ×2 (08:15→20:26)
[2019-08-27 09:31] LABS: Basophils # 0.2 K/mcL (0.0-0.2); Eosinophils # 0.9 K/mcL (0.0-0.6); Eosinophils % 4.7 %; Hematocrit 39.6 % (37.5-50.1); Immature Granulocytes % 3.9 % (0-4); Lymphocytes # 1.3 K/mcL (0.6-4.6); Lymphocytes % 6.7 %; Mean Corpuscular HGB Conc 32.8 g/dL (31.6-35.5); Mean Corpuscular Volume 88.4 fL (83.0-100.0); Mean Platelet Volume 11.2 fL (9.4-12.4); Monocytes % 10.8 %; Neutrophils # 13.7 K/mcL (1.6-8.9); Platelet Count 236 K/mcL (140-400); Red Blood Count 4.48 M/mcL (4.19-5.50); Segmented Neutrophils % 72.9 %; White Blood Count 18.8 K/mcL (4.3-11.1)
[2019-08-27 09:47] LABS: Calcium 9.6 mg/dL (8.6-10.3); Potassium 3.7 mEq/L (3.5-5.1)
[2019-08-27] MEDS: Topiramate 25 MG TABLET PO SCH (20:26)
[2019-08-27] MEDS ORDERED: Insulin DETEMIR 100 UNIT/ML X5UNITS SQ SCH (21:00)
[2019-08-28] MEDS: cefTRIAXone 2,000 MG in Water for inj. (sterile) 20 ML IVP SCH (04:49)
[2019-08-28] MEDS: Aspirin Enteric Coated 81 MG Tablet PO SCH (09:12)
[2019-08-28] MEDS: Pregabalin 75 MG CAPSULE PO SCH ×2 (09:12→22:51)
[2019-08-28] MEDS: amLODIPine 5 MG TABLET PO SCH (09:12)
[2019-08-28] MEDS: Torsemide 20 MG TABLET PO SCH (09:12)
[2019-08-28] MEDS: Cholecalciferol (D-3) 1,000 UNIT (25MCG) TABLET PO SCH (09:12)
[2019-08-28] MEDS: Isosorbide MONOnitrate (24 HR) 30 MG TAB.ER.24H PO SCH (09:12)
[2019-08-28] MEDS: Insulin LISPRO 300 UNITS/3 ML VIAL SQ SCH ×3 (09:13→17:41)
[2019-08-28 13:56] LABS: Basophils # 0.2 K/mcL (0.0-0.2); Basophils % 0.9 %; Eosinophils # 0.7 K/mcL (0.0-0.6); Hematocrit 36.6 % (37.5-50.1); Hemoglobin 11.6 g/dL (12.9-16.9); Immature Granulocytes % 3.2 % (0-4); Lymphocytes # 1.8 K/mcL (0.6-4.6); Mean Corpuscular HGB Conc 31.7 g/dL (31.6-35.5); Mean Corpuscular Hemoglobin 28.7 pg (28.0-33.3); Mean Corpuscular Volume 90.6 fL (83.0-100.0); Mean Platelet Volume 11.2 fL (9.4-12.4); Monocytes # 2.2 K/mcL (0.0-1.3); Monocytes % 12.2 %; Neutrophils # 12.3 K/mcL (1.6-8.9); Platelet Count 194 K/mcL (140-400); Red Blood Count 4.04 M/mcL (4.19-5.50); Red Cell Distribution Width 16.1 % (11.5-14.5); Segmented Neutrophils % 69.7 %; White Blood Count 17.6 K/mcL (4.3-11.1)
[2019-08-28 14:04] LABS: Calcium 9.1 mg/dL (8.6-10.3); Potassium 3.9 mEq/L (3.5-5.1)
[2019-08-28] MEDS: 0.9 % Sodium Chloride 1,000 ML IVC SCH (15:22)
[2019-08-28] MEDS ORDERED: Insulin DETEMIR 100 UNIT/ML X5UNITS SQ SCH (21:00)
[2019-08-28] MEDS: Topiramate 25 MG TABLET PO SCH (22:51)
[2019-08-29] MEDS: cefTRIAXone 2,000 MG in Water for inj. (sterile) 20 ML IVP SCH (04:19)
[2019-08-29] MEDS: 0.9 % Sodium Chloride 1,000 ML IVC SCH (04:21)
[2019-08-29 07:23] LABS: Basophils # 0.1 K/mcL (0.0-0.2); Basophils % 0.8 %; Eosinophils # 0.7 K/mcL (0.0-0.6); Eosinophils % 4.3 %; Hematocrit 35.2 % (37.5-50.1); Hemoglobin 11.3 g/dL (12.9-16.9); Immature Granulocytes % 3.9 % (0-4); Lymphocytes # 1.3 K/mcL (0.6-4.6); Lymphocytes % 7.9 %; Mean Corpuscular HGB Conc 32.1 g/dL (31.6-35.5); Mean Corpuscular Hemoglobin 28.8 pg (28.0-33.3); Mean Corpuscular Volume 89.6 fL (83.0-100.0); Mean Platelet Volume 11.5 fL (9.4-12.4); Monocytes # 2.1 K/mcL (0.0-1.3); Monocytes % 12.5 %; Neutrophils # 11.8 K/mcL (1.6-8.9); Platelet Count 203 K/mcL (140-400); Red Blood Count 3.93 M/mcL (4.19-5.50); Segmented Neutrophils % 70.6 %; White Blood Count 16.8 K/mcL (4.3-11.1)
[2019-08-29 07:45] LABS: Potassium 3.7 mEq/L (3.5-5.1)
[2019-08-29] MEDS: amLODIPine 5 MG TABLET PO SCH (08:40)
[2019-08-29] MEDS: Isosorbide MONOnitrate (24 HR) 30 MG TAB.ER.24H PO SCH (08:41)
[2019-08-29] MEDS: Insulin LISPRO 300 UNITS/3 ML VIAL SQ SCH (08:41)
[2019-08-29] MEDS: Pregabalin 75 MG CAPSULE PO SCH (08:41)
[2019-08-29] MEDS: Cholecalciferol (D-3) 1,000 UNIT (25MCG) TABLET PO SCH (08:41)
[2019-08-29] MEDS: Aspirin Enteric Coated 81 MG Tablet PO SCH (08:46)
[2019-08-29 11:50] VITALS: BP 157/73
== END 2019-08-29 13:01 ==
LOC: EMEROOARM 16:03 → 3NENU 16:03 → SUATTDRO 21:39 → 3NENU 22:33
PROVIDERS: ADMIT Family Medicine; ATTEND Internal Medicine